=== PATIENT | female | born 1965 | race Caucasian/White ===

== ENCOUNTER → 2016-04-21 | Outpatient (CLI) | payer OTHER ==
[~2016-04-21] MED LIST: ADVIN25/60 INH; ALBU0.5N2 NEB; ALBUAER INH; FEXO1TAB49 PO; IBUPROFEN PO; LEVO150T9 PO; MYCO500T4 PO; PRED-301 PO; PRLSR20 PO
--- NOTE | 2016-04-21 11:18 | DIAGNOSTIC IMAGING REPORT ---
CT OF THE CHEST WITHOUT IV CONTRAST CLINICAL HISTORY: Post inflammatory pulmonary fibrosis COMPARISON STUDY: Chest CT January 06, 2007 and chest radiograph June 25, 2015. CT DOSE: 773.20 mGy.cm TECHNIQUE: Axial images of the chest were obtained without IV contrast. Images were reviewed in the axial, sagittal, and coronal planes. IV contrast was not administered for this examination. FINDINGS: No enlarged axillary, mediastinal or hilar lymph nodes are present. The size of the heart is at the upper limits of normal. The thymus is prominent. This is unchanged since CT of January 06, 2007. There is no pericardial effusion. Central airways are patent. There is no pneumothorax or pleural effusion. Mild mosaic attenuation is noted. There are scattered groundglass and tree-in-bud opacities within the lungs which are new since CT of January 06, 2007. There is no traction bronchiectasis. No honeycombing is identified. There are post surgical findings within the lingula and the left lower lobe. Bony thorax and upper abdomen are unremarkable on this unenhanced exam with exception of gallstones. IMPRESSION: 1. Scattered groundglass opacities and tree-in-bud nodules throughout the lungs. While nonspecific, an infectious etiology is favored. Interstitial lung disease such as NSIP could also in part account for the findings. A follow-up chest CT in 3 months to ensure resolution is recommended. 2. Mild mosaic attenuation which may reflect air trapping. 3. No honeycombing. No traction bronchiectasis. 4. Cholelithiasis. Electronically signed by: Gee Bagley M.D. 04/21/2016 11:16 AM Dictated Date/Time: 04/21/2016 10:45 AM
== END | disposition home or self-care (01) ==
LOC: C.CTS 10:27
PROVIDERS: ATTEND Internal Medicine Critical Care Medicine
DX: J84.10 Pulmonary fibrosis, unspecified (principal); R91.8 Other nonspecific abnormal finding of lung field; K80.20 Calculus of gallbladder without cholecystitis without obstruction

== ENCOUNTER → 2016-06-02 | Outpatient (CLI) | payer OTHER ==
--- NOTE | 2016-06-02 13:55 | MAMMOGRAPHY REPORT ---
BILATERAL DIGITAL DIAGNOSTIC MAMMOGRAM TOMOSYNTHESIS WITH CAD: 06/02/2016 CLINICAL HISTORY: Second follow-up of a probably benign focal asymmetry in the lower outer posterior left breast. Also annual bilateral screening mammogram. TECHNIQUE: Bilateral breast tomosynthesis in addition to standard 2D mammography was performed. Curr ent study was also evaluated with a Computer Aided Detection (CAD) system. COMPARISON: Comparison is made to exams dated: 04/18/2015 mammogram, 04/26/2015 mammogram, 04/26/2015 u ltrasound, and 12/03/2015 mammogram - [facility]. BREAST COMPOSITION: There are scattered areas of fibroglandular density in both breasts. FINDINGS: The 7 mm focal asymmetry in the lower outer posterior left breast is visually stable to so mewhat less conspicuous compared to the prior exams. Mammographic measurements are stable. No new suspicious mass, architectural distortion or new cluster of microcalcifications is seen bilaterally. IMPRESSION: ACR-BI-RADS CATEGORY 3: PROBABLY BENIGN The 7 mm focal asymmetry in the lower outer posterior left breast is unchanged in appearance dating back to 04/18/2015, most likely represents the patient's normal parenchymal pattern. However, given that no remote mammograms are available, another 12 month follow-up exam is recommended to ensure a t least 2 years of mammographic stability. Routine right mammography is also due at that time. These results and recommendations were discussed with the patient at the time of the exam. She tent atively scheduled the 12 month follow-up diagnostic mammogram prior to leaving our department. Approximately 10% of breast cancers are not detected with mammography. A negative mammographic repor t should not delay biopsy if a clinically suggestive mass is present. Jasmyn Miles M.D. ay/:06/02/2016 11:58:07 Investigations Manager: Ann PACE(Sharmila)(Noelle), [facility] letter sent: Follow Up Recommended 3 BI-RADS Code: ACR-BI-RADS Category 3: Probably Benign
== END | disposition home or self-care (01) ==
LOC: C.MAMM 10:55
PROVIDERS: ATTEND Obstetrics & Gynecology
DX: R92.8 Other abnormal and inconclusive findings on diagnostic imaging of breast (principal)

== ENCOUNTER → 2016-07-16 | Outpatient (CLI) | payer OTHER ==
[~2016-07-16] MED LIST changes: +CYCL10TA6 PO; +CZR50 PO; +ESTR1DIS TOP; +LEVO137T3 PO; +MTR800 PO; +MYCO500T5 PO; +OXYC-57 PO; +PRED20TA PO
--- NOTE | 2016-07-16 11:52 | DIAGNOSTIC IMAGING REPORT ---
CHEST CT WITHOUT CONTRAST CT DOSE: 423.78 mGycm HISTORY: Dyspnea J45.909 Extrinsic [id number] Acute upper respiratory infection TECHNIQUE: Multiaxial CT images of the chest were performed without contrast. COMPARISON: 04/21/2016 FINDINGS: No significant mediastinal or hilar adenopathy. Thoracic aorta is normal in course and caliber. Slight interstitial prominence in the lung bases as well as the right as well as left midlung region appear stable. There is no significant pulmonary nodularity. There are no consolidative changes. Upper lungs are considered clear. IMPRESSION: 1. Generally stable evaluation of the chest compared to the prior study. 2. Slight nonspecific interstitial prominence of the mid to lower lung regions bilaterally unaltered from the prior exam. 3. No evidence for new interval or progressive process. No consolidative infiltrative change. Electronically signed by: Dmitri Carbajal M.D. 07/16/2016 11:51 AM Dictated Date/Time: 07/16/2016 11:48 AM
== END | disposition home or self-care (01) ==
LOC: C.CTS 11:15
PROVIDERS: ATTEND Internal Medicine Critical Care Medicine
DX: J06.9 Acute upper respiratory infection, unspecified (principal); J45.909 Unspecified asthma, uncomplicated; R05 Cough

== ENCOUNTER → 2016-07-22 | Outpatient (CLI) | payer OTHER ==
[2016-07-22 12:12] LABS: BASO % 0.9 %; BASO ABS # 0.08 K/uL (0-0.2); COMPLETE YES; EOS % 6.5 %; HEMATOCRIT 46.9 % (37-47); IG% 0.3 %; LYMPH % 19.3 %; LYMPH ABS # 1.75 K/uL (1.2-3.4); MEAN CELL VOLUME 94.9 fL (80-100); MEAN CORPUSCULAR HEMOGLOBIN 29.6 pg (25-34); MEAN CORPUSCULAR HGB CONC 31.1 g/dl (32-36); MEAN PLATELET VOLUME 9.4 fL (7.4-10.4); MONO % 4.9 %; NEUT % 68.1 %; PLATELET COUNT 309 K/uL (130-400); RED BLOOD COUNT 4.94 M/uL (4.2-5.4); WHITE BLOOD COUNT 9.07 K/uL (4.8-10.8)
[2016-07-22 16:06] LABS: ALT/SGPT 24 U/L (12-78); AST/SGOT 21 U/L (15-37); BLOOD UREA NITROGEN 11 mg/dl (7-18); BUN/CREATININE RATIO 15.5 (10-20); CALCIUM 8.9 mg/dl (8.5-10.1); CARBON DIOXIDE 28 mmol/L (21-32); CHLORIDE 106 mmol/L (98-107); CREATININE 0.68 mg/dl (0.60-1.20); GLUCOSE 85 mg/dl (70-99); POTASSIUM 4.5 mmol/L (3.5-5.1); SODIUM 142 mmol/L (136-145)
[2016-07-22 16:13] LABS: HDL CHOLESTEROL 45 mg/dl
[2016-07-22 16:17] LABS: ALB/GLOB RATIO 0.7 (0.9-2); ALKALINE PHOSPHATASE 95 U/L (45-117); CHOLESTEROL 192 mg/dl (0-200); CHOLESTEROL/HDL RATIO 4.3; LDL CHOLESTEROL CALCULATED 126 mg/dl; TRIGLYCERIDES 103 mg/dl (0-150); VERY LOW DENSITY LIPOPROT CALC 21 mg/dl
== END | disposition home or self-care (01) ==
LOC: C.LAB1850 11:06
PROVIDERS: ATTEND Internal Medicine
DX: Z13.6 Encounter for screening for cardiovascular disorders (principal); E55.9 Vitamin D deficiency, unspecified; E03.9 Hypothyroidism, unspecified; Z79.899 Other long term (current) drug therapy

== ENCOUNTER → 2016-07-23 | Outpatient (CLI) | payer OTHER ==
[2016-07-25 16:54] LABS: ALBUMIN 3.7 G/DL (3.8-4.8); GAMMA GLOBULIN 1.5 G/DL (0.8-1.7); TOTAL PROTEIN 7.5 G/DL (6.2-8.3)
== END | disposition home or self-care (01) ==
LOC: C.LABBFT 10:48
PROVIDERS: ATTEND Internal Medicine
DX: Z11.59 Encounter for screening for other viral diseases (principal); D89.2 Hypergammaglobulinemia, unspecified

== ENCOUNTER → 2016-08-05 | Outpatient (CLI) | payer OTHER ==
[2016-08-08 08:07] LABS: CREATININE UR 123 MG/DL (20-320)
== END | disposition home or self-care (01) ==
LOC: C.LABBFT 09:42
PROVIDERS: ATTEND Internal Medicine
DX: D89.2 Hypergammaglobulinemia, unspecified (principal)

== ENCOUNTER → 2016-08-19 | Outpatient (CLI) | payer OTHER ==
--- NOTE | 2016-08-20 06:42 | SPLIT NIGHT TECHNICIAN REPORT ---
[facility] Split Night Polysomnogram - Pediatric Dietician Report Study date: 08/19/2016 Referring Physician: DR. IVANIA DELGADO Name: KRYSTAL SIMPSON Pediatric Dietician: LUANN Batista. Date of : 1965 Height: 50 years, Height 5' 3.5" Sex: Female Weight: 269 lbs Age: 50 BMI: Medications: 46.9 FEXOFENADINE 180 MG, LEVOFLOXACIN 750 MG, LOSARTAN 50 MG, ADVAIR DISKUS 250-50 MCG/DOSE, ALBUTEROL SULFATE, PROVENTIL HFA, ESTRADIOL 0.025 MG/24 HR, ESTRADIOL 0.075 MG/24 HR, MYCOPHENOLATE MOFETIL 500 MG, FLUTICASONE PROPIONATE, IBUPROFEN 800 MG, PREDNISONE 5 MG Patient History 50 yr-old female here for a baseline/split study. She has a history of excessive daytime sleepiness and snoring. Her [place] scale is 13. The test was started on room air. ETCO2 testing is included in this study. Room 1 Parameters Monitored NPSG: E1-M2, E2-M1, Fp1-M2, Fp2-M1, F3-M2, F4-M2, F4-M1, C3-M2, C4-M2, C4-M1, O1-M2, O2-M2, O2-M1, T3-M2, T4-M1, P3-M2, P4-M1, CHIN1, CHIN2, HR, EKG, Legs, PFLOW, SNOR, FLOW, CFLOW, Tidal Volume, THOR, ABDO, SpO2, PLTH, CPRESS, ETCO2 Wave, ETCO2, pH SLEEP SUMMARY DATA DIAGNOSTIC TREATMENT Lights Out: 10:15:45 PM 2:16:45 AM Lights On: 2:04:45 AM 5:48:45 AM Total Recording Time (TRT): 229.0 min. 212.0 min. Total Sleep Time (TST): 178.5 min. 191.5 min. NREM Time: 178.5 min. 126.0 min. REM Time: 0.0 min. 65.5 min. Sleep Period Time (SPT): 204.5 min. 199.0 min. Sleep Efficiency (SE): 78 % 90 % Sleep Latency: 24.5 min. 13.0 min. Arousal Index: 21.2 10.0 PAP Treatment Levels: 4, 6, 8, 10, 11 * Optimal Pressure(s) SLEEP STAGING DATA DIAGNOSTIC TREATMENT Duration (min) TST % Duration (min) TST % Stage Wake: 50.5 min. -- 20.5 min. -- WASO: 26.0 min. -- 7.5 min. -- NREM: 178.5 min. 100 % 126.0 min. 66 % Stage N1: 20.0 min. 11 % 12.5 min. 7 % Stage N2: 128.0 min. 72 % 76.0 min. 40 % Stage N3: 30.5 min. 17 % 37.5 min. 20 % REM: 0.0 min. 0 % 65.5 min. 34 % POSITIONAL DATA Event Count Index Event Count Index Supine: N/A N/A N/A N/A Supine NREM: N/A N/A N/A N/A Supine REM: N/A N/A N/A N/A Non-Supine: 65 21.2 97 30.4 Non-Supine NREM: 65 21.2 85 40.5 Non-Supine REM: N/A N/A 12 11.0 AROUSAL SUMMARY DATA: Event Count Index Event Count Index Apnea Arousals: 0 0.0 1 9.1 Hypopnea Arousals: 4 1.3 12 3.8 Snore Arousals: 6 2.0 1 0.3 PLM Arousals: 25 8.4 3 0.9 Non-Specific Arousals: 25 8.4 12 3.8 Total Arousals: 63 21.2 32 10.0 MYOCLONUS (PLM) Event Count Index Event Count Index PLM: 89 29.9 9 2.8 PLM AROUSAL: 25 8.4 3 0.9 PLM W/O AROUSAL 89 29.9 6 1.9 PLM W/RESP EVENT 3 0.0 1 0.0 MYOCLONUS (PLM) Event Count Index Event Count Index LM: 2 11.1 24 7.5 LM AROUSAL: 2 0.7 4 1.3 LM W/O AROUSAL LM W/RESP EVENT LM NON SPECIFIC 87 29.2 20 6.3 HEART RATE DATA DIAGNOSTIC TREATMENT Sleep (bpm): 89 87 REM (bpm): N/A 75 NREM (bpm): 83 88 Tachycardia Count: 0 0 Tachycardia Duration: 0.00 0 Bradycardia Count: 0 0 Bradycardia Duration: 0.00 0 DIAGNOSTIC PORTION TREATMENT PORTION RESPIRATORY DATA Event Count Index Event Count Index AHI: -- 21.2 -- 30.4 RDI: -- 21.8 -- 30 Obstructive Apnea: 0 0.0 28 8.8 Central Apnea: 0 0.0 1 0.3 Mixed Apnea: 0 0.0 0 0.0 Hypopnea: 63 21.2 68 21.3 RERA: 2 0.7 0 0.0 Total Apneas: 0 0.0 29 9.1 RESPIRATORY DATA REM NREM SLEEP REM NREM SLEEP Supine Position: Obstructive Apneas: N/A N/A N/A N/A N/A N/A Central Apneas: N/A N/A N/A N/A N/A N/A Mixed Apneas: N/A N/A N/A N/A N/A N/A Hypopneas: N/A N/A N/A N/A N/A N/A RERA N/A N/A N/A N/A N/A N/A Total Supine Events: N/A N/A N/A N/A N/A N/A Supine AHI: N/A N/A N/A N/A N/A N/A Supine RDI: N/A N/A N/A N/A N/A N/A REM NREM SLEEP REM NREM SLEEP Non-Supine Position: Obstructive Apneas: N/A 0 0 0 28 28 Central Apneas: N/A 0 0 1 0 1 Mixed Apneas: N/A 0 0 0 0 0 Hypopneas: N/A 63 63 11 57 68 RERA N/A 2 2 0 0 0 Total Supine Events: N/A 65 65 12 85 97 Supine AHI: N/A 21.2 21.2 11.0 40.5 30.4 Supine RDI: N/A 21.8 21.8 11.0 40.5 30.4 OXYGEN DESTAURATION DATA: Event Count Index Event Count Index REM Desaturations: N/A N/A 41 37.6 NREM Desaturations: 144 48.4 108 51.4 SNORE DATA DIAGNOSTIC TREATMENT Snore Time: 12.4 2:29:45 AM Snore TST%: 5 3 Snore Arousal Count: 6 1 Snore Arousal Index: 2.0 0.3 Desaturation Event Summary: Minimum %SpO2 Event Count Mean/Min/Max Duration(sec.) Desaturation Index % Time In Bed > 90 48 18.1 / 7.0 / 55.8 141.0 4.7 86 - 90 182 18.2 / 5.0 / 59.8 53.7 46.8 81 - 85 111 19.4 / 5.0 / 59.8 60.9 25.1 76 - 80 49 18.5 / 6.3 / 52.8 39.7 17.0 71 - 75 5 16.6 / 5.0 / 40.5 35.8 1.9 66 - 70 8 19.2 / 5.0 / 44.5 90.0 1.2 61 - 65 7 20.7 / 8.8 / 30.5 37.9 2.6 56 - 60 0 N/A 0.0 0.6 51 - 55 0 N/A 0.0 0.0 < 50 0 N/A 0.0 0.0 OXYGEN SATURATION DATA DIAGNOSTIC TREATMENT SpO2 Mean Sleep: 83 % 83 % SpO2 Mean REM: N/A % 75 % SpO2 Mean NREM: 83 % 88 % SpO2 Minimum Sleep: 72 % 56 % SpO2 Minimum REM: N/A % 56 % SpO2 Minimum NREM: 72 % 80 % Time Below 90% (TST): 167.7 157.9 Time Below 88% (TST): 151.9 117.9 Total REM NREM Awake <50% 0.0 min. 0.0 min. 0.0 min. 0.0 min. 51 - 60% 2.6 min. 2.6 min. 0.0 min. 0.0 min. 61 - 70% 16.4 min. 16.4 min. 0.0 min. 0.0 min. 71 - 80% 82.5 min. 27.0 min. 55.4 min. 0.1 min. 81 - 90% 312.9 min. 19.5 min. 236.8 min. 56.5 min. 91 - 100% 20.4 min. 0.0 min. 12.3 min. 8.1 min. Average 84 75 85 89 Minimum SpO2 56 56 72 77 Desaturation Event Index 41.1 37.6 49.7 7.6 # Desat. Events below 89% 300 41 251 8 Time(%) with Saturation below 89% 74.8 15.0 53.2 6.7 Time(min.) with Saturation below 89% 325.2 65.1 231.2 28.9 Recording Pediatric Dietician Comments: Ms. Simpson slept in the right and left positions. No cardiac arrhythmias were noted. PLMs were noted. No bruxism noted. Snoring was noted and scored as a 2-3 on a scale of 1 through 5. (0=no snoring, 5=snoring loud enough to be heard through a closed door or down the lim way) High ETCO2 levels were noted. At 2:05, she met specific Split-Night criteria during the diagnostic portion of this study. CPAP was initiated at +4 CMH2O and up-titrated to a level of +11 CMH2O, Cflex 2 which nearly eliminated all respiratory events and snoring. A Mirage FX Soft edge nasal mask size standard from [employer] was used during titration She awoke to use the restroom two times during the night. Ms. Simpson stated that she slept a little better than usual. The final report will be interpreted and signed by a sleep physician. The completed physician report will then be placed in the patient medical record. Therapy Event: Therapy (cm H20) 0 4 6 8 10 11 Total Time at Pressure (min.) 229.0 30.4 13.1 30.0 50.0 88.5 TST at Pressure (min.) 178.5 13.9 12.6 27.5 50.0 87.5 # Periods 1 1 1 1 1 1 Sleep Onset (min.) 24.5 13.0 0.0 0.0 0.0 0.0 REM Onset (min.) N/A N/A N/A 27.6 0.0 0.0 Sleep Efficiency % 77 45 96 91 100 98 Wakefulness (%) 22.1 54.3 3.8 8.3 0.0 1.1 Wakefulness (min.) 50.5 16.5 0.5 2.5 0.0 1.0 NREM 1 (%) 8.7 29.2 4.8 5.0 0.0 1.7 NREM 1 (min.) 20.0 8.9 0.6 1.5 0.0 1.5 NREM 2 (%) 55.9 16.5 91.4 76.8 0.0 40.7 NREM 2 (min.) 128.0 5.0 11.9 23.1 0.0 36.0 NREM 3 (%) 13.3 0.0 0.0 1.7 0.0 41.8 NREM 3 (min.) 30.5 0.0 0.0 0.5 0.0 37.0 REM (%) 0.0 0.0 0.0 8.2 100.0 14.7 REM (min.) 0.0 0.0 0.0 2.5 50.0 13.0 # Arousals 63 15 3 5 0 9 Arousal Index 21.2 64.9 14.3 10.9 0.0 6.2 # Snore 539 8 25 43 102 42 Snore Index 181.2 34.6 119.5 93.7 122.4 28.8 AHI 21.2 43.2 114.7 98.1 10.8 6.2 AHI Supine N/A N/A N/A N/A N/A N/A AHI Non-Supine 21.2 43.2 114.7 98.1 10.8 6.2 NREM AHI 21.2 43.2 114.7 102.9 N/A 6.4 REM AHI N/A N/A N/A 48.8 10.8 4.6 RDI 21.8 43.2 114.7 98.1 10.8 6.2 # Obstructive 0 0 3 25 0 0 # Central Ap 0 0 0 0 1 0 # Mixed 0 0 0 0 0 0 # Hypopneas 63 10 21 20 8 9 RERAS 2 0 0 0 0 0 Total Respiratory Events 65 10 24 45 9 9 Time Below SpO2 89.00% (min.) 160.2 12.7 9.6 21.6 50.0 42.2 Mean NREM SpO2 (%) 83 85 86 87 N/A 89 Mean REM SpO2 (%) N/A N/A N/A 73 73 85 Mean Sleep SpO2 (%) 83 85 86 85 73 88 Min NREM SpO2 (%) 72 82 81 80 N/A 83 Min REM SpO2 (%) N/A N/A N/A 59 56 80 Position Supine (min.) 0.0 0.0 0.0 0.0 0.0 0.0 Position Non-supine (min.) 178.5 13.9 12.6 27.5 50.0 87.5 LM Index Sleep 41.0 25.9 14.3 13.1 0.0 12.3 LM Index NREM 41.0 25.9 14.3 14.4 N/A 13.7 LM Index REM N/A N/A N/A 0.0 0.0 4.6 Mean Heart Rate (bpm) 89 85 82 83 94 86 Min Heart Rate (bpm) 71 80 73 68 87 71 CPAP REPORT Therapy Detail Time / Page # Comment CPAP 4 cm H2O Nasal Mask Flex Pressure Relief Humidifier on 2:16:32 AM / pg. 700 HER AHI IS OER 20. SHE HAS BEEN ASLEEP FOR OVER 2 HOURS. DUE TO LOW O2 SATS, STARTING SPLIT CPAP TEST AT AN AHI OF 20 CPAP 6 cm H2O Nasal Mask Flex Pressure Relief Humidifier on 2:47:07 AM / pg. 761 IINCREASED FOR HYPOPNEAS CPAP 8 cm H2O Nasal Mask Flex Pressure Relief Humidifier on 3:00:10 AM / pg. 787 EVENTS CPAP 10 cm H2O Nasal Mask Flex Pressure Relief Humidifier on 3:30:12 AM / pg. 847 INCREASED FOR APNEAS CPAP 11 cm H2O Nasal Mask Flex Pressure Relief Humidifier on 4:20:12 AM / pg. 947 INCREASED FOR HYPOPNEAS AND SNORING
--- NOTE | 2016-08-21 09:00 | POLYSOMNOGRAPH REPORT ---
CLINICAL DATA: A 50-year-old female with history of interstitial lung disease, rheumatoid arthritis, loud snoring and fatigue. She is referred by Dr. Rowley for a sleep study because of snoring and excessive daytime sleepiness. Her BMI is elevated at 47. Her [place] Sleepiness Score is elevated at 13/24. This was a split night sleep study. SLEEP ARCHITECTURE: For the diagnostic portion of the study, total sleep period was 204.5 minutes. Total sleep time was 178.5 minutes, all non-REM sleep. Sleep latency was 24.5 minutes. Arousal index was 21.2. Sleep efficiency was 78%. Sleep consisted of stage N1 11%, N2 72%, N3 17%. For the treatment portion of the study, total sleep period was 199 minutes. Total sleep time was 191.5 minutes divided between 126 minutes of non-REM sleep and 65.5 minutes of REM sleep. Sleep latency was 13 minutes. Arousal index was 10. Sleep efficiency was 90%. Sleep consisted of stage N1 7%, N2 40% and N3%, REM 34%. AROUSAL DATA: Prior to treatment, 63 arousals were recorded for an index of 21.2 per hour. During treatment 32 arousals were recorded for an index of 10 per hour. PLM DATA: Prior to treatment, 89 limb movements during sleep were noted for an index of 29.9 per hour. During treatment, 24 limb movements during sleep were noted for an index of 7.5 per hour. EKG: Heart rates ranged from 75-89 beats per minute. No arrhythmias were noted. RESPIRATORY DATA: Prior to treatment, moderate sleep apnea was documented. The AHI was 21.2. There were 63 hypopneic episodes and 2 RERAs noted. During treatment, the average AHI was 30.4. There were 28 obstructive and 1 mixed apneic episode. There were 68 hypopneic episodes. OXIMETRY DATA: Nocturnal hypoxemia was seen prior to treatment. Oxygen arnulfo was 72% prior to treatment during non-REM sleep. The mean saturation during treatment was 83%. ADJUNCT HISTORY INSTRUCTOR'S COMMENTS AND TREATMENT SUMMARY: The patient slept in the right and left positions. Snoring was moderate, rated 3 on a scale of 1-5. At 2:05 a.m., she met split night criteria. CPAP was started using a Mirage FX soft edge nasal mask size standard from [employer]. She was titrated up to her final pressure setting of 11 cm of water pressure. At 11 cm of water pressure, she slept for 87.5 minutes with an AHI of 6. She continued to have persistent nocturnal hypoxemia intermittently in spite of CPAP. IMPRESSION: Moderate sleep apnea/hypopnea with diagnostic AHI of 21.2 with significant nocturnal hypoxemia improved on CPAP 11 cm water pressure, C-Flex setting #2, Mirage FX soft edge nasal mask size standard from [employer]. In spite of this the patient continued to have nocturnal hypoxemia. RECOMMENDATIONS: The patient should be started on CPAP at the above noted settings. Overnight pulse oximetry with CPAP in place should be performed. If the patient shows signs of desaturation, oxygen should be added to her CPAP. Sleep medicine consultation may be of benefit. TETE
== END | disposition home or self-care (01) ==
LOC: C.NEUR 20:00
PROVIDERS: ATTEND Internal Medicine Critical Care Medicine
DX: G47.33 Obstructive sleep apnea (adult) (pediatric) (principal)

== ENCOUNTER → 2016-09-05 | Outpatient (CLI) | payer OTHER ==
[~2016-09-05] VITALS: Ht 161.3 cm; Wt 271.2 kg
[2016-09-05 15:41] VITALS: BP 155/88; PULSE 100; Ht 161.3 cm; Wt 271.2 kg
== END | disposition home or self-care (01) ==
LOC: C.NEUR 14:50
PROVIDERS: ATTEND Physician Assistant
DX: G47.33 Obstructive sleep apnea (adult) (pediatric) (principal); J84.9 Interstitial pulmonary disease, unspecified

== ENCOUNTER → 2016-10-29 | Outpatient (CLI) | payer OTHER ==
[~2016-10-29] MED LIST changes: -CYCL10TA6 PO; -LEVO137T3 PO
[2016-10-29 12:28] LABS: BASO % 0.1 %; BASO ABS # 0.01 K/uL (0-0.2); COMPLETE YES; EOS % 0.5 %; HEMATOCRIT 45.7 % (37-47); IG% 0.4 %; LYMPH ABS # 1.93 K/uL (1.2-3.4); MEAN CORPUSCULAR HGB CONC 30.4 g/dl (32-36); MEAN PLATELET VOLUME 9.8 fL (7.4-10.4); MONO % 5.5 %; NEUT % 78.5 %; PLATELET COUNT 311 K/uL (130-400); RED BLOOD COUNT 4.97 M/uL (4.2-5.4); WHITE BLOOD COUNT 12.84 K/uL (4.8-10.8)
[2016-10-29 12:59] LABS: ALT/SGPT 22 U/L (12-78); AST/SGOT 11 U/L (15-37); CREATININE 0.65 mg/dl (0.60-1.20)
[2016-10-29 13:04] LABS: RHEUMATOID FACTOR 26.7 U/mL (0-15); TOTAL IRON BINDING CAPACITY 310 mcg/dl (250-450)
[2016-11-02 04:26] LABS: ALBUMIN 3.6 G/DL (3.8-4.8); ANTI-CENTROMERE AB <1.0 NEG AI (<1.0 NEG); ANTI-SS-A <1.0 NEG AI (<1.0 NEG); ANTI-SS-B <1.0 NEG AI (<1.0 NEG); DNA ds CRITHIDIA NEGATIVE (NEGATIVE); GAMMA GLOBULIN 1.3 G/DL (0.8-1.7); IGG SERUM 1250 mg/dL (694-1618); MICROSOMAL AB 2 IU/ML (<9); Sm Antibody <1.0 NEG AI (<1.0 NEG); TOTAL PROTEIN 7.1 G/DL (6.2-8.3)
== END | disposition home or self-care (01) ==
LOC: C.LAB1850 11:39
PROVIDERS: ATTEND Internal Medicine Rheumatology
DX: M05.9 Rheumatoid arthritis with rheumatoid factor, unspecified (principal); Z79.899 Other long term (current) drug therapy; J84.9 Interstitial pulmonary disease, unspecified

== ENCOUNTER → 2016-11-05 | Outpatient (CLI) | payer OTHER ==
--- NOTE | 2016-11-05 12:53 | DIAGNOSTIC IMAGING REPORT ---
(CHEST) THORAX WITHOUT CT DOSE: 942.62 mGy.cm CLINICAL HISTORY: 50 years-old Female with R09.02 Hypoxemia. History of interstitial lung disease with progressive shortness of breath. TECHNIQUE: Multiaxial CT images of the chest were performed without contrast. A dose lowering technique was utilized adhering to the principles of ALARA. COMPARISON: CT chest 07/16/2016. FINDINGS: No dominant thyroid nodule is seen. No pathology adenopathy identified. Heart is mildly enlarged without pericardial effusion. Thoracic aorta is normal in both course and caliber without significant atherosclerotic vascular disease. There is dilation of the main pulmonary artery, 3.5 cm suggesting background pulmonary arterial hypertension. There is transient annular a more for soft tissue attenuation of the prevascular space, unchanged suggestive of residual thymic tissue. No pneumothorax or pleural effusion. There is minimal subpleural reticulation of the bilateral lung bases without associated honeycombing, bronchiectasis or significant air trapping. This pattern of disease appears similar to mildly improved from prior study. Linear hyperattenuating material seen within the left lung base suggesting postsurgical change. No lobar airspace consolidations or suspicious nodules are identified. Central airways are patent. Imaged upper abdominal structures are within normal limits. Soft tissues are unremarkable. Bones appear intact. Multilevel discogenic degenerative changes of the spine are noted. IMPRESSION: 1. No acute cardiopulmonary process. 2. Mild nonspecific subpleural reticulation of the bilateral lung bases appears similar to mildly improved from prior study. No associated honeycombing, bronchiectasis or significant air trapping. 3. Postsurgical changes of the left lung base. 4. Dilation of the main pulmonary artery suggests background pulmonary arterial hypertension. Electronically signed by: Kai Ceja M.D. 11/05/2016 12:51 PM Dictated Date/Time: 11/05/2016 12:46 PM
--- NOTE | 2016-11-05 14:25 | ECHOCARDIOGRAM REPORT ---
*NOTICE TO RECEIVING LIBERTARIAN AGENCY This information is strictly Confidential and protected under [place] law. [place] law prohibits you from making any further disclosure of this information unless further disclosure is expressly permitted by the written consent of the person to whom it pertains or is authorized by law. A general authorization for the release of medical or other information is not sufficient for this purpose. Hospital accepts no responsibility if the information is made available to any other person, INCLUDING THE PATIENT. Interpretation Summary * Name: KRYSTAL AMEZQUITA Study Date: 11/05/2016 12:40 PM BP: 159/75 mmHg * Patient Location: [facility] HR: 99 * : 1965 (M/d/yyyy) Gender: Female Height: 63 in * Age: 50 yrs Ethnicity: CA Weight: 265 lb * Ordering Physician: Carson Rowley * Referring Physician: Carson Rowley * Performed By: Patricia Vee RDCS * * Reason For Study: Hypoxia, interstitial lung disease * BSA: 2.2 m2 * -- Conclusions -- * Left ventricular systolic function is normal. * No regional wall motion abnormalities noted. * Ejection Fraction = 60-65%. * Grade I diastolic dysfunction, (abnormal relaxation pattern). * No significant valvular pathology. Procedure Details * A complete two-dimensional transthoracic echocardiogram was performed (2D, M-mode, Doppler and color flow Doppler). Left Ventricle * The left ventricle is normal in size. * There is normal left ventricular wall thickness. * Ejection Fraction = 60-65%. * Left ventricular systolic function is normal. * No regional wall motion abnormalities noted. Right Ventricle * The right ventricle is grossly normal size. * The right ventricular systolic function is normal as assessed by tricuspid annular plane systolic excursion (TAPSE) (normal >1.5 cm). Atria * The left atrium is mildly dilated. * Borderline right atrial enlargement. * No ASD detected; PFO is not assessed. Mitral Valve * The mitral valve anatomy is normal. * There is no mitral valve stenosis. * Significant mitral regurgitation is absent. Tricuspid Valve * The tricuspid valve is not well visualized, but is grossly normal. * There is no tricuspid stenosis. * Significant tricuspid regurgitation is absent. Aortic Valve * The aortic valve is not well visualized. * The aortic valve opens well. * No hemodynamically significant valvular aortic stenosis. * No aortic regurgitation is present. Pulmonic Valve * The pulmonary valve is not well seen, but the Doppler examination is normal without significant regurgitation or stenosis. Great Vessels * The aortic root is normal size. * The pulmonary is not well visualized. Pericardium/Pleural * There is no pericardial effusion. Great Vessels * Inferior vena cava not well visualized. Left Ventricular Diastolic Function * Grade I diastolic dysfunction, (abnormal relaxation pattern). MMode 2D Measurements and Calculations IVSd 0.85 cm LVIDd 5.2 cm LVIDs 3.5 cm LVPWd 1.2 cm IVS/LVPW 0.73 FS 31.4 % EDV(Teich) 127.1 ml ESV(Teich) 52.2 ml EF(Teich) 59.0 % EDV(cubed) 137.3 ml ESV(cubed) 44.2 ml EF(cubed) 67.8 % LV mass(C)d 191.4 grams LV mass(C)dI 87.8 grams/m\S\2 CO(Teich) 6.1 l/min CI(Teich) 2.8 l/min/m\S\2 SV(Teich) 75.0 ml SI(Teich) 34.4 ml/m\S\2 CO(cubed) 7.6 l/min CI(cubed) 3.5 l/min/m\S\2 SV(cubed) 93.0 ml SI(cubed) 42.7 ml/m\S\2 Ao root diam 3.5 cm Ao root area 9.7 cm\S\2 ACS 1.9 cm LA dimension 3.6 cm LA/Ao 1.0 LVOT diam 2.0 cm LVOT area 3.1 cm\S\2 LVAd ap4 26.2 cm\S\2 LVLd ap4 7.4 cm EDV(MOD-sp4) 82.4 ml LVAs ap4 14.6 cm\S\2 LVLs ap4 6.1 cm ESV(MOD-sp4) 30.9 ml EF(MOD-sp4) 62.5 % LVAd ap2 19.9 cm\S\2 LVLd ap2 6.6 cm EDV(MOD-sp2) 52.3 ml LVAs ap2 11.7 cm\S\2 LVLs ap2 6.0 cm ESV(MOD-sp2) 19.8 ml EF(MOD-sp2) 62.1 % CO(MOD-sp4) 4.2 l/min CI(MOD-sp4) 1.9 l/min/m\S\2 SV(MOD-sp4) 51.5 ml SI(MOD-sp4) 23.6 ml/m\S\2 CO(MOD-sp2) 2.7 l/min CI(MOD-sp2) 1.2 l/min/m\S\2 SV(MOD-sp2) 32.5 ml SI(MOD-sp2) 14.9 ml/m\S\2 Doppler Measurements and Calculations MV E max fay 73.2 cm/sec MV A max fay 80.5 cm/sec MV E/A 0.91 MV dec time 0.20 sec Ao V2 max 142.4 cm/sec Ao max PG 8.1 mmHg Ao max PG (full) 4.8 mmHg DAWN(V,A) 2.0 cm\S\2 DAWN(V,D) 2.0 cm\S\2 LV V1 max PG 3.3 mmHg LV V1 max 91.2 cm/sec PA V2 max 99.1 cm/sec PA max PG 3.9 mmHg PA acc slope 879.0 cm/sec\S\2 PA acc time 0.07 sec PA pr(Accel) 45.7 mmHg
== END | disposition home or self-care (01) ==
LOC: C.CTS 12:28
PROVIDERS: ATTEND Internal Medicine Critical Care Medicine
DX: R09.02 Hypoxemia (principal); J84.9 Interstitial pulmonary disease, unspecified; Z79.899 Other long term (current) drug therapy; G47.33 Obstructive sleep apnea (adult) (pediatric); M06.9 Rheumatoid arthritis, unspecified

== ENCOUNTER → 2016-12-11 | Outpatient (CLI) | payer OTHER ==
[~2016-12-11] VITALS: Ht 162.6 cm; Wt 122.4 kg
[2016-12-11 14:05] VITALS: BP 151/94; PULSE 94; BMI 45.6
[2016-12-11 14:26] VITALS: BP 151/94; PULSE 94; Ht 162.6 cm; Wt 122.4 kg
== END | disposition home or self-care (01) ==
LOC: C.NEUR 13:47
PROVIDERS: ATTEND Physician Assistant
DX: G47.33 Obstructive sleep apnea (adult) (pediatric) (principal)

== ENCOUNTER 2016-12-21 17:31 | Emergency (ER) | payer OTHER ==
[~2016-12-21] VITALS: Ht 160 cm; Wt 124.3 kg
[~2016-12-21 17:31] MED LIST changes: -CZR50 PO; -ESTR1DIS TOP; -MTR800 PO; -MYCO500T5 PO; -OXYC-57 PO; -PRED20TA PO
[2016-12-21 17:34] VITALS: TEMP 36.8; Ht 160 cm; Wt 124.3 kg
[2016-12-21] MEDS ORDERED: ONDANSETRON INJ 2 MG/ML 2 ML VIAL IV STA (18:22)
[2016-12-21] MEDS ORDERED: MoRPHine SULFATE 10 MG/ML CARP/VIAL IV STA ×2 (18:22→20:57)
--- NOTE | 2016-12-21 18:55 | EMERGENCY ROOM VISIT NOTE ---
History First contact with patient: 18:08 Chief Complaint: BACK PAIN Stated Complaint: RT SIDE BACK PAIN,PAIN GOING DOWN GROIN INTO THIGH History of Present Illness The patient is a 51 year old female who presents to the Emergency Room with complaints of pain in the right lower back. The patient states that the pain began 5 days ago and has been gradually worsening. She states that the pain feels "like a toothache" and worsens when she is standing. The pain radiates from the right lower back down the back of the leg and into the foot. She reports numbness to the touch from the knee down. She states that the right leg feels weak compared to the left and she has difficulty lifting it up. The patient takes prednisone daily due to pulmonary fibrosis and states that she recently increased her dose because she felt this may help her back pain. She is currently taking 30 mg daily. She took one of her sister's tramadol without relief. She saw a chiropractor a few days ago and was told that her pelvis was twisted. She states that they adjusted her, but this did not help her pain. She does report she has had some trouble holding her urine. She states this is chronic for her, but seems to be worsened since her back pain started. She denies any abdominal pain, nausea/vomiting or fevers. She denies any history of back problems. She denies any trauma to the back. Review of Systems A complete 10 point review of systems was reviewed with the patient with pertinent positives and negatives as per history of present illness. All else were negative. Past Medical/Surgical History Medical Problems: (1) Pulmonary fibrosis (2) Rheumatoid arthritis Family History Heart disease Hypertension Lung disease Social History Smoking Status: Never Smoker Alcohol Use: none Drug Use: none Marital Status: Housing Status: lives with family Occupation Status: employed Current/Historical Medications Scheduled Estradiol (Estradiol), 1 PATCH TOP 2XWK Fexofenadine Hcl (Silvia Allergy), 180 MG PO HS Ibuprofen (Ibuprofen), 800 MG PO TID Levothyroxine Sodium (Levothyroxine Sodium), 150 MCG PO QAM Losartan Potassium (Losartan Potassium), 50 MG PO DAILY Mycophenolate Mofetil (Mycophenolate Mofetil), 500 MG PO BID Omeprazole (Prilosec), 20 MG PO QAM Prednisone (Prednisone), 10 MG PO DAILY Prednisone (Prednisone), 20 MG PO DAILY Scheduled PRN Albuterol Sulfate (Proventil Hfa), 2 PUFFS INH QID PRN for SOB/Wheezing Fluticasone Prop/Salmeterol (Advair Diskus 250/50 60 Dose), 1 PUFF INH BID PRN for SOB/Wheezing Oxycodone/Acetaminophen 5MG/325MG (Percocet 5MG/325MG), 1-2 TABS PO Q4H PRN for Pain Physical Exam Vital Signs Date Time Temp Pulse Resp B/P (MAP) Pulse Ox O2 Delivery O2 Flow Rate FiO2 12/21/16 21:49 151/105 12/21/16 21:06 90 18 169/102 93 Nasal Cannula 2.0 12/21/16 17:34 36.8 108 18 140/93 96 Nasal Cannula 2.0 Physical Exam VITALS: Vitals are noted on the nurse's note and reviewed by myself. Vital signs stable. GENERAL: This is a 51-year-old female, in no acute distress, nondiaphoretic, well-developed well-nourished. SKIN: No rashes noted. HEART: Regular rate and rhythm without murmurs gallops or rubs. LUNGS: Clear to auscultation bilaterally without wheezes, rales or rhonchi. ABDOMEN: Soft, nontender to palpation. MUSCULOSKELETAL: Mild tenderness to the right lumbar region. Strength is slightly decreased in the right lower extremity. Patellar reflexes 2+ bilaterally. NEURO: Patient was alert and oriented to person place and time. Decreased sensation over the right lower extremity compared to the left. Medical Decision & Procedures ER Provider Diagnostic Interpretation: LUMBAR SPINE W/O CONTRAST FINDINGS: Localizer images: Unremarkable. Normal lumbar lordosis. Focal endplate concavity along the superior and inferior endplates of L1 likely Schmorl's nodes. Additional endplate irregularity anteriorly along the superior endplate of L3, either Schmorl's node or chronic posttraumatic deformity as no bone marrow edema is noted. The remaining vertebral bodies demonstrate normal height, alignment, bone marrow signal intensity. Intervertebral disc height loss noted at L3-4, where there is a focal large disc extrusion with caudal migration extending 20 mm below the superior endplate of L4. This extruded disc fragment measures 10 x 12 mm in maximal axial dimensions. Resultant right paracentral effacement of the anterior thecal sac at this level does not result in significant spinal canal narrowing. However, the extruded fragment causes significant effacement of the superior portion of the right lateral recess at L4-5 with resultant mass effect on the exiting right L4 nerve root. Additionally, mild bilateral neural foraminal narrowing also noted at L3-4 secondary to disc bulge. Remaining levels are essentially normal without significant neural foraminal or spinal canal narrowing. Spinal cord ends in good position at the inferior endplate of L1. Cauda equina normal. Paraspinal soft tissues normal. No muscular edema. IMPRESSION: Significant disc extrusion at L3-4 as described above. Resultant effacement of the superior portion of the right lateral recess at L4-5. This exerts mass effect on the exiting right L4 nerve root. No impingement of the cauda equina. Laboratory Results 12/21/16 18:40 Red Blood Count 4.97, Mean Corpuscular Volume 91.1, Mean Corpuscular Hemoglobin 29.4, Mean Corpuscular Hemoglobin Concent 32.2, Mean Platelet Volume 9.1, Neutrophils (%) (Auto) 71.0, Lymphocytes (%) (Auto) 15.3, Monocytes (%) (Auto) 7.9, Eosinophils (%) (Auto) 2.3, Basophils (%) (Auto) 0.4, Neutrophils # (Auto) 7.25, Lymphocytes # (Auto) 1.56, Monocytes # (Auto) 0.81, Eosinophils # (Auto) 0.24, Basophils # (Auto) 0.04 12/21/16 18:40 Test 12/21/16 18:40 12/21/16 19:00 White Blood Count 10.22 K/uL (4.8-10.8) Red Blood Count 4.97 M/uL (4.2-5.4) Hemoglobin 14.6 g/dL (12.0-16.0) Hematocrit 45.3 % (37-47) Mean Corpuscular Volume 91.1 fL (80-100) Mean Corpuscular Hemoglobin 29.4 pg (25-34) Mean Corpuscular Hemoglobin Concent 32.2 g/dl (32-36) Platelet Count 232 K/uL (130-400) Mean Platelet Volume 9.1 fL (7.4-10.4) Neutrophils (%) (Auto) 71.0 % Lymphocytes (%) (Auto) 15.3 % Monocytes (%) (Auto) 7.9 % Eosinophils (%) (Auto) 2.3 % Basophils (%) (Auto) 0.4 % Neutrophils # (Auto) 7.25 K/uL (1.4-6.5) Lymphocytes # (Auto) 1.56 K/uL (1.2-3.4) Monocytes # (Auto) 0.81 K/uL (0.11-0.59) Eosinophils # (Auto) 0.24 K/uL (0-0.5) Basophils # (Auto) 0.04 K/uL (0-0.2) RDW Standard Deviation 57.1 fL (36.4-46.3) RDW Coefficient of Variation 17.3 % (11.5-14.5) Immature Granulocyte % (Auto) 3.1 % Immature Granulocyte # (Auto) 0.32 K/uL (0.00-0.02) Anion Gap 5.0 mmol/L (3-11) Est Creatinine Clear Calc Drug Dose 101.6 ml/min Estimated GFR () 94.0 Estimated GFR (Non- 81.1 BUN/Creatinine Ratio 16.3 (10-20) Calcium Level 8.4 mg/dl (8.5-10.1) Urine Color YELLOW Urine Appearance CLOUDY (CLEAR) Urine pH 7.0 (4.5-7.5) Urine Specific [place] 1.016 (1.000-1.030) Urine Protein NEG (NEG) Urine Glucose (UA) NEG (NEG) Urine Ketones NEG (NEG) Urine Occult Blood NEG (NEG) Urine Nitrite NEG (NEG) Urine Bilirubin NEG (NEG) Urine Urobilinogen NEG (NEG) Urine Leukocyte Esterase NEG (NEG) Urine WBC (Auto) 1-5 /hpf (0-5) Urine RBC (Auto) 0-4 /hpf (0-4) Urine Hyaline Casts (Auto) 0 /lpf (0-5) Urine Epithelial Cells (Auto) >30 /lpf (0-5) Urine Bacteria (Auto) NEG (NEG) Medications Administered Medications (Trade) Dose Ordered Sig/Molly Route Start Time Stop Time Status Last Admin Dose Admin Morphine Sulfate (MoRPHine SULFATE INJ) 6 mg NOW STAT IV 12/21/16 18:22 12/21/16 18:23 DC 12/21/16 19:05 6 MG Ondansetron HCl (Zofran Inj) 4 mg NOW STAT IV 12/21/16 18:22 12/21/16 18:23 DC 12/21/16 19:05 4 MG Morphine Sulfate (MoRPHine SULFATE INJ) 6 mg NOW STAT IV 12/21/16 20:57 12/21/16 20:58 DC 12/21/16 21:05 6 MG Oxycodone/ Acetaminophen (Percocet 5/ 325MG Home Pack) 1 homepack UD ONCE PO 12/21/16 21:30 12/21/16 21:31 DC 12/21/16 21:41 1 HOMEPACK ED Course The patient was evaluated as above. Labs were drawn and IV access was obtained. Patient was medicated with 6 mg morphine and 4 mg Zofran IV. MRI of the lumbar spine was performed and read by radiology as above. Patient was reevaluated and was having increased pain. She was given an additional dose of IV morphine. Case was discussed with Ariane Meza PA-C with orthopedic spine. Discharge instructions were reviewed with the patient. The patient verbalized understanding of my assessment and treatment plan and was discharged home in good condition. Medical Decision Differential diagnosis includes cauda equina syndrome, cord compression, disc herniation, muscle spasm, lumbar strain, epidural abscess, malignancy, transverse myelitis, urinary tract infection, colitis, diverticulitis, kidney stone, among others. The patient is a 51-year-old female who presents today complaining of with back pain. The patient also notes numbness and weakness of the right leg. Reflexes are normal, but on exam the patient's right leg does appear to be weaker than the left and she has decreased sensation from the knee down. Labs were unremarkable. MRI was performed and did show a large disc bulge with nerve compression. Fortunately, there was no evidence of cauda equina syndrome. The patient had good relief with IV morphine in the emergency department. The case was discussed with Lorenzo Romo with orthospine. She recommends having the patient call first thing in the morning to schedule a follow-up appointment. The patient was given a home pack and prescription of Percocet for pain. Conservative measures were discussed. She was agreeable to the treatment plan. . Based on the patient's presentation and work up, I feel the patient is stable for outpatient treatment. The patient was educated to return to the emergency department for any worsening of their current condition or new/concerning symptoms. She will follow up with ortho spine. [facility] Drug Monitoring Program Search Results: patient reviewed within database, no issues identified Medication Reconcilliation Current Medication List: was personally reviewed by me Blood Pressure Screening Patient's blood pressure: Elevated blood pressure Blood pressure disposition: Elevated BP felt to be situational Impression Primary Impression: Bulging lumbar disc Departure Information Dispostion Home / Self-Care Condition GOOD Prescriptions Oxycodone/Acetaminophen 5MG/325MG (PERCOCET 5MG/325MG) Tab 1-2 TABS PO Q4H Y for Pain, #24 TAB For Initial Treatment Prov: Ella Sow ., MARY LOU 12/21/16 Referrals Tim Hinton M.D. (PCP) Rashad Lambert D.O. Patient Instructions My [facility] Additional Instructions You have been treated in the Emergency Department for Back Pain. You have received pain medicine in the emergency department which impairs your ability to operate a vehicle. It is illegal for you to drive after receiving these medicines. You have been prescribed Percocet to be used for pain control. This is a narcotic medication. You cannot drive or consume alcohol while on this medicine. This medicine should only be used for pain that cannot be controlled with [id number] pain medicines. Call Dr. Lambert's office first thing tomorrow morning to schedule a follow-up appointment with Dr. Lambert or Ariane Meza. Let them know that you were seen in the emergency department and we spoke with Ariane. For pain control, you can use the following [id number] medicines (if >12 yo): - Regular strength (325mg/tab) Tylenol (acetaminophen) 2 tabs every 4-6 hours as needed. Do not exceed 12 tablets in a 24 hour period. Avoid taking more than 4 grams (4000 mg) of Tylenol per day. This includes any other sources of acetaminophen you may take on a regular basis. - Regular strength (200 mg/tab) Advil (ibuprofen) 1-2 tabs every 4-6 hours as needed. Do not exceed a dose of 3200 mg per day. You may use a heating pad over the back. Return to the Emergency Department if your current symptoms worsen despite treatment course outlined above, or if you develop any of the following symptoms : intractable pain despite aforementioned treatment course, loss of control of your bowel or bladder, numbness or tingling in your groin, or development of a fever.
[2016-12-21 19:02] LABS: BASO % 0.4 %; BASO ABS # 0.04 K/uL (0-0.2); COMPLETE YES; EOS % 2.3 %; HEMATOCRIT 45.3 % (37-47); IG% 3.1 %; LYMPH % 15.3 %; LYMPH ABS # 1.56 K/uL (1.2-3.4); MEAN CELL VOLUME 91.1 fL (80-100); MEAN CORPUSCULAR HEMOGLOBIN 29.4 pg (25-34); MEAN CORPUSCULAR HGB CONC 32.2 g/dl (32-36); MEAN PLATELET VOLUME 9.1 fL (7.4-10.4); MONO % 7.9 %; PLATELET COUNT 232 K/uL (130-400); RED BLOOD COUNT 4.97 M/uL (4.2-5.4); WHITE BLOOD COUNT 10.22 K/uL (4.8-10.8)
[2016-12-21] MEDS ORDERED: ESTR1DIS TOP (19:10)
[2016-12-21] MEDS ORDERED: PRED20TA PO (19:10)
[2016-12-21] MEDS ORDERED: CZR50 PO (19:10)
[2016-12-21] MEDS ORDERED: MTR800 PO (19:10)
[2016-12-21] MEDS ORDERED: MYCO500T5 PO (19:10)
[2016-12-21] MEDS ORDERED: ALBUAER INH (19:11)
[2016-12-21 19:13] LABS: URINE APPEARANCE CLOUDY (CLEAR); URINE BILIRUBIN NEG (NEG); URINE COLOR YELLOW; URINE EPITHELIAL CELL AUTO >30 /lpf (0-5); URINE NITRITE NEG (NEG); URINE SPECIFIC GRAVITY 1.016 (1.000-1.030); UROBILINOGEN NEG (NEG); ZZUR CULT IF INDIC CLEAN CATCH NO
[2016-12-21 19:16] LABS: BUN/CREATININE RATIO 16.3 (10-20); CALCIUM 8.4 mg/dl (8.5-10.1); CREATININE 0.83 mg/dl (0.60-1.20); POTASSIUM 3.8 mmol/L (3.5-5.1)
[2016-12-21 19:18] LABS: MANUAL MICROSCOPIC REQUIRED? NO; REVIEW REQ? NO
--- NOTE | 2016-12-21 21:04 | DIAGNOSTIC IMAGING REPORT ---
LUMBAR SPINE W/O CONTRAST CLINICAL HISTORY: 51 years-old Female presenting with low back pain, right leg numbness/weakness, urinary incontinence. TECHNIQUE: Multisequence, multiplanar MR imaging of the lumbar spine was performed without the use of intravenous contrast. IV contrast: None. COMPARISON: None. FINDINGS: Localizer images: Unremarkable. Normal lumbar lordosis. Focal endplate concavity along the superior and inferior endplates of L1 likely Schmorl's nodes. Additional endplate irregularity anteriorly along the superior endplate of L3, either Schmorl's node or chronic posttraumatic deformity as no bone marrow edema is noted. The remaining vertebral bodies demonstrate normal height, alignment, bone marrow signal intensity. Intervertebral disc height loss noted at L3-4, where there is a focal large disc extrusion with caudal migration extending 20 mm below the superior endplate of L4. This extruded disc fragment measures 10 x 12 mm in maximal axial dimensions. Resultant right paracentral effacement of the anterior thecal sac at this level does not result in significant spinal canal narrowing. However, the extruded fragment causes significant effacement of the superior portion of the right lateral recess at L4-5 with resultant mass effect on the exiting right L4 nerve root. Additionally, mild bilateral neural foraminal narrowing also noted at L3-4 secondary to disc bulge. Remaining levels are essentially normal without significant neural foraminal or spinal canal narrowing. Spinal cord ends in good position at the inferior endplate of L1. Cauda equina normal. Paraspinal soft tissues normal. No muscular edema. IMPRESSION: Significant disc extrusion at L3-4 as described above. Resultant effacement of the superior portion of the right lateral recess at L4-5. This exerts mass effect on the exiting right L4 nerve root. No impingement of the cauda equina. Electronically signed by: Doron Alvarado M.D. 12/21/2016 9:03 PM Dictated Date/Time: 12/21/2016 8:55 PM
[2016-12-21 21:06] VITALS: PULSE 90; O2SAT 93
[2016-12-21] MEDS ORDERED: PERCOCET HOME PACK PO ONE (21:30)
[2016-12-21] MEDS ORDERED: OXYC-57 PO (21:32)
[2016-12-21 21:49] VITALS: BP 151/105
== END 2016-12-21 21:52 | disposition home or self-care (01) ==
LOC: C.EDB 17:33
DX: M51.26 Other intervertebral disc displacement, lumbar region (principal); M06.9 Rheumatoid arthritis, unspecified; Z82.49 Family history of ischemic heart disease and other diseases of the circulatory system; Z79.899 Other long term (current) drug therapy

== ENCOUNTER → 2017-01-02 | Outpatient (CLI) | payer OTHER ==
[~2017-01-02] MED LIST changes: -ALBU0.5N2 NEB; +CYCL10TA6 PO; +CZR50 PO; +ESTR1DIS TOP; -IBUPROFEN PO; +MTR800 PO; -MYCO500T4 PO; +MYCO500T5 PO; +OXYC-57 PO; +PRED20TA PO
--- NOTE | 2017-01-02 12:32 | DIAGNOSTIC IMAGING REPORT ---
CERVICAL WITHOUT CONTRAST HISTORY: 51 years-old Female CERVICAL MYELOPATHY acute back pain with possible cervical etiology COMPARISON: Lumbar spine MR 12/21/2016 TECHNIQUE: Multiplanar multisequence MRI the cervical spine was obtained without contrast. FINDINGS: Large field of view localizer images demonstrate a 1.9 x 1.5 cm circumscribed T2 hyperintense structure arising from the region of the left parotid gland as seen on image 5 of series 2. There is straightening of the normal cervical lordosis. Mild intervertebral disc space narrowing at C5-C6 and C6-C7 as below. There is no focal bone marrow edema, fracture or marrow replacing process. No malalignment. Imaged posterior fossa structures are unremarkable. Signal within the cord is within normal limits. C2-C3: Mild uncovertebral spurring without central canal or foraminal narrowing. C3-C4: Uncovertebral spurring with broad-based posterior disc bulge flattens the ventral thecal sac. No significant central canal or foraminal narrowing. C4-C5: Uncovertebral spurring with broad-based posterior disc bulge and mild right facet arthropathy. There is flattening of the ventral thecal sac without central canal stenosis. There is mild right foraminal narrowing. Left foramen is patent. C5-C6: Mild intervertebral disc space narrowing with broad-based posterior disc osteophyte complex formation and mild right facet arthrosis. There is mild central canal and mild bilateral foraminal narrowing. C6-C7: Mild intervertebral disc space narrowing with broad-based posterior disc osteophyte complex favoring the right lateral recess and right foramen causing mild central canal, moderate right lateral recess and mild to moderate right foraminal narrowing. Left foramen is generally patent. Mild bilateral facet arthropathy. C7-T1: Uncovertebral spurring with broad-based posterior disc bulge and mild facet arthropathy. Flattening of the ventral thecal sac without significant central canal or foraminal narrowing. Imaged upper thoracic levels are unremarkable. IMPRESSION: 1. Mild intervertebral disc space narrowing with facet arthropathy and discogenic degenerative changes are seen most prominently at C5-C6 and C6-C7 where there is mild central canal stenosis at both of these levels. At C6-C7, there is moderate right lateral recess and mild to moderate right foraminal narrowing. 2. Straightening of the normal cervical lordosis. 3. No fracture or focal bone marrow edema. 4. 1.9 x 1.5 cm circumscribed T2 hyperintense cystic-appearing lesion of the left parotid gland is indeterminate. Further evaluation with ultrasound recommended. The above report was generated using voice recognition software. It may contain grammatical, syntax or spelling errors. Electronically signed by: Kai Ceja M.D. 01/02/2017 12:31 PM Dictated Date/Time: 01/02/2017 12:20 PM
== END | disposition home or self-care (01) ==
LOC: C.MRI 10:57
PROVIDERS: ATTEND Physician Assistant Medical
DX: G95.9 Disease of spinal cord, unspecified (principal); M48.02 Spinal stenosis, cervical region; K11.9 Disease of salivary gland, unspecified

== ENCOUNTER → 2017-01-06 | Outpatient (CLI) | payer OTHER ==
[2017-01-06 18:01] LABS: BASO % 0.5 %; BASO ABS # 0.06 K/uL (0-0.2); EOS % 1.3 %; HEMATOCRIT 47.7 % (37-47); IG% 2.5 %; LYMPH % 6.1 %; LYMPH ABS # 0.79 K/uL (1.2-3.4); MEAN CELL VOLUME 93.2 fL (80-100); MEAN CORPUSCULAR HEMOGLOBIN 29.9 pg (25-34); MEAN PLATELET VOLUME 9.9 fL (7.4-10.4); MONO % 6.4 %; NEUT % 83.2 %; PLATELET COUNT 268 K/uL (130-400); RED BLOOD COUNT 5.12 M/uL (4.2-5.4); WHITE BLOOD COUNT 13.02 K/uL (4.8-10.8)
[2017-01-06 18:48] LABS: COMPLETE YES; MEAN CORPUSCULAR HGB CONC 32.1 g/dl (32-36)
== END | disposition home or self-care (01) ==
LOC: C.LAB 17:28
PROVIDERS: ATTEND Physician Assistant Medical
DX: Z01.818 Encounter for other preprocedural examination (principal)

== ENCOUNTER → 2017-01-27 | Outpatient (CLI) | payer OTHER ==
[~2017-01-27] MED LIST changes: -PRED20TA PO
--- NOTE | 2017-01-27 15:27 | DIAGNOSTIC IMAGING REPORT ---
LEFT LOWER EXTREMITY VENOUS DOPPLER HISTORY: Left leg pain. M79.89 Limb [id number] Limb pain COMPARISON STUDY: None. FINDINGS: There is normal compressibility, flow, and augmentation within the left lower extremity deep venous system. IMPRESSION: No DVT within the left lower extremity. Electronically signed by: Nigel Bernabe M.D. 01/27/2017 3:26 PM Dictated Date/Time: 01/27/2017 3:25 PM
== END | disposition home or self-care (01) ==
LOC: C.ULTR 15:03
PROVIDERS: ATTEND Physician Assistant Medical
DX: M79.609 Pain in unspecified limb (principal); M79.89 Other specified soft tissue disorders

== ENCOUNTER → 2017-04-09 | Outpatient (CLI) | payer OTHER ==
[~2017-04-09] MED LIST changes: -ADVIN25/60 INH; -CYCL10TA6 PO; +LEVO137T3 PO; -LEVO150T9 PO; -OXYC-57 PO
== END | disposition home or self-care (01) ==
LOC: C.LAB1850 10:32
PROVIDERS: ATTEND Physician Assistant Medical
DX: E07.9 Disorder of thyroid, unspecified (principal); E03.9 Hypothyroidism, unspecified

== ENCOUNTER → 2017-04-24 | Outpatient (CLI) | payer OTHER ==
[~2017-04-24] MED LIST changes: +ALBINS/ INH; +CHOL200027; +CYCL10TA6 PO; +DILT120C PO; +FURO40TA3 PO; +LEVO150T9 PO; +OXYC-57 PO
[2017-04-24 13:35] LABS: PTT PATIENT 23.6 SECONDS (21.0-31.0)
[2017-04-24 13:51] LABS: BLOOD UREA NITROGEN 11 mg/dl (7-18); CALCIUM 8.5 mg/dl (8.5-10.1); CARBON DIOXIDE 30 mmol/L (21-32); CREATININE 0.67 mg/dl (0.60-1.20); GLUCOSE 99 mg/dl (70-99); POTASSIUM 3.4 mmol/L (3.5-5.1); SODIUM 138 mmol/L (136-145)
== END | disposition home or self-care (01) ==
LOC: C.LAB1850 11:56
PROVIDERS: ATTEND Internal Medicine Interventional Cardiology
DX: Z01.812 Encounter for preprocedural laboratory examination (principal)

== ENCOUNTER → 2017-04-27 | Day surgery (SDC) | payer OTHER ==
[~2017-04-27] VITALS: Ht 161.3 cm; Wt 127.0 kg
[2017-04-27 07:10] VITALS: BP 164/98; PULSE 92; TEMP 36.6; O2SAT 98; Ht 161.3 cm; Wt 127.0 kg
--- NOTE | 2017-04-27 09:37 | Pre Sedation Assessment ---
Pre Sedation Assessment General Date of Sedation: Apr 27, 2017. Vital Signs Past 12 Hours Date Time Temp Pulse Resp B/P (MAP) Pulse Ox O2 Delivery O2 Flow Rate FiO2 04/27/17 07:10 36.6 92 20 164/98 (120) 98 Nasal Cannula 2 Review Cardiovascular: regular rate, rhythm, no edema Lungs: chest non-tender, lungs clear Pre-Sedation Airway Assessment Smoking Status: Never Smoker Hx of Sleep Apnea: Yes Hx of difficult intubation: No Short Thick Neck: No Thyro-mental Distance: > 3 Finger Breadths Oral Cavity: WNL Mallampati Classification: Class III NPO Status Date of Last Intake of Fluids: Apr 26, 2017 Time of Last Intake of Fluids: 2200 Date of Last Intake of Solids: Apr 26, 2017 Time of Last Intake of Solids: 1800 Procedure Planning Contraindications for Sedation: None Current Medications Reviewed: Yes Notes The planned sedation has been discussed with the patient. Informed Consent was obtained. I have identified the patient, determined the appropriateness of sedation and have assessed the patient immediately prior to the procedure. All medicine(s) and interventions are by my order.
--- NOTE | 2017-04-27 09:37 | History & Physical Bridge Note ---
H&P Re-Evaluation Bridge Note: I have examined the patient, reviewed the History & Physical and in the interval since the performance of the History & Physical I have noted the following changes of clinical significance: No changes noted
--- NOTE | 2017-04-27 10:52 | Post Sedation Assessment ---
Post Sedation Assessment General Date of Sedation Apr 27, 2017. Vital Signs: Vital Signs Past 12 Hours Date Time Temp Pulse Resp B/P (MAP) Pulse Ox O2 Delivery O2 Flow Rate FiO2 04/27/17 07:10 36.6 92 20 164/98 (120) 98 Nasal Cannula 2 Post Procedure Recovery Score Activity: (2) Moves 4 extremities * Respiration: (2) Deep breath/cough Circulation: (2) +/-20% PreAnes Value Consciousness: (2) Fully Awake Discharge Sedation Level of Care: Fast Track Phase II Post Sedation Plan On clinical assessment, the patient appears to have tolerated the sedation without complications. Patient is recovering as anticipated. Patient will continue to be monitored by nursing and may be discharged when sedation discharge criteria are met per below protocol. Upon Completions of procedure and additional 15 minutes continue every 5 minute vital signs and the P.A.R. score; then discharge to a Phase I or Fast Track to Phase II per the following guidelines: * Discharge Patient to appropriate Phase II area if PAR is 8 or greater or return to pre- procedure baseline. The post - procedure orders will be as directed. * If PAR score is less than 8 or not return to pre-procedure baseline then patient will follow Phase I monitoring till PAR is reached for Phase II. The Phase I may be done in procedure room or may call to secure a Phase I area. * If naloxone or flumazenil are used for reversal, hold in Phase I for an additional 60 -120 minutes before discharge to Phase II. Please call the Sedation Physician to re-evaluate and complete post-note for discharge to Phase II area. Do NOT discharge from procedure sedation or Phase 1 until post- sedation evaluation note is complete by procedure /sedation MD Sedation Discharge Instructions to be given to the patient at discharge to home.
--- NOTE | 2017-04-27 11:12 | Cardiac Catheterization ---
Procedure Note Procedure Date Apr 27, 2017. Pre-Procedure Diagnosis Cardiothoracic Symptom AUC Score 7 Post-Procedure Diagnosis Elevated Intracardiac Pressures Procedure(s) Performed Right Heart Cath, Ultrasound Guided Vascular Access Senior Environmental Practice Leader [employer] Customer Service Professional(s) Arias Estimated Blood Loss 10 Medication(s) Lidocaine 1% Summary of Findings -- RIGHT HEART CATHETERIZATION -- Multiple attempts made to access antecubital/right upper extremity veins with ultrasound guidance but unable to pass wires. Converted to Right internal jugular access via ultrasound guidance 6Fr slender sheath 6Fr swan navigated to pulmonary artery under fluoroscopic guidance. RA 10 RV 38/10 PA 38/20 (26) PCW 20 AoSat -- 100% on 2L (pulse-ox) PaSat 70% RVSat 70% RASat 70.5% IVC 76% SVC 71% Neva CO/CI 4.9/2.2 Thermo CO/CI 6.1/2.7 Qp/Qs: 0.93 SUMMARY: 1. Elevated right and left sided filling pressures. 2. Borderline pulmonary hypertension. 3. Preserved cardiac output 4. No evidence of significant left to right shunt. Recommendations: Follow-up with Dr. Rowley as scheduled. Consider addition of low dose diuretics, improved BP control Hemodynamics Rest Ao: -- Final Ao: -- LV: -- Recommendations Medical therapy and/or Counseling Specimens None Radiation Exposure (mGy) 262 Contrast (mls) NONE Fluids (cc crystalloids) 35 Drains none Anesthesia local Procedural Complication(s) None Disposition Furnace Charger Holding/Recovery ACC Data Cardiac Status Clinical evaluation leading to the procedure CAD Presntation: Sx unlikely to be ischemic Closure Device Percutaneous Entry Location: right internal jugular Closure Device: none - manual hold Intraprocedure Events Significant Dissection: No Perforation: No
--- NOTE | 2017-04-27 11:17 | Discharge Instructions ---
Discharge Instructions Procedure Procedure Date: Apr 27, 2017. Reason for Visit: Dependence Of Supplemental Oxygen. Discharge Discharge Date: Apr 27, 2017. Discharge Diagnosis: Interstitial lung disease Last Recorded Wt (Kilograms): 127 Anesthesia Post Anesthesia Instructions: If you have had General Anesthesia or IV Sedation: * Do not drive today. * Resume driving when surgeon permits. * Do not make important decisions or sign legal documents today. * Call surgeon for: 1. Temperature elevations greater than 101 degrees F. 2. Uncontrollable pain. 3. Excessive bleeding. 4. Persistent nausea and vomiting. 5. Medication intolerance (nausea, vomiting or rash). * For nausea and vomiting use only clear liquids such as: tea, soda, bouillon until nausea subsides, then gradually increase diet as tolerated. * If you have any concerns or questions, call your surgeon's office. If physician is unavailable and it is an emergency, call 911 or go to the nearest emergency room. Instructions Activity Recommendations: resume regular activity Recommended Home Diet: low sodium, low cholesterol Allergies: Coded Allergies: Penicillins (Verified Allergy, Unknown, HAS TAKEN KEFLEX BEFORE W/O RXN, 12/30/16) Follow Up Additional Instructions: ACTIVITY RECOMMENDATIONS: It is common to feel weak and fatigue for a few days. * Do not engage in vigorous exercise or any sports for the next five days. * You may shower the day after your procedure, but do not immerse the area for three days. Cleanse the site gently with soap and water. SPECIAL CARE INSTRUCTIONS: * You may replace the pressure dressing or band-aid the morning after the procedure. * After your procedure, it is normal to have a small bruise or small lump at the site. Examine your site daily for any change in the bruise or lump, redness, swelling, drainage or numbness. Notify your doctor if any change. BLEEDING: * If there is a small amount of bleeding at the site, lie down and apply firm pressure with a clean cloth for ten minutes. When the bleeding stops, lie quietly keeping the procedure limb straight for six hours. Notify your doctor as soon as possible. * If the bleeding does not stop after ten minutes or if there is a large amount of bleeding or spurting, call 911 immediately. Continue to lie down and hold firm pressure until help arrives. SKIN IRRITATION: * You may experience some redness and/or swelling in the area where radiation was administered. If any skin irritation occurs, please contact your family physician. FOLLOW UP VISIT: Keep any scheduled doctor appointments. Follow-up with: As scheduled with Dr. Amrik Hackett Recommendations: Call your doctor if: * Temperature above 101 degrees * Pain not relieved by pain medicine ordered * There is increased drainage or redness from any incision * You have any unanswered questions or concerns. Your Doctors Instructions noted above were prepared by provider Wili Astudillo. Patient Signature Section: Patient Instructions Signature Page Ashtyn Simpson Patient (or Guardian) Signature/Date: I have read and understand the instructions given to me by my caregivers. Caregiver/RN/Doctor Signature/Date: The above-named patient and/or guardian has received patient instructions on this date. + Original Patient Signature Page (only) stays with chart. Please make copy for patient.
[2017-04-27 11:45] VITALS: BP 150/95; PULSE 81; O2SAT 95
== END | disposition home or self-care (01) ==
LOC: C.CATH 08:46
PROVIDERS: ATTEND Internal Medicine Interventional Cardiology
DX: R09.02 Hypoxemia (principal); J84.10 Pulmonary fibrosis, unspecified; Z99.81 Dependence on supplemental oxygen; I10 Essential (primary) hypertension; G47.33 Obstructive sleep apnea (adult) (pediatric); M06.9 Rheumatoid arthritis, unspecified; J45.909 Unspecified asthma, uncomplicated; K21.9 Gastro-esophageal reflux disease without esophagitis; E03.9 Hypothyroidism, unspecified; M51.9 Unspecified thoracic, thoracolumbar and lumbosacral intervertebral disc disorder; E55.9 Vitamin D deficiency, unspecified; F32.9 Major depressive disorder, single episode, unspecified; Z90.710 Acquired absence of both cervix and uterus; Z82.49 Family history of ischemic heart disease and other diseases of the circulatory system

== ENCOUNTER → 2017-04-30 | Outpatient (CLI) | payer OTHER ==
[~2017-04-30] MED LIST changes: -ALBUAER INH; -LEVO137T3 PO
[2017-04-30 15:13] LABS: BLOOD UREA NITROGEN 11 mg/dl (7-18); CALCIUM 8.9 mg/dl (8.5-10.1); CARBON DIOXIDE 31 mmol/L (21-32); CREATININE 0.81 mg/dl (0.60-1.20); GLUCOSE 118 mg/dl (70-99); POTASSIUM 3.3 mmol/L (3.5-5.1); SODIUM 139 mmol/L (136-145)
== END | disposition home or self-care (01) ==
LOC: C.LAB1850 13:52
PROVIDERS: ATTEND Physician Assistant
DX: I10 Essential (primary) hypertension (principal)

== ENCOUNTER → 2017-05-12 | Outpatient (CLI) | payer OTHER ==
[~2017-05-12] MED LIST changes: +POTA75TA2
[2017-05-12 14:13] LABS: BASO % 0.8 %; BASO ABS # 0.09 K/uL (0-0.2); EOS % 4.8 %; EOS ABS # 0.51 K/uL (0-0.5); HEMATOCRIT 41.5 % (37-47); HEMOGLOBIN 13.5 g/dL (12.0-16.0); IG# 0.05 K/uL (0.00-0.02); LYMPH ABS # 1.07 K/uL (1.2-3.4); MEAN CELL VOLUME 93.7 fL (80-100); MEAN CORPUSCULAR HEMOGLOBIN 30.5 pg (25-34); MEAN PLATELET VOLUME 9.8 fL (7.4-10.4); MONO % 5.6 %; NEUT % 78.3 %; NEUT ABS # 8.38 K/uL (1.4-6.5); PLATELET COUNT 282 K/uL (130-400); RED CELL DISTRIBUTION WIDTH CV 14.5 % (11.5-14.5); RED CELL DISTRIBUTION WIDTH SD 49.7 fL (36.4-46.3)
[2017-05-12 14:15] LABS: MEAN CORPUSCULAR HGB CONC 32.5 g/dl (32-36)
== END | disposition home or self-care (01) ==
LOC: C.LAB1850 13:41
PROVIDERS: ATTEND Physician Assistant Medical
DX: Z01.812 Encounter for preprocedural laboratory examination (principal)

== ENCOUNTER → 2017-05-14 | Outpatient (CLI) | payer OTHER ==
[2017-05-14 15:31] LABS: BASO % 0.1 %; BASO ABS # 0.01 K/uL (0-0.2); HEMATOCRIT 40.8 % (37-47); HEMOGLOBIN 13.4 g/dL (12.0-16.0); IG# 0.04 K/uL (0.00-0.02); LYMPH % 5.3 %; LYMPH ABS # 0.77 K/uL (1.2-3.4); MEAN CELL VOLUME 92.3 fL (80-100); MEAN CORPUSCULAR HEMOGLOBIN 30.3 pg (25-34); MEAN CORPUSCULAR HGB CONC 32.8 g/dl (32-36); MONO ABS # 0.44 K/uL (0.11-0.59); NEUT % 91.3 %; NEUT ABS # 13.28 K/uL (1.4-6.5); PLATELET COUNT 329 K/uL (130-400); RED CELL DISTRIBUTION WIDTH CV 14.1 % (11.5-14.5); WHITE BLOOD COUNT 14.54 K/uL (4.8-10.8)
[2017-05-14 15:41] LABS: ALBUMIN 3.4 gm/dl (3.4-5.0); ALT/SGPT 28 U/L (12-78); CREATININE 0.72 mg/dl (0.60-1.20)
[2017-05-14 15:44] LABS: ALKALINE PHOSPHATASE 88 U/L (45-117); AST/SGOT 18 U/L (15-37); TOTAL PROTEIN 8.5 gm/dl (6.4-8.2)
== END | disposition home or self-care (01) ==
LOC: C.LAB1850 14:21
PROVIDERS: ATTEND Internal Medicine Rheumatology
DX: M05.9 Rheumatoid arthritis with rheumatoid factor, unspecified (principal); Z79.899 Other long term (current) drug therapy; J42 Unspecified chronic bronchitis

== ENCOUNTER → 2017-05-22 | Outpatient (CLI) | payer OTHER ==
[2017-05-22 15:09] LABS: BLOOD UREA NITROGEN 14 mg/dl (7-18); CALCIUM 8.5 mg/dl (8.5-10.1); CARBON DIOXIDE 31 mmol/L (21-32); CREATININE 0.78 mg/dl (0.60-1.20); GLUCOSE 97 mg/dl (70-99); POTASSIUM 3.7 mmol/L (3.5-5.1); SODIUM 137 mmol/L (136-145)
== END | disposition home or self-care (01) ==
LOC: C.LAB1850 13:57
PROVIDERS: ATTEND Physician Assistant
DX: E03.9 Hypothyroidism, unspecified (principal); I50.32 Chronic diastolic (congestive) heart failure

== ENCOUNTER → 2017-05-29 | Outpatient (CLI) | payer OTHER ==
[~2017-05-29] MED LIST changes: +DILT-213 PO; -DILT120C PO; +FRS/40 PO; -FURO40TA3 PO; +FURO80TA63 PO
[2017-05-29 17:42] LABS: BLOOD UREA NITROGEN 15 mg/dl (7-18); CALCIUM 9.1 mg/dl (8.5-10.1); CARBON DIOXIDE 30 mmol/L (21-32); CREATININE 0.98 mg/dl (0.60-1.20); GLUCOSE 109 mg/dl (70-99); POTASSIUM 3.9 mmol/L (3.5-5.1); SODIUM 137 mmol/L (136-145)
== END | disposition home or self-care (01) ==
LOC: C.LAB1850 13:15
PROVIDERS: ATTEND Physician Assistant
DX: I50.32 Chronic diastolic (congestive) heart failure (principal)

== ENCOUNTER → 2017-06-05 | Outpatient (CLI) | payer OTHER ==
--- NOTE | 2017-06-08 12:43 | MAMMOGRAPHY REPORT ---
BILATERAL DIGITAL DIAGNOSTIC MAMMOGRAM TOMOSYNTHESIS WITH CAD: 06/05/2017 CLINICAL HISTORY: 12 month follow-up of left breast focal asymmetry. Due for routine mammography of the right breast. The patient reports no palpable lumps or other complaints. TECHNIQUE: Breast tomosynthesis in addition to standard 2D mammography was performed. Current study was also evaluated with a Computer Aided Detection (CAD) system. Bilateral CC and MLO 2D and tomosyn thesis images were obtained. COMPARISON: Comparison is made to exams dated: 06/02/2016 mammogram, 12/03/2015 mammogram, 04/26/2015 u ltrasound, 04/26/2015 mammogram, and 04/18/2015 mammogram - [facility]. BREAST COMPOSITION: There are scattered areas of fibroglandular density in both breasts. FINDINGS: The 7 mm asymmetry seen within the left lateral posterior breast is stable mammographically dating back to the April 2015 exam, and is considered benign given long-term stability. The ryan lalit of both breasts are stable compared to prior exams, without suspicious masses, calcifications, or areas of architectural distortion noted. IMPRESSION: ACR BI-RADS CATEGORY 2: BENIGN The left breast asymmetry is stable dating back to at least the fibro2015 exam, and is considered benign given long-term stability. There is no mammographic evidence of malignancy in either breast. A 1 year screening mammogram is recommended. The patient has been verbally notified of the results. Approximately 10% of breast cancers are not detected with mammography. A negative mammographic report should not delay biopsy if a clinically suggestive mass is present. Kadie Golden M.D. /:06/05/2017 11:41:40 Medical Referral Coordinator: Ann Mckay, [facility] letter sent: Normal 1/2 BI-RADS Code: ACR BI-RADS Category 2: Benign
== END | disposition home or self-care (01) ==
LOC: C.MAMM 11:04
PROVIDERS: ATTEND Obstetrics & Gynecology
DX: N64.89 Other specified disorders of breast (principal)

== ENCOUNTER → 2017-06-19 | Outpatient (CLI) | payer OTHER ==
[2017-06-19 15:18] LABS: BLOOD UREA NITROGEN 13 mg/dl (7-18); CALCIUM 8.8 mg/dl (8.5-10.1); CARBON DIOXIDE 32 mmol/L (21-32); CREATININE 0.73 mg/dl (0.60-1.20); GLUCOSE 83 mg/dl (70-99); POTASSIUM 3.3 mmol/L (3.5-5.1); SODIUM 138 mmol/L (136-145)
== END | disposition home or self-care (01) ==
LOC: C.LAB1850 13:08
PROVIDERS: ATTEND Physician Assistant
DX: I50.32 Chronic diastolic (congestive) heart failure (principal)

== ENCOUNTER → 2017-06-22 | Outpatient (CLI) | payer OTHER ==
[2017-06-22 12:23] LABS: BASO % 0.7 %; BASO ABS # 0.07 K/uL (0-0.2); EOS % 3.3 %; EOS ABS # 0.32 K/uL (0-0.5); HEMATOCRIT 40.3 % (37-47); HEMOGLOBIN 12.9 g/dL (12.0-16.0); IG# 0.08 K/uL (0.00-0.02); LYMPH % 18.6 %; LYMPH ABS # 1.78 K/uL (1.2-3.4); MEAN CELL VOLUME 93.9 fL (80-100); MEAN CORPUSCULAR HEMOGLOBIN 30.1 pg (25-34); MEAN PLATELET VOLUME 9.5 fL (7.4-10.4); MONO % 5.5 %; MONO ABS # 0.53 K/uL (0.11-0.59); NEUT % 71.1 %; NEUT ABS # 6.79 K/uL (1.4-6.5); PLATELET COUNT 316 K/uL (130-400); RED CELL DISTRIBUTION WIDTH CV 15.5 % (11.5-14.5); RED CELL DISTRIBUTION WIDTH SD 53.3 fL (36.4-46.3); WHITE BLOOD COUNT 9.57 K/uL (4.8-10.8)
[2017-06-22 12:32] LABS: ALBUMIN 3.1 gm/dl (3.4-5.0); ALT/SGPT 20 U/L (12-78); AST/SGOT 13 U/L (15-37)
[2017-06-22 12:35] LABS: ALKALINE PHOSPHATASE 85 U/L (45-117)
== END | disposition home or self-care (01) ==
LOC: C.LAB1850 10:00
PROVIDERS: ATTEND Internal Medicine Rheumatology
DX: Z51.81 Encounter for therapeutic drug level monitoring (principal)

== ENCOUNTER → 2017-07-15 | Outpatient (CLI) | payer OTHER ==
[~2017-07-15] MED LIST changes: +ALBUAER INH; +LORA-741 PO; +POTA10PO PO; +SPIR25TA PO
[2017-07-15 12:13] LABS: HEMOGLOBIN 12.5 g/dL (12.0-16.0); MEAN CELL VOLUME 94.4 fL (80-100); MEAN CORPUSCULAR HEMOGLOBIN 30.3 pg (25-34); MEAN CORPUSCULAR HGB CONC 32.1 g/dl (32-36); MEAN PLATELET VOLUME 9.6 fL (7.4-10.4); PLATELET COUNT 320 K/uL (130-400); RED CELL DISTRIBUTION WIDTH CV 16.2 % (11.5-14.5); RED CELL DISTRIBUTION WIDTH SD 56.3 fL (36.4-46.3); WHITE BLOOD COUNT 8.75 K/uL (4.8-10.8)
[2017-07-15 12:17] LABS: BLOOD UREA NITROGEN 16 mg/dl (7-18); CALCIUM 8.6 mg/dl (8.5-10.1); CARBON DIOXIDE 29 mmol/L (21-32); CREATININE 1.01 mg/dl (0.60-1.20); GLUCOSE 90 mg/dl (70-99); POTASSIUM 4.5 mmol/L (3.5-5.1); SODIUM 137 mmol/L (136-145)
[2017-07-15 12:19] LABS: PTT PATIENT 23.6 SECONDS (21.0-31.0)
== END | disposition home or self-care (01) ==
LOC: C.LAB1850 10:16
PROVIDERS: ATTEND Internal Medicine Interventional Cardiology
DX: Z01.818 Encounter for other preprocedural examination (principal); I50.32 Chronic diastolic (congestive) heart failure

== ENCOUNTER → 2017-07-16 | Day surgery (SDC) | payer OTHER ==
[~2017-07-16] VITALS: Ht 160 cm; Wt 122.5 kg
[~2017-07-16] MED LIST changes: +ASPIRIN 81 MG CHEW ONE; +FENTANYL CITRATE INJ 50 MCG/1 ML 2 ML VIAL ONE; +HEPARIN SOD (PORCINE) 1000 UNIT/ML 10 ML VIAL ONE; +LIDOCAINE HCL 1% 20 ML VIAL ONE; +MIDAZOLAM HCL 1 MG/ML 2ML VIAL ONE; +NITROGLYCERIN/D5W 100MCG/ML 20ML SYR ONE; +NiCARDipine HCL INJ 2.5 MG/ML 10 ML AMP ONE
[2017-07-16 08:47] VITALS: BP 125/71; PULSE 105; TEMP 36.7; O2SAT 97; Ht 160 cm; Wt 122.5 kg
--- NOTE | 2017-07-16 09:21 | Pre Sedation Assessment ---
Pre Sedation Assessment General Date of Sedation: July 16, 2017. Vital Signs Past 12 Hours Date Time Temp Pulse Resp B/P (MAP) Pulse Ox O2 Delivery O2 Flow Rate FiO2 07/16/17 08:47 36.7 105 16 125/71 (89) 97 Nasal Cannula 2 Review Cardiovascular: regular rate, rhythm, no edema Lungs: chest non-tender, lungs clear Pre-Sedation Airway Assessment Smoking Status: Never Smoker Hx of Sleep Apnea: No Hx of difficult intubation: No Short Thick Neck: No Oral Cavity: WNL Mallampati Classification: Class III ASA Classification: Class II Procedure Planning Contraindications for Sedation: None Current Medications Reviewed: Yes Notes The planned sedation has been discussed with the patient. Informed Consent was obtained. I have identified the patient, determined the appropriateness of sedation and have assessed the patient immediately prior to the procedure. All medicine(s) and interventions are by my order.
--- NOTE | 2017-07-16 10:17 | Post Sedation Assessment ---
Post Sedation Assessment General Date of Sedation July 16, 2017. Vital Signs: Vital Signs Past 12 Hours Date Time Temp Pulse Resp B/P (MAP) Pulse Ox O2 Delivery O2 Flow Rate FiO2 07/16/17 08:47 36.7 105 16 125/71 (89) 97 Nasal Cannula 2 Post Procedure Recovery Score Activity: (2) Moves 4 extremities * Respiration: (2) Deep breath/cough Circulation: (2) +/-20% PreAnes Value Consciousness: (2) Fully Awake Oxygen Saturation: (1) O2 needed for >90% Discharge Sedation Level of Care: Fast Track Phase II Post Sedation Plan On clinical assessment, the patient appears to have tolerated the sedation without complications. Patient is recovering as anticipated. Patient will continue to be monitored by nursing and may be discharged when sedation discharge criteria are met per below protocol. Upon Completions of procedure and additional 15 minutes continue every 5 minute vital signs and the P.A.R. score; then discharge to a Phase I or Fast Track to Phase II per the following guidelines: * Discharge Patient to appropriate Phase II area if PAR is 8 or greater or return to pre- procedure baseline. The post - procedure orders will be as directed. * If PAR score is less than 8 or not return to pre-procedure baseline then patient will follow Phase I monitoring till PAR is reached for Phase II. The Phase I may be done in procedure room or may call to secure a Phase I area. * If naloxone or flumazenil are used for reversal, hold in Phase I for an additional 60 -120 minutes before discharge to Phase II. Please call the Sedation Physician to re-evaluate and complete post-note for discharge to Phase II area. Do NOT discharge from procedure sedation or Phase 1 until post- sedation evaluation note is complete by procedure /sedation MD Sedation Discharge Instructions to be given to the patient at discharge to home.
--- NOTE | 2017-07-16 10:26 | Discharge Instructions ---
Discharge Instructions Procedure Procedure Date: July 16, 2017. Reason for Visit: R/L, Chronic Distalic Kip Heart Fail Dr Astudillo. Discharge Discharge Date: July 16, 2017. Discharge Diagnosis: Well compensated chronic diastolic heart failure Last Recorded Wt (Kilograms): 122.5 Anesthesia Post Anesthesia Instructions: If you have had General Anesthesia or IV Sedation: * Do not drive today. * Resume driving when surgeon permits. * Do not make important decisions or sign legal documents today. * Call surgeon for: 1. Temperature elevations greater than 101 degrees F. 2. Uncontrollable pain. 3. Excessive bleeding. 4. Persistent nausea and vomiting. 5. Medication intolerance (nausea, vomiting or rash). * For nausea and vomiting use only clear liquids such as: tea, soda, bouillon until nausea subsides, then gradually increase diet as tolerated. * If you have any concerns or questions, call your surgeon's office. If physician is unavailable and it is an emergency, call 911 or go to the nearest emergency room. Instructions Activity Recommendations: limitations as noted below Recommended Home Diet: low sodium, low cholesterol Allergies: Coded Allergies: Penicillins (Verified Allergy, Unknown, HAS TAKEN KEFLEX BEFORE W/O RXN, 12/30/16) Follow Up Additional Instructions: ACTIVITY RECOMMENDATIONS: Excess manipulation of the wrist should be avoided for the next 24-48 hours. * No lifting over 2 pounds (approximately a 1/2 gallon of milk) with the utilized arm for 24 hours. * No strenuous activity such as bowling or tennis for 3 days. * Keep the site of the procedure covered with a bandage for 24 hours. *You may shower the day after the procedure. Do not take a tub bath or submerge the puncture site in water for the next 3 days. *Do not operate any motorized equipment for 3 days. SPECIAL CARE INSTRUCTIONS: The site may be slightly bruised and sore following your procedure. Should any of the following occur, contact the Dr. who performed your procedure. 1. Redness/inflammation, swelling, chills, or fever, or colored drainage at procedure site within 3-7 days after your procedure. 2. Coldness, discoloration, ongoing numbness, severe pain, or swelling. Expect mild tingling of hand and tenderness at the puncture site for up to three days. If this persists beyond three days, or other symptoms develop, notify the DrMarcell who performed your procedure. BLEEDING: If the procedure site on your wrist begins to bleed, do not panic 1. Place 1 or 2 fingers firmly just slightly above the insertion site to stop the bleeding. You may be able to feel your pulse as you hold pressure. 2. Lift your finger after 5 minutes to see if the bleeding has stopped. 3. Once the bleeding has stopped, gently wipe the wrist area clean with a bandage. * If the bleeding from your wrist does not stop after 10 minutes, or if there is a large amount of bleeding or spurting, call 911 (do not drive yourself to the hospital). SKIN IRRITATION: * You may experience some redness and/or swelling in the area where radiation was administered. If any skin irritation occurs, please contact your family physician. FOLLOW UP VISIT: Keep any scheduled doctor appointments. Follow-up with: As scheduled. Sincere Hackett Recommendations: Call your doctor if: * Temperature above 101 degrees * Pain not relieved by pain medicine ordered * There is increased drainage or redness from any incision * You have any unanswered questions or concerns. Your Doctors Instructions noted above were prepared by provider Wili Astudillo. Patient Signature Section: Patient Instructions Signature Page Ashtyn Simpson Patient (or Guardian) Signature/Date: I have read and understand the instructions given to me by my caregivers. Caregiver/RN/Doctor Signature/Date: The above-named patient and/or guardian has received patient instructions on this date. + Original Patient Signature Page (only) stays with chart. Please make copy for patient.
--- NOTE | 2017-07-16 10:36 | Cardiac Catheterization ---
Procedure Note Procedure Date July 16, 2017. Pre-Procedure Diagnosis Cardiomyopathy, Cardiothoracic Symptom AUC Score 7 Post-Procedure Diagnosis Normal Coronary Arteries, Elevated Intracardiac Pressures Procedure(s) Performed Coronary Angiography, Left Heart Cath, Right Heart Cath, Ultrasound Guided Vascular Access Alternative Medicine Practitioner Baudilio Blood Bank Attendant(s) Audrey Estimated Blood Loss 10 Medication(s) Fentanyl, Heparin, Nitroglycerin, Versed, Lidocaine 1% Summary of Findings Indication: Exertional dyspnea, hypoxemia; evaluate prior pulmonary hypertension and volume status Access: 6 FR right internal jugular vein via ultrasound guidance; 6 FR right radial artery Catheters: Clifton; 6 FR swan Findings: LM - angiographically normal LAD - angiographically normal Circumflex - angiographically normal RCA - angiographically normal RA 7 RV 44/10 PA 39/16 (27) PAWP 9 LVEDP 9 PaSat 62% AoSat 89% on RA Neva CO/CI 5.8/2.6 Thermo CO/CI 7.4/3.4 TPG 18 PVR 2.4 wood unit Arterial Closure: TR band Summary: 1. Angiographically normal coronary arteries 2. Preserved cardiac output 3. Normal left-sided filling pressures. Mildly elevated right-sided filling pressures. 4. Borderline pulmonary hypertension (pre-capillary) Recommendations: Patient well compensated on current diuretics. At current volume status would not expect diastolic heart failure to be principal cause of patient's exertional dyspnea/hypoxemia Continue current diuretics as scheduled. Continue therapy for obstructive sleep apnea and follow-up with pulmonary Continue pulmonary rehab Continued ASCVD risk factor modification Hemodynamics Rest Ao: 127/74/98 Final Ao: 128/80 LV: 116/12 Recommendations Medical therapy and/or Counseling Specimens None Radiation Exposure (mGy) 983 Contrast (mls) 30 Fluids (cc crystalloids) 44 Drains None Anesthesia Moderate Procedural Complication(s) None Disposition Marketing Sales Manager Holding/Recovery [facility] Data Cardiac Status Clinical evaluation leading to the procedure CAD Presntation: Sx unlikely to be ischemic Anginal Classification: CCS II Heart Failure: Yes, NYHA Class: CCS III Cardiogenic Shock w/in 24Hrs: No Cardiac Arrest w/in 24Hrs: No Imaging studies past 6 months: Yes Stress studies past 6 months: Yes Stress Echocardiogram: Yes - Negative Closure Device Percutaneous Entry Location: Radial Closure Device: Mynx Recommendations: Medical therapy and/or Counseling Intraprocedure Events Significant Dissection: No Perforation: No
[2017-07-16 12:30] VITALS: BP 110/62; PULSE 92; O2SAT 96
== END | disposition home or self-care (01) ==
LOC: C.CATH 08:33
PROVIDERS: ATTEND Internal Medicine Interventional Cardiology
DX: I50.32 Chronic diastolic (congestive) heart failure (principal); I10 Essential (primary) hypertension; J31.0 Chronic rhinitis; J84.9 Interstitial pulmonary disease, unspecified; M06.9 Rheumatoid arthritis, unspecified; K21.9 Gastro-esophageal reflux disease without esophagitis; E03.9 Hypothyroidism, unspecified; F32.9 Major depressive disorder, single episode, unspecified; G47.33 Obstructive sleep apnea (adult) (pediatric); J45.909 Unspecified asthma, uncomplicated; E55.9 Vitamin D deficiency, unspecified; M85.80 Other specified disorders of bone density and structure, unspecified site; Z90.710 Acquired absence of both cervix and uterus; Z90.89 Acquired absence of other organs; Z82.49 Family history of ischemic heart disease and other diseases of the circulatory system; Z82.3 Family history of stroke; Z82.5 Family history of asthma and other chronic lower respiratory diseases; Z82.61 Family history of arthritis; Z88.0 Allergy status to penicillin

== ENCOUNTER → 2017-10-20 | Outpatient (CLI) | payer OTHER ==
[~2017-10-20] MED LIST changes: -ASPIRIN 81 MG CHEW ONE; -FENTANYL CITRATE INJ 50 MCG/1 ML 2 ML VIAL ONE; -HEPARIN SOD (PORCINE) 1000 UNIT/ML 10 ML VIAL ONE; -LIDOCAINE HCL 1% 20 ML VIAL ONE; -MIDAZOLAM HCL 1 MG/ML 2ML VIAL ONE; -NITROGLYCERIN/D5W 100MCG/ML 20ML SYR ONE; -NiCARDipine HCL INJ 2.5 MG/ML 10 ML AMP ONE; -POTA75TA2
[2017-10-20 14:03] LABS: BLOOD UREA NITROGEN 31 mg/dl (7-18); CALCIUM 9.2 mg/dl (8.5-10.1); CARBON DIOXIDE 28 mmol/L (21-32); CREATININE 2.04 mg/dl (0.60-1.20); GLUCOSE 97 mg/dl (70-99); POTASSIUM 3.9 mmol/L (3.5-5.1); SODIUM 135 mmol/L (136-145)
== END | disposition home or self-care (01) ==
LOC: C.LAB1850 12:15
PROVIDERS: ATTEND Physician Assistant
DX: I50.32 Chronic diastolic (congestive) heart failure (principal)

== ENCOUNTER → 2017-11-05 | Outpatient (CLI) | payer OTHER ==
[2017-11-05 13:44] LABS: BLOOD UREA NITROGEN 34 mg/dl (7-18); CALCIUM 9.2 mg/dl (8.5-10.1); CARBON DIOXIDE 24 mmol/L (21-32); CHOLESTEROL 209 mg/dl (0-200); CREATININE 1.77 mg/dl (0.60-1.20); GLUCOSE 76 mg/dl (70-99); LDL CHOLESTEROL CALCULATED 133 mg/dl; POTASSIUM 3.9 mmol/L (3.5-5.1); SODIUM 137 mmol/L (136-145)
== END | disposition home or self-care (01) ==
LOC: C.LABBFT 10:23
PROVIDERS: ATTEND Physician Assistant
DX: E03.9 Hypothyroidism, unspecified (principal); I50.32 Chronic diastolic (congestive) heart failure; E55.9 Vitamin D deficiency, unspecified

== ENCOUNTER 2020-04-16 05:35 | Observation (INO) ==
--- NOTE | 2020-04-11 12:02 | Anesthesiology Consultation ---
Date of Service April 11, 2020 Assessment & Plan (1) Encounter for pre-operative examination: - Per assessment on 04/05: Travel screen negative. No known COVID-19 positive contacts or current COVID-19 related symptoms. Surgeon arranged preop COVID jimmy ting (done 04/[address])- results pending. - Cardiology office visit: 04/03/20: "Longstanding dyspnea on exertion unchanged. Stable NYHA class II-III equivalent symptoms. Lower extremity edema, weight stable on current maintenance Lasix/spironolactone. Well-perfused without significant congestion on exam today. We have discussed before that do not feel her symptoms are primarily due to to chronic diastolic heart failure (previously normal LV filling pressures on right heart cath, BNP of 43).. No changes made to current diuretics. Continue current diltiazem." Advised to continue following with pulmonary. F/U recommended in 6 months. - Pulmonary fibrosis: patient states longstanding pulmonary issues for which she previously followed with [facility] (Dr. Landin). Last pulmonary office visit was telemedicine visit Spring 2019 in which patient states she was stable with no acute issues. Has not had recent chest imaging. Contacted patient to discuss current pulmonary/functional status (04/11)- patient states that that her breathing is at baseline with no acute complaints/issues. She is able to complete daily activities/walking but does have chronic dyspnea which she feels is at baseline/no recent changes/chronic. Case reviewed with Dr. Méndez. He feels okay for patient to proceed with surgery as scheduled with recommendation to order preop CXR for AM DOS (order placed). Chart Review Chart Review: Acceptable Risk for Surgery (pending evaluation/preop CXR AM DOS) and Patient NOT seen in Pre Admission Testing History Surgery Operation Date: 04/16/20 07:00 Proposed Procedures p Laparoscopic Cholecystectomy - Cas Arreaga MD, FACS Height/Weight Height: 5 ft 3.5 in Weight: 120.656 kg Allergies Allergy/AdvReac Type Severity Reaction Status Date / Time Penicillins Allergy Unknown Unknown Verified 04/11/20 11:36 reaction (see comment) Medications Home Medications Medication Instructions Recorded Confirmed Last Taken cyclobenzaprine 10 mg tablet 10 mg PO TID PRN 11/25/17 04/05/20 Unknown fexofenadine 180 mg tablet 180 mg PO HS tab 11/25/17 04/05/20 05/17/18 hydroxychloroquine [Plaquenil] 200 mg PO BID 04/09/18 04/05/20 05/17/18 gabapentin 400 mg capsule 400 mg PO TID #90 cap 01/05/20 04/05/20 Unknown diclofenac sodium 75 mg 75 mg PO BID #180 tab 03/28/20 04/05/20 Unknown tablet,delayed release esomeprazole magnesium 20 mg 20 mg PO BID cap 04/03/20 04/05/20 Unknown capsule,delayed release Estrogen Patch 1 patch TOPICAL 2XWK 04/05/20 04/05/20 Unknown albuterol sulfate 1 inh INHALATION QID PRN 04/05/20 04/05/20 Unknown calcium carbonate-vitamin D3 1 tab PO QAM 04/05/20 04/05/20 Unknown [Calcium 500 + D (D3)] diltiazem HCl 120 mg PO QAM 04/05/20 04/05/20 Unknown furosemide 40 mg PO QAM 04/05/20 04/05/20 Unknown levothyroxine 200 mcg PO QAM 04/05/20 04/05/20 Unknown losartan 100 mg PO QAM 04/05/20 04/05/20 Unknown prednisone 5 mg PO QAM 04/05/20 04/05/20 Unknown spironolactone 25 mg PO QAM 04/05/20 04/05/20 Unknown Past Medical History Medical History Asthma rare inhaler use Chronic diastolic congestive heart failure follows with [facility] (Dr. Astudillo ) Depression Edema "Mild" B/L LE Gastroesophageal reflux disease Hidradenitis suppurativa Hyperlipidemia per records, pt denies Hypertension Hypothyroidism Hypothyroidism Hypoventilation syndrome Interstitial lung disease Lumbar disc herniation remote hx Morbid obesity Osteoarthritis Pulmonary fibrosis Rheumatoid arthritis on chronic prednisone 5mg daily Rosacea Sleep apnea + nocturnal hypoxemia- CPAP + 4L HS Steroid-induced osteoporosis Past Family History Family History Mother Transient ischemic attack Thyroid disorder Hypertension Brother Rheumatoid arthritis Father Cardiac disorder Sister Asthma Allergic rhinitis Other No family history of adverse response to anesthesia Past Surgical History Surgical History History of bronchoscopy History of cardiac cath x2--04/2017, 07/2017, no stents History of cataract surgery R/L (2019) History of section History of colonoscopy History of esophagogastroduodenoscopy (EGD) History of hysterectomy History of lung surgery VATS by Dr. Cruz > 2005 History of tonsillectomy and adenoidectomy History of tooth extraction History of wisdom tooth extraction Social History Smoking Status: Never smoker Do You Dip or Chew Tobacco: No Hx Alcohol Use: No Hx Substance Use: No substance use type: does not use Testing Laboratory Results 04/10/20 WBC 9.68 H/H 12.9/41.4 PLATELETS 348 02/21/20 SODIUM 141 POTASSIUM 4.1 CHLORIDE 108 CO2 27 BUN 17 CREATININE 0.93 GLUCOSE 88 TSH 0.409 HGBA1C 5.8% Echocardiogram Date: 11/05/16 Normal LV size and systolic function. EF 60-65%. No regional wall motion abnormalities. Grade I diastolic dysfunction. Normal RV size and systolic function. No significant valvular pathology. Stress Test Date: 02/10/17 Type: DSE Negative for ischemia at 107% MPHR. Resting echo with normal LV size and systolic function. EF 55-59%. Mild concentric LVH. Abnormal septal motion consistent with RV pressure/volume overload, otherwise, normal wall motion. Grade I diastolic dysfunction. Mild left atrial enlargement. No significant valvular pathology. Inadequate TR jet to estimate pulmonary artery pressure. Cardiac Catheterization Date: 07/16/17 Right heart catheterization 04/17/2017: Elevated right and left sided filling pressures. Borderline pulmonary HTN. Preserved cardiac output. No evidence of left to right shunt. Right and left heart catheterization 07/16/2017: Angiographically normal coron satish arteries. Elevated intracardiac pressures. Other Testing Chest CT: 01/18/19: FINDINGS: The lungs are clear. The mediastinal vascular structures are within normal limits. No mediastinal or hilar lymphadenopathy. No pleural effusion or pneumothorax. Limited views of the upper abdomen demonstrate a normal liver and spleen. Stable postoperative changes left base
[2020-04-16] MEDS ORDERED: LR 15ML/HR IV SCH (06:00)
[2020-04-16] MEDS ORDERED: CIPROFLOXACIN / D5W 400 MG/200 ML BAG IV SCH (06:00)
--- NOTE | 2020-04-16 06:38 | History & Physical Bridge Note ---
Date of Service April 16, 2020 History & Physical Bridge Note I have examined the patient, reviewed the History & Physical and in the interval since the performance of the History & Physical I have noted the following changes of clinical significance: no changes noted
[2020-04-16] MEDS ORDERED: fentaNYL citrate 100 MCG/2 ML VIAL ONE (06:40)
[2020-04-16] MEDS ORDERED: MIDAZOLAM HCL 1 MG/ML 2ML VIAL ONE (06:40)
--- NOTE | 2020-04-16 06:40 | XRay Report ---
TWO VIEW CHEST CLINICAL HISTORY: Preoperative examination. FINDINGS: PA and lateral chest radiographs are compared to study dated 06/25/2015 and correlated with chest CT dated 01/18/2019. The heart is enlarged. The pulmonary vasculature is noncongested. Chronic i nterstitial thickening is similar to previous. There is mild bibasilar scarring/atelectasis. No airsp cesilia consolidation or pleural effusion is identified. There is no pneumothorax. The skeletal structure s are osteopenic. There are healed bilateral rib fractures. IMPRESSION: Cardiomegaly with no active disease in the chest. ACT 112: Negative or not required by law. Electronically signed by: Kody Regalado M.D. 04/16/2020 6:38 AM
[2020-04-16] MEDS ORDERED: SUGAMMADEX SODIUM 200 MG/2 ML VIAL IV ONE (06:47)
[2020-04-16] MEDS ORDERED: ACETAMINOPHEN 1000 MG/100 ML IV IV ONE (06:47)
[2020-04-16] MEDS ORDERED: BUPIVACAINE 0.5 % 5 MG/1 ML MPF 30ML VIAL ONE (06:57)
[2020-04-16] MEDS ORDERED: ROCURONIUM BROMIDE 10 MG/ML 5 ML VIAL IV ONE (07:38)
[2020-04-16] MEDS ORDERED: LIDOCAINE HCL 2% 2 ML VIAL/AMP(20MG/ML) INFIL ONE (07:38)
[2020-04-16] MEDS ORDERED: LARYING-O-JET KIT (LTA) ONE (07:38)
[2020-04-16] MEDS ORDERED: PROPOFOL IV EMULSION 10 MG/ML 20 ML VIAL IV ONE (07:38)
[2020-04-16] MEDS ORDERED: SUCCINYLCHOLINE CHLORIDE 20 MG/ML 10 ML VIAL IV ONE (07:39)
[2020-04-16] MEDS ORDERED: ONDANSETRON INJ 2 MG/ML 2 ML VIAL ONE (07:39)
[2020-04-16] MEDS ORDERED: HYDROCORTISONE SOD SUCCINATE 100 MG/2 ML VIAL ONE (07:39)
[2020-04-16] MEDS ORDERED: ALBUTEROL HFA INHALER 8.5 GM ONE (07:39)
[2020-04-16] MEDS ORDERED: ePHEDrine sulfate 50 MG/ML AMP IV PRN (07:45)
[2020-04-16] MEDS ORDERED: HYDROmorphone INJ 1 MG/ML SYRINGE IV PRN (07:45)
[2020-04-16] MEDS ORDERED: ATROPINE SULFATE 0.1 MG/ML 10ML SYR IV PRN (07:45)
[2020-04-16] MEDS ORDERED: ONDANSETRON INJ 2 MG/ML 2 ML VIAL IV PRN ×2 (07:45→09:52)
[2020-04-16] MEDS ORDERED: PHENYLEPHRINE 100MCG/ML 5ML SYR ONE (07:50)
[2020-04-16] MEDS ORDERED: ePHEDrine sulfate 50 MG/ML SYR ONE (07:50)
[2020-04-16] MEDS ORDERED: FLOSEAL HEMOSTATIC MATRIX 5ML TOP ONE (08:00)
--- NOTE | 2020-04-16 08:20 | Post Operative Brief Note ---
PG Immediate Post Op with CF Date of Surgery April 16, 2020 Pre & Post Diagnosis Operation Date: 04/16/20 07:00 <No data on this case meets the specified criteria> Chronic cholecystitis I identified the patient and participated in the time-out.: Yes Procedure Operation Date: 04/16/20 07:00 <No data on this case meets the specified criteria> Laparoscopic cholecystectomy Surgeon Cas Arreaga MD, FACS Front Office Secretary Shaina Hallman Estimated Blood Loss 10 Findings Consistent with Post-Op Diagnosis Specimens Specimen Description: Permanent specimen: A. Gallbladder and contents
[2020-04-16] MEDS: fentaNYL citrate 100 MCG/2 ML VIAL IV PRN ×4 (08:51→09:13)
--- NOTE | 2020-04-16 09:07 | Anesthesiology Progress Note ---
Date of Service April 16, 2020 Anesthesia Post Procedure Vital Signs Vital Signs: Temp Pulse Pulse Resp BP Pulse Ox 04/16/20 08:55 81 16 132/78 100 04/16/20 08:45 85 15 131/77 100 04/16/20 08:36 36.4 C L 88 12 128/74 100 04/16/20 06:03 36.8 C 88 20 136/77 97 Pain Intensity Abdomen: Pain Intensity: 5 Transfer of Care Handoff Completed per policy Notes Mental Status: alert / awake / arousable and participated in evaluation Patient Amnestic to Procedure: Yes Nausea / Vomiting: adequately controlled Pain: adequately controlled Airway Patency, RR, SpO2: stable & adequate BP & HR: stable & adequate Hydration State: stable & adequate Anesthetic Complications: no major complications apparent and Pt Satisfied with anesthetic care Notes: The patient is doing well in recovery with no complaints. She was instructed preop and in recovery to wear her CPAP whenever she thinks she may fall asleep, even if just for a nap on the couch, for at least the next 24 hours and while she is on pain medication. I explained that anesthesia and narcotic pain medication will make her sleep apnea worse. She understands and agrees.
[2020-04-16] MEDS ORDERED: LACTATED RINGER'S 1,000 ML IV SCH (09:52)
[2020-04-16] MEDS ORDERED: MoRPHine SULFATE 4 MG/ML 1 ML CARP\\VIAL IV PRN (09:52)
[2020-04-16] MEDS ORDERED: MoRPHine SULFATE 2 MG/ML CARP IV PRN ×2 (09:52)
[2020-04-16] MEDS ORDERED: PROMETHAZINE HCL 12.5 MG in SODIUM CHLORIDE 0.9% 50 ML IV PRN (09:52)
[2020-04-16] MEDS ORDERED: HYDROCODONE/ACETAMOPHEN 5/325MG TAB PO PRN (09:52)
[2020-04-16] MEDS ORDERED: ACETAMINOPHEN 325 MG TAB PO PRN (09:52)
[2020-04-16] MEDS ORDERED: PROMETHAZINE HCL 25 MG in SODIUM CHLORIDE 0.9% 50 ML IV PRN (09:52)
--- NOTE | 2020-04-16 10:44 | Operative Report (OR) ---
DATE OF OPERATION: 04/16/2020 NAME OF OPERATION: Laparoscopic cholecystectomy. PREOPERATIVE DIAGNOSIS: Chronic cholecystitis. POSTOPERATIVE DIAGNOSIS: Chronic cholecystitis. STAFF SURGEON: Cas Arreaga MD. RESPIRATORY CARE INSTRUCTOR: Hermes Hallman PA-C. ANESTHESIA: General. DESCRIPTION OF PROCEDURE: The patient was brought in the operating room and placed on the operating table in supine position. Her abdomen was prepped and draped in usual fashion. Pneumatic stockings and orogastric tube were placed. 0.5% plain Marcaine was used to anesthetize all incisions. Incision was made above the umbilicus, carrying dissection down through the significant adipose tissue to the fascia, placing a Veress needle producing pneumoperitoneum, placing an 11 mm port. Under visualization, two 5 mm ports were placed. The patient's gallbladder was very large with large stones, chronically thickened. It was retracted. Dissection carried out to the jason hepatis, identifying the cystic duct. I think associated with the duct was the cystic artery. This was clipped and transected. There was another small segment, which may have been the cystic artery, which was cauterized and then clipped. The gallbladder was then dissected away from the liver bed in the usual fashion, placed in an Endobag. It had very large stones. I did place some Surgicel and FloSeal in the jason hepatis in the subhepatic space. There was no significant bleeding. At this point, the gallbladder was removed through the umbilical site. I did have to enlarge the fascial defect significantly to remove the very large stones and gallbladder. The fascia at the umbilicus was closed using a 0 PDS suture. Skin was reapproximated using subcuticular 4-0 Monocryl and Steri-Strips. The patient was transferred to recovery room in stable condition. I attest to the content of the Intraoperative Record and any orders documented therein. Any exception s are noted below.
--- NOTE | 2020-04-16 11:51 | Hospitalist Consultation ---
Date of Consultation April 16, 2020 Assessment & Plan (1) S/P laparoscopic cholecystectomy: Mrs. Simpson is a 54-year-old female with a history of Hypertension, Rheumatoid Arthritis, GERD, Hypothyroidism, Back Pain, Degenerative Disc Disease, Depression, Obstructive Sleep Apnea (CPAP with supplemental O2), Asthma, O2- Dependant Interstitial Lung Disease/Pulmonary Fibrosis, and Chronic Cholecystitis who underwent a Laparoscopic Cholecystectomy POD#0. She has had symptoms with her gall bladder for about 1 year -- including gassy, flatulent, and intermittent nausea. Patient is currently being seen in room 303-1. Patient offers no complaints at the present time. She is passing flatus and is "gassy". She is sore from the surgery, but no more than she thought she would be. She is urinating with difficulty or urinary symptoms. She has not had any bowel movement today. She is otherwise doing well. Her breathing is at baseline. -- Progress diet as tolerated. -- Check CBC with diff, BMP, and LFT's in the morning. -- Continue Vicodin and Tylenol as needed for surgical pain. -- Surgical wound care as specified by Dr. Arreaga. -- Gall bladder sent to Pathology, report not back yet. -- DVT prophylaxis with compression stockings, ambulation. (2) Hypertension: -- Blood pressure appears to be well controlled. -- Continue Diltiazem CD 120 mg daily. -- Continue Losartan 100 mg daily. -- Continue Lasix 40 mg daily. -- Continue Spironolactone 25 mg daily. (3) Pulmonary fibrosis: -- On chronic low dose Prednisone 5 mg daily. -- Continue Albuterol MDI as needed. -- Duoneb nebulizers as ordered. (4) SYLVESTER (obstructive sleep apnea): -- Uses CPAP with O2 at 4L/min qHS. Supervising Physician Co-Signing Physician Notes I personally saw and examined the patient. I verified all oliveira points and agree with JESUS Garcia with the following exceptions and/or additions: 54-year-old female s/p cholecystectomy doing well. No acute medical needs identified. O/E HS 1+2, no murmurs, Chest CTAB, Abdo - dressing not removed, SNT A/P As above History of Present Illness Reason for Consultation: -- Post-op Medical Management. Requesting Physician: Cas Arreaga MD, FACS Attending Physician: El Doyle MD History of Present Illness Mrs. Simpson is a 54-year-old female with a history of Hypertension, Rheumatoid Arthritis, GERD, Hypothyroidism, Back Pain, Degenerative Disc Disease, Depression, Obstructive Sleep Apnea (CPAP with supplemental O2), Asthma, O2- Dependant Interstitial Lung Disease/Pulmonary Fibrosis, and Chronic Cholecystitis who underwent a Laparoscopic Cholecystectomy earlier today with Dr. Arreaga. Patient is currently being seen in room 303-1. Patient offers no complaints at the present time. She is passing flatus and is "gassy". She is sore from the surgery, but no more than she thought she would be. She is urinating with d ifficulty or urinary symptoms. She has not had any bowel movement today. She is otherwise doing well. She states that her breathing is at baseline, no recent SOB, unusual FULTON, or cough. She denies any chest pain or discomfort. No fever or chills. She has had symptoms with her gall bladder for about a year -- gassy, flatulent, and intermittent nausea. They put off surgery because of the COVID pandemic. She uses nocturnal O2 at 4L/min with her CPAP. She has had the following Cardiac Studies: ECHOCARDIOGRAM 11/05/2016: -- Normal LV size and systolic function. -- LVEF 60%-65%. No regional wall motion abnormalities. -- Grade I diastolic dysfunction. -- Normal RV size and systolic function. -- No significant valvular pathology. DOBUTAMINE STRESS ECHOCARDIOGRAM 02/10/2017: -- Negative for ischemia at 107% MPHR. Resting echo with normal LV size and systolic function. -- LVEF 55%-59%. Mild concentric LVH. -- Abnormal septal motion consistent with RV pressure/volume overload, oth erwise, normal wall motion. -- Grade I diastolic dysfunction. -- Mild left atrial enlargement. -- No significant valvular pathology. -- Inadequate TR jet to estimate pulmonary artery pressure. RIGHT HEART CATHETERIZATION 04/17/2017: -- RA 10; RV 38/10/ PA 38/20 (26); PCW 20 RIGHT and LEFT HEART CATHETERIZATION 07/16/2017: -- Angiographically normal coronary arteries. -- RA 7; RV 44/10; PA39/16 (27); PAWP 9; LVEDP 9. Allergies Allergy/AdvReac Type Severity Reaction Status Date / Time Penicillins Allergy Unknown Unknown Verified 04/16/20 05:56 reaction (see comment) Home Medications Medication Instructions Recorded Confirmed Type cyclobenzaprine 10 mg tablet 10 mg PO TID PRN 11/25/17 04/16/20 History fexofenadine 180 mg tablet 180 mg PO HS tab 11/25/17 04/16/20 History hydroxychloroquine [Plaquenil] 200 mg PO BID 04/09/18 04/16/20 History gabapentin 400 mg capsule 400 mg PO TID #90 cap 01/05/20 04/16/20 Rx diclofenac sodium 75 mg 75 mg PO BID #180 tab 03/28/20 04/16/20 Rx tablet,delayed release esomeprazole magnesium 20 mg 20 mg PO BID cap 04/03/20 04/16/20 History capsule,delayed release Estrogen Patch 1 patch TOPICAL [id number] 04/05/20 04/16/20 History albuterol sulfate 1 inh INHALATION QID PRN 04/05/20 04/16/20 History calcium carbonate-vitamin D3 1 tab PO QAM 04/05/20 04/16/20 History diltiazem HCl 120 mg PO QAM 04/05/20 04/16/20 History furosemide 40 mg PO QAM 04/05/20 04/16/20 History levothyroxine 200 mcg PO QAM 04/05/20 04/16/20 History losartan 100 mg PO QAM 04/05/20 04/16/20 History prednisone 5 mg PO QAM 04/05/20 04/16/20 History spironolactone 25 mg PO QAM 04/05/20 04/16/20 History hydrocodone-acetaminophen [Pandora] 1 - 2 tab PO Q6H PRN #30 tab 04/16/20 Rx Patient History Medical History Asthma rare inhaler use Chronic diastolic congestive heart failure follows with [facility] (Dr. Astudillo ) Depression Edema "Mild" B/L LE Gastroesophageal reflux disease Hidradenitis suppurativa Hyperlipidemia per records, pt denies Hypertension Hypothyroidism Hypothyroidism Hypoventilation syndrome Interstitial lung disease Lumbar disc herniation remote hx Morbid obesity Osteoarthritis Pulmonary fibrosis Rheumatoid arthritis on chronic prednisone 5mg daily Rosacea Sleep apnea + nocturnal hypoxemia- CPAP + 4L HS Steroid-induced osteoporosis Surgical History (Updated 04/17/20 @ 08:19 by Sigrid Luna RN) History of bronchoscopy History of cardiac cath x2--04/2017, 07/2017, no stents History of cataract surgery R/L (2019) History of section History of colonoscopy History of esophagogastroduodenoscopy (EGD) History of hysterectomy History of lung surgery VATS by Dr. Cruz > 2005 History of tonsillectomy and adenoidectomy History of tooth extraction History of wisdom tooth extraction Hx laparoscopic cholecystectomy (04/16/19) Laparoscopic cholecystectomy. Dr. Arreaga 04/16/2019 Family History Mother Transient ischemic attack Thyroid disorder Hypertension Brother Rheumatoid arthritis Father Cardiac disorder Sister Asthma Allergic rhinitis Other No family history of adverse response to anesthesia Social History Smoking Status: Never smoker Second Hand Exposure: Yes (as kid); Do You Dip or Chew Tobacco: No; Tobacco Cessation Education Requested by Patient: No Hx Alcohol Use: No Hx Substance Use: No Preferred Language: Bruneian Communication Ability: Effective Mail Distribution Scheme Examiner Required: No Beliefs That Will Affect Care: None marital status: Current Living Situation: Spouse Current Living Situation Comment: Lives with and in laws 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 Assistive Devices: None Review of Systems Review of Systems: All systems reviewed & are unremarkable except as noted in Subjective Physical Exam Physical Exam: GENERAL: Patient in no acute distress. HEENT: Head is atraumatic, normocephalic. EOM's intact. Sclerae are anicteric. Facies symmetric. No perioral cyanosis. NECK: No JVD. JVP is not elevated. Carotid upstrokes are + 2 bilaterally. No bruits are noted. CHEST/LUNGS: Clear to auscultation throughout all lung persaud. No wheezes, rales, or crackles. CVS: S1 and S2 are regular without murmurs, gallops, or rubs. PMI is nonpalpable. No lifts, heaves, or thrills. No abdominal aortic or renal bruits. ABDOMINAL EXAM: Bowel sounds are present. EXTREMITIES: No clubbing or cyanosis. Trace pretibial edema. Intact radial pulses bilaterally. NEUROLOGIC EXAM: Patient is awake, alert, and oriented. Pleasant and cooperative. Answers questions appropriately. Speech is clear. Normal movement in all 4 extremities. Gait pattern was not assessed. Results & Data Results & Data ([facility]) Vital Signs (Past 12 Hours) Vital Signs Temp Pulse Pulse Pulse Resp BP BP 04/16/20 10:37 36.6 C 85 16 118/72 04/16/20 10:11 78 16 129/82 04/16/20 09:40 36.7 C 85 16 122/74 04/16/20 09:15 36.5 C 85 20 126/74 04/16/20 09:05 78 15 124/69 04/16/20 08:55 81 16 132/78 04/16/20 08:45 85 15 131/77 04/16/20 08:36 36.4 C L 88 12 128/74 04/16/20 06:03 36.8 C 88 20 136/77 Pulse Ox 04/16/20 10:37 92 04/16/20 10:11 99 04/16/20 09:40 98 04/16/20 09:15 97 04/16/20 09:05 95 04/16/20 08:55 100 04/16/20 08:45 100 04/16/20 08:36 100 04/16/20 06:03 97 Diagnostic Findings CXR 04/16/2020: FINDINGS: PA and lateral chest radiographs are compared to study dated 06/25/2015 and correlated with chest CT dated 01/18/2019. The heart is enlarged. The pulmonary vasculature is noncongested. Chronic interstitial thickening is similar to previous. There is mild bibasilar scarring/atelectasis. No airspace consolidation or pleural effusion is identified. There is no pneumothorax. The skeletal structures are osteopenic. There are healed bilateral rib fractures. IMPRESSION: Cardiomegaly with no active disease in the chest. ABDOMINAL ULTRASOUND, RIGHT UPPER QUADRANT 03/05/2020: HISTORY: R14.0 - Abdominal distension (gaseous). COMPARISON: None. FINDINGS: No hepatic lesions are identified. Caliber of the common bile duct is at the upper limits of normal, measuring 7 mm. Gallbladder is essentially filled with gallstones. There is no gallbladder wall thickening. No sonographic Nelson sign is noted. Pancreatic body is normal. Head and tail are obscured. There is no right hydronephrosis. IMPRESSION: 1. Gallbladder filled with gallstones. No evidence for acute cholecystitis. 2. Borderline dilatation of the common bile duct which could be correlated with liver function tests. 3. Partially obscured pancreas. Medications Administered Hydrocodone Bitart/Acetaminophen (Hydrocodone/Acetamophen 5/325mg Tab) 1 tab PO Q4HWA PRN PRN Reason: Pain Stop: 04/30/20 09:51 Last Admin: 04/16/20 12:20 Dose: 1 tab Documented by: [id number] Discontinued Medications Bupivacaine HCl (Bupivacaine 0.5 % 5 Mg/1 Ml Mpf 30ml Vial) Confirm Administered Dose 30 ml .ROUTE .STK-MED ONE Stop: 04/16/20 06:58 Last Admin: 04/16/20 08:21 Dose: 12 ml Documented by: [id number] Fentanyl Citrate (Fentanyl Citrate 100 Mcg/2 Ml Vial) 25 mcg IV Q5M PRN PRN Reason: PACU Use Only-Pain Stop: 04/16/20 15:45 Last Admin: 04/16/20 09:13 Dose: 25 mcg Documented by: [id number] Admin: 04/16/20 09:08 Dose: 25 mcg Documented by: [id number] Admin: 04/16/20 09:00 Dose: 25 mcg Documented by: [id number] Admin: 04/16/20 08:51 Dose: 25 mcg Documented by: [id number] Ciprofloxacin (Cipro / D5w) 400 mg in 200 mls @ 100 mls/hr IV PREOP KENN Stop: 04/16/20 18:00 Last Admin: 04/16/20 07:04 Dose: 100 mls/hr Documented by: [id number] Lactated Ringer's (Lr) 1,000 mls @ 15 mls/hr IV .Q24H KENN Stop: 04/17/20 05:59 Last Infusion: 04/16/20 07:04 Dose: 0 mls/hr Documented by: [id number] Admin: 04/16/20 06:32 Dose: 15 mls/hr Documented by: [id number] Lactated Ringer's (Lr) 1,000 mls @ 50 mls/hr IV .Q20H KENN Stop: 05/16/20 09:51 Last Admin: 04/16/20 10:21 Dose: 50 mls/hr Documented by: [id number] Miscellaneous ( Floseal Hemostatic Matrix 5ml) 5 ml TOP ONCE ONE Stop: 04/16/20 08:01 Last Admin: 04/16/20 08:00 Dose: 5 ml Documented by: [id number] PG Care Time/CCT Total # of Minutes Spent Total Time Spent with Patient: Total time spent is greater than 50% in coordination of care (as documented) at patient's floor/unit and/or counseling patient:35 Coding Level of Care Code 30599 Office/OBS Consult Lvl 4 Diagnoses S/P laparoscopic cholecystectomy Z90.49 Hypertension I10 Pulmonary fibrosis J84.10 SYLVESTER (obstructive sleep apnea) G47.33 Time Spent (min) 60
[2020-04-16] MEDS: HYDROCODONE/ACETAMOPHEN 5/325MG TAB PO PRN ×2 (12:20→20:41)
--- NOTE | 2020-04-16 12:38 | Hospitalist Consultation ---
Date of Consultation April 16, 2020 Assessment & Plan (1) S/P laparoscopic cholecystectomy: With Dr. Arreaga on 04/16/2020. No operative complications. - Post-operative care and DVT ppx per primary team. (2) Obstructive sleep apnea: Uses CPAP at night; 12 cmH20 with 4L O2 pass-through. - Ordered for tonight. (3) Hypertension: BP presently 110/75. Skipped home losartan & spironolactone this morning per physician's instructions. - Continue home diltiazem - Restart home furosemide tomorrow AM - Monitor BP -> Can resume all home meds on discharge. (4) Chronic diastolic congestive heart failure: Follows with cardiology. Presently appears euvolemic, but likely received IV fluids in the OR. - Monitor closely. - Restart home furosemide tomorrow AM (5) Rheumatoid arthritis: No acute joint issues. - Continue home hydroxychloroquine BID - Continue home prednisone daily -> Despite operative stresses, BP and HR are st able, so will defer stress-dose steroids unless BP falls. (6) Extrinsic asthma: Faint wheezing on exam today. No subjective shortness of breath. - Continue home fexofenadine - DuoNebs PRN (7) Hypothyroidism: TSH was 0.4 in 02/2020. No signs/symptoms of hypo-/hyperthyroidism. - Continue home Synthroid 200 mcg (8) Anxiety: No major issues on my exam today. - Continue home meds (9) DVT prophylaxis: SCDs - Heparin per primary team's discretion. History of Present Illness Attending Physician: Cas Arreaga MD, [facility] History of Present Illness 54yo F w/ hx of asthma, HTN, "increased pressure in her heart" who presents as a routine consult after a lap amparo with Dr. Arreaga on 04/16/2020. The surgery went without event, and the patient is feeling overall well after her surgery. She denies substantial abdominal pain. Reports no fevers/chills, chest pain, shortness of breath, abdominal pain, dara sea, or vomiting. Allergies Allergy/AdvReac Type Severity Reaction Status Date / Time Penicillins Allergy Unknown Unknown Verified 04/16/20 05:56 reaction (see comment) Home Medications Medication Instructions Recorded Confirmed Type cyclobenzaprine 10 mg tablet 10 mg PO TID PRN 11/25/17 04/16/20 History fexofenadine 180 mg tablet 180 mg PO HS tab 11/25/17 04/16/20 History hydroxychloroquine [Plaquenil] 200 mg PO BID 04/09/18 04/16/20 History gabapentin 400 mg capsule 400 mg PO TID #90 cap 01/05/20 04/16/20 Rx diclofenac sodium 75 mg 75 mg PO BID #180 tab 03/28/20 04/16/20 Rx tablet,delayed release esomeprazole magnesium 20 mg 20 mg PO BID cap 04/03/20 04/16/20 History capsule,delayed release Estrogen Patch 1 patch TOPICAL [id number] 04/05/20 04/16/20 History albuterol sulfate 1 inh INHALATION QID PRN 04/05/20 04/16/20 History calcium carbonate-vitamin D3 1 tab PO QAM 04/05/20 04/16/20 History [Calcium 500 + D (D3)] diltiazem HCl 120 mg PO QAM 04/05/20 04/16/20 History furosemide 40 mg PO QAM 04/05/20 04/16/20 History levothyroxine 200 mcg PO QAM 04/05/20 04/16/20 History losartan 100 mg PO QAM 04/05/20 04/16/20 History prednisone 5 mg PO QAM 04/05/20 04/16/20 History spironolactone 25 mg PO QAM 04/05/20 04/16/20 History hydrocodone-acetaminophen [Paradise] 1 - 2 tab PO Q6H PRN #30 tab 04/16/20 Rx promethazine 25 mg tablet 25 mg PO Q6H PRN #10 tab 04/16/20 Rx Patient History Medical History Asthma rare inhaler use Chronic diastolic congestive heart failure follows with [facility] (Dr. Astudillo ) Depression Edema "Mild" B/L LE Gastroesophageal reflux disease Hidradenitis suppurativa Hyperlipidemia per records, pt denies Hypertension Hypothyroidism Hypothyroidism Hypoventilation syndrome Interstitial lung disease Lumbar disc herniation remote hx Morbid obesity Osteoarthritis Pulmonary fibrosis Rheumatoid arthritis on chronic prednisone 5mg daily Rosacea Sleep apnea + nocturnal hypoxemia- CPAP + 4L HS Steroid-induced osteoporosis Surgical History History of bronchoscopy History of cardiac cath x2--04/2017, 07/2017, no stents History of cataract surgery R/L (2019) History of section History of colonoscopy History of esophagogastroduodenoscopy (EGD) History of hysterectomy History of lung surgery VATS by Dr. Cruz > 2005 History of tonsillectomy and adenoidectomy History of tooth extraction History of wisdom tooth extraction Family History Mother Transient ischemic attack Thyroid disorder Hypertension Brother Rheumatoid arthritis Father Cardiac disorder Sister Asthma Allergic rhinitis Other No family history of adverse response to anesthesia Social History Smoking Status: Never smoker Second Hand Exposure: Yes (as kid); Do You Dip or Chew Tobacco: No; Tobacco Cessation Education Requested by Patient: No Hx Alcohol Use: No Hx Substance Use: No Preferred Language: Sinhala Communication Ability: Effective Bursar Required: No Beliefs That Will Affect Care: None marital status: Current Living Situation: Spouse Current Living Situation Comment: Lives with and in laws 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 Assistive Devices: None Review of Systems Review of Systems: All systems reviewed & are unremarkable except as noted in HPI & below Physical Exam Constitutional: WD/WN, vitals as above Eyes: EOM intact bilaterally; no conjunctival abnormality ENMT: external ear and nose normal, oropharynx normal Neck: trachea midline, no thyromegaly normal visual inspection Respiratory: no respiratory distress and no labored breathing Auscultation: + wheezes (Very mild, end-expiratory wheeze) Cardiovascular: RRR, no murmur, no edema Gastrointestinal (Abdomen): Inspection/Auscultation: abdomen normal to inspection; abdomen not distended Musculoskeletal: no cyanosis or clubbing, extremities motor strength 5/5 Skin: no rashes, warm and dry Neurologic: moves all extremities and awake Psychiatric: Orientation: alert, oriented to person and cooperative Results & Data Results & Data ([facility]) Vital Signs (Past 12 Hours) Vital Signs Temp Pulse Pulse Pulse Resp BP BP 04/16/20 11:49 77 16 111/75 04/16/20 10:37 36.6 C 85 16 118/72 04/16/20 10:11 78 16 129/82 04/16/20 09:40 36.7 C 85 16 122/74 04/16/20 09:15 36.5 C 85 20 126/74 04/16/20 09:05 78 15 124/69 04/16/20 08:55 81 16 132/78 04/16/20 08:45 85 15 131/77 04/16/20 08:36 36.4 C L 88 12 128/74 04/16/20 06:03 36.8 C 88 20 136/77 Pulse Ox 04/16/20 11:49 93 04/16/20 10:37 92 04/16/20 10:11 99 04/16/20 09:40 98 04/16/20 09:15 97 04/16/20 09:05 95 04/16/20 08:55 100 04/16/20 08:45 100 04/16/20 08:36 100 04/16/20 06:03 97 PG Care Time/CCT Total # of Minutes Spent Total Time Spent with Patient: Total time spent is greater than 50% in coordination of care (as documented) at patient's floor/unit and/or counseling patient: Coding Level of Care Code 20213 Office/OBS Consult Lvl 4 Diagnoses S/P laparoscopic cholecystectomy Z90.49 Obstructive sleep apnea G47.33 Hypertension I10 Chronic diastolic congestive heart failure I50.32 Rheumatoid arthritis M06.9 Extrinsic asthma J45.909 Hypothyroidism E03.9 Anxiety F41.9 DVT prophylaxis Z29.9
[2020-04-16] MEDS ORDERED: ALBUT/IPRATROP 3MG/0.5MG NEB 3 ML VIAL NEB PRN (12:39)
[2020-04-16] MEDS: GABAPENTIN 400 MG CAP PO SCH ×2 (13:49→20:41)
[2020-04-16 15:18] LABS: Hematocrit (blood only) 42.1 % (37-47); Hemoglobin 13.3 g/dL (12.0-16.0)
[2020-04-16] MEDS: HYDROXYCHLOROQUINE SULFATE 200 MG TAB PO SCH (20:41)
[2020-04-16] MEDS: PANTOprazole 40 MG TAB PO SCH (20:41)
[2020-04-16] MEDS: predniSONE 5 MG TAB PO SCH (20:42)
[2020-04-16] MEDS: IBUPROFEN 600 MG TAB PO PRN (20:45)
[2020-04-16] MEDS ORDERED: FEXOFENADINE HCL 180 MG TAB PO SCH (21:00)
[2020-04-17 05:51] LABS: Basophils # (auto) 0.12 K/uL (0-0.2); Basophils % (auto) 1.3 %; Eosinophils # (auto) 0.41 K/uL (0-0.5); Eosinophils % (auto) 4.5 %; Hemoglobin 11.5 g/dL (12.0-16.0); Immature Granulocytes # (auto) 0.03 K/uL (0.00-0.02); Immature Granulocytes % (auto) 0.3 %; Lymphocytes # (auto) 1.36 K/uL (1.2-3.4); Lymphocytes % (auto) 14.8 %; Mean Corpuscular Hemoglobin 28.9 pg (25-34); Mean Corpuscular Hgb Conc 31.1 g/dL (32-36); Mean Platelet Volume 9.6 fL (7.4-10.4); Monocytes # (auto) 0.54 K/uL (0.11-0.59); Monocytes % (auto) 5.9 %; Neutrophils # (auto) 6.75 K/uL (1.4-6.5); Neutrophils % (auto) 73.2 %; Platelet Count 278 K/uL (130-400); RDW Coefficient of Variation 15.6 % (11.5-14.5); RDW Standard Deviation 52.8 fL (36.4-46.3); Red Blood Count 3.98 M/uL (4.2-5.4); White Blood Count 9.21 K/uL (4.8-10.8)
[2020-04-17 06:18] LABS: BUN Creatinine Ratio 12.3 (10-20); Calcium 8.2 mg/dl (8.5-10.1); Creatinine Clr Calc Pharmacy 82.7 ml/min; Est GFR (African American) 75.3; Est GFR (Non-African American) 64.9; Potassium 4.2 mmol/L (3.5-5.1)
[2020-04-17 06:22] LABS: Albumin Level 2.8 gm/dl (3.4-5.0); Bilirubin Direct 0.1 mg/dl (0-0.2); Bilirubin,Total 0.4 mg/dl (0.2-1); Total Protein 6.9 gm/dl (6.4-8.2)
[2020-04-17] MEDS ORDERED: LEVOTHYROXINE SODIUM 200 MCG TABLET PO SCH (06:30)
[2020-04-17] MEDS: predniSONE 5 MG TAB PO SCH (08:21)
[2020-04-17] MEDS: GABAPENTIN 400 MG CAP PO SCH (08:21)
[2020-04-17] MEDS: PANTOprazole 40 MG TAB PO SCH (08:21)
[2020-04-17] MEDS: HYDROXYCHLOROQUINE SULFATE 200 MG TAB PO SCH (08:21)
[2020-04-17] MEDS: IBUPROFEN 600 MG TAB PO PRN (08:29)
[2020-04-17] MEDS: HYDROCODONE/ACETAMOPHEN 5/325MG TAB PO PRN (08:29)
[2020-04-17] MEDS ORDERED: dilTIAZem HCL 120 MG CAPCR PO SCH (09:00)
[2020-04-17] MEDS ORDERED: FUROSEMIDE 40 MG TAB PO SCH (09:00)
--- NOTE | 2020-04-17 21:31 | Discharge Summary (DS) ---
PRINCIPAL DIAGNOSIS: Chronic cholecystitis. PROCEDURE: The patient underwent laparoscopic cholecystectomy. HISTORY OF PRESENT ILLNESS: The patient is a 54-year-old female who has been having upper abdominal pain for a long time and now is for definitive surgery. She was brought in the hospital on 04/16/2020 where she underwent laparoscopic cholecystectomy, which she tolerated very well. She had a chronically thickened gallbladder, very dilated too, very large stones. She did very well overnight and is felt stable for discharge home today. She is given prescriptions for p.o. pain meds and Phenergan. We will follow her in the office within 1-2 weeks.
== END 2020-04-17 11:37 | disposition home or self-care (01) ==
LOC: ASU 05:35 → 3E 05:35

== ENCOUNTER 2022-09-18 11:42 | Observation (INO) ==
[2022-09-18] MEDS ORDERED: ONDANSETRON INJ 2 MG/ML 2 ML VIAL IV STA (12:04)
[2022-09-18] MEDS ORDERED: SODIUM CHLORIDE 0.9% 1000ML 1,000 ML IV STA (12:04)
[2022-09-18] MEDS ORDERED: cefTRIAXone SODIUM 2,000 MG/70 ML BAG IV STA (12:04)
--- NOTE | 2022-09-18 12:16 | Emergency Department Note ---
Impression & Plan Abscess of right thigh, Cellulitis of right thigh ED Provider Note NAME: KRYSTAL AMEZQUITA AGE: 56 SEX: F : 1965 ARRIVES VIA: Walk-In INFORMANT: Patient, ED PROVIDER(S): Ruperto Gandhi DO CHIEF COMPLAINT: Abscess HPI: The patient is a 56-year-old female who is a history of being on Humira for rheumatoid arthritis who presented to the emergency department directly from her primary care physician office for evaluation of abscess. Patient was seen in our facility 3 days ago for similar complaints. The patient at that time had an incision and drainage of a right thigh abscess. There was significant surrounding erythema and cellulitis noted on the day of the incision and drainage as I am the physician who saw the patient in the emergency department. She was seen in follow-up today by her primary care physician's office. She was sent directly to the emergency department because of worsening symptoms. The patient states that the erythema is significantly improved but she still has some swelling and pain in the thigh as well as nausea. She states she does not feel well. She has discomfort in her abdomen with nausea and feels though she cannot take the medications. The patient denies having any fever. She denies having any chest pain or difficulty breathing. The patient has not been taking her outpatient medications such as her Cardizem as well. The patient is also been putting her own packing in the incision and drainage site ROS: See above HPI for pertinent positives & negatives. A total of 10 systems reviewed and were otherwise negative. PAST MEDICAL HISTORY: See Below PAST SURGICAL HISTORY: See Below FAMILY HISTORY: See Below SOCIAL HISTORY: See Below HOME MEDICATIONS: See Below ALLERGIES: See Below VITALS: See Below PHYSICAL EXAMINATION: GENERAL: Patient is awake alert in no acute distress patient is resting comfortably and showing no signs of anxiety EYES: The conjunctivae are clear. The pupils are round and reactive. EARS, NOSE, MOUTH AND THROAT: The nose is without any evidence of any deformity. Mucous membranes are moist. Tongue is midline. NECK: The neck is nontender and supple. RESPIRATORY: Normal respiratory effort is noted there is no evidence of wheezing rhonchi or rales CARDIOVASCULAR: Regular rate and rhythm noted there no murmurs rubs or gallops normal S1 normal S2. GASTROINTESTINAL: The abdomen is soft. Abdomen is nontender. MUSCULOSKELETAL/EXTREMITIES: There is no evidence of gross deformity full range of motion is noted in the hips and shoulders. SKIN: There is an area of induration on the right anterior thigh. There is a wound dressing in place. The surrounding erythema is significantly improved. The dressing was removed and there was a packing in the wound. This was removed as well. There was a small amount of purulent drainage noted. There is also small amount of bleeding. NEUROLOGIC: Patient is awake alert and oriented x3 MEDICAL DECISION MAKING: The patient is a 56-year-old female with a managed a right thigh abscess on a few days ago. She returns emergency department today at the request of her primary care physician the patient to my evaluation had significant improvement of the erythema that was surrounding the abscess however she still has drainage from the abscess. Ultrasound does not show significant fluid collection that would require another incision and drainage however given the degree of the patient's symptoms she was treated with IV antibiotics in the emergency department as well as IV antiemetics. [facility] have agreed to evaluate the patient in the emergency department for further management and disposition. The patient was started on antibiotics to cover MRSA as this was the culture result from the other day when I initially saw the patient. Triage Nursing notes reviewed. Prior medical records reviewed Vital Signs: reviewed and remarkable for no significant abnormalities Differential diagnosis: Cellulitis, abscess, MRSA infection, DVT, necrotizing fasciitis, dermatitis, drug eruption, allergic reaction, as well as other pathologies. ER treatment provided: See below Diagnostics interpreted by me: ECG: EKG was obtained in the emergency department. My interpretation is normal sinus rhythm at 87 bpm. There was no ectopy. There is no acute ST segment abnormalities noted. Anterior T wave inversions were noted. This was compared to a tracing from April 10, 2020. No changes were noted. Cardiac Monitoring: An order was placed for continuous cardiac monitoring. The monitor shows a rate of 85 bpm with sinus rhythm. Laboratory studies: As stated above and show below. Imaging studies: See below. Radiographic imaging was reviewed by myself Consultation(s): I discussed this case with Dr. Schmid who is [facility] Past Med/Surg History Medical History Asthma rare inhaler use Bloating Chronic diastolic congestive heart failure follows with [facility] (Dr. Astudillo ) Depression Diarrhea Edema "Mild" B/L LE Gastroesophageal reflux disease Hidradenitis suppurativa Hyperlipidemia per records, pt denies Hypertension Hypothyroidism Hypoventilation syndrome Interstitial lung disease Lumbar disc herniation L5-S1 disc bulge severe left NFS Morbid obesity Osteoarthritis Prediabetes Pulmonary fibrosis Pulmonary hypertension Rheumatoid arthritis on chronic prednisone 5mg daily Rosacea Sleep apnea + nocturnal hypoxemia- CPAP + 4L HS Steroid-induced osteoporosis Surgical History History of bronchoscopy History of cardiac cath x2--04/2017, 07/2017, no stents History of cataract surgery R/L (2019) History of section History of colonoscopy History of esophagogastroduodenoscopy (EGD) History of hysterectomy History of lung surgery VATS by Dr. Cruz > 2005 History of tonsillectomy and adenoidectomy History of tooth extraction History of wisdom tooth extraction Hx laparoscopic cholecystectomy (04/16/19) Laparoscopic cholecystectomy. Dr. Arreaga 04/16/2019 Family History Mother Transient ischemic attack Thyroid disorder Hypertension Coronary heart disease Brother Rheumatoid arthritis Father Cardiac disorder Coronary heart disease Sister Asthma Allergic rhinitis Hypertension Aunt Breast cancer Ovarian cancer Sister Heart disease Rheumatoid arteritis Dementia age 82 Other No family history of adverse response to anesthesia Denies family history of Prostate cancer Colorectal cancer Social History Smoking Status: Never smoker Second Hand Exposure: Yes (as a child); Do You Dip or Chew Tobacco: No; Hx Alcohol Use: No Hx Substance Use: No Preferred Language: [place] Communication Ability: Effective Hearing Ability: Normal 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 Seatbelt Use: always Sunscreen Use: Yes Assistive Devices: CPAP and Oxygen - Continuous Allergies Allergies Allergy/AdvReac Type Severity Reaction Status Date / Time Penicillins Allergy Unknown Unknown Verified 09/18/22 10:37 reaction (see comment) Home Meds Home Medications Medication Instructions Recorded Confirmed cyclobenzaprine 10 mg tablet 10 mg PO TID PRN Muscle Spasm 11/25/17 09/18/22 fexofenadine 180 mg tablet 180 mg PO HS 11/25/17 09/18/22 (Silvia Allergy) hydroxychloroquine 200 mg tablet 200 mg PO BID 04/09/18 09/18/22 (Plaquenil) albuterol sulfate 90 mcg/actuation 1 inh inhalation QID PRN Wheezing 04/05/20 09/18/22 aerosol inhaler calcium carbonate 500 mg-vitamin 1 tab PO QAM 04/05/20 09/18/22 D3 3.125 mcg (125 unit) tablet promethazine 25 mg tablet 25 mg PO DIRECTED PRN 02/18/21 09/18/22 NAUSEA/VOMITING adalimumab 40 mg/0.8 mL 40 mg subcut Q14D 09/02/21 09/18/22 subcutaneous syringe kit (Humira) esomeprazole magnesium 20 mg 20 mg PO DAILY 12/31/21 09/18/22 capsule,delayed release (Nexium 24HR) ibandronate 150 mg tablet (Boniva) 150 mg PO MONTHLY 06/04/22 09/18/22 prednisone 1 mg tablet 4 mg PO DAILY 06/04/22 09/18/22 Previous Rx's Medication Instructions Recorded ondansetron 4 mg disintegrating 4 mg PO Q6H PRN nausea and 02/19/21 tablet vomiting #12 tabs Portable Oxygen #1 ea 09/11/21 furosemide 40 mg tablet 80 mg PO DAILY #180 tabs 10/08/21 diltiazem HCl 240 mg capsule,24 240 mg PO DAILY #90 caps 12/27/21 hr,extended release spironolactone 25 mg tablet 25 mg PO QAM #90 tabs 12/27/21 lorazepam 0.5 mg tablet 0.5 mg PO DAILY PRN anxiety #30 02/24/22 tabs diclofenac sodium 75 mg 75 mg PO BID #180 tabs 05/13/22 tablet,delayed release losartan 100 mg tablet 100 mg PO QAM #90 tabs 05/15/22 gabapentin 400 mg capsule 400 mg PO TID #270 caps 07/29/22 mycophenolate mofetil 250 mg 500 mg PO BID #360 caps 08/06/22 capsule empagliflozin 25 mg tablet 25 mg PO DAILY #90 tabs 08/18/22 levothyroxine 175 mcg tablet 175 mcg PO .COMPLEX #90 tabs 08/18/22 naltrexone 50 mg tablet 25 mg PO DAILY #45 tabs 08/25/22 cephalexin 500 mg capsule 500 mg PO Q6H 10 days #40 caps 09/15/22 sulfamethoxazole 800 1 tab PO BID #20 tabs 09/15/22 mg-trimethoprim 160 mg tablet (Bactrim DS) ondansetron 8 mg disintegrating 8 mg PO Q8H PRN nausea and 09/17/22 tablet vomiting #30 tabs Results & Data (ED) Vital Signs Vital Signs - 24 hr 09/18/22 11:48 09/18/22 11:58 09/18/22 11:56 Temperature 36.5 C Temperature Source Temporal Artery Scan Pulse Rate 90 84 Pulse Rate [Finger] Pulse Rate from SpO2 Sensor Pulse Rhythm Regular Pulse Rhythm [Finger] Respiratory Rate 20 Respiratory Effort / Characteristics Non-Labored Spontaneous Respiratory Depth Normal Blood Pressure 137/99 141/83 H Blood Pressure [Left Arm] Blood Pressure Mean 111 104 Blood Pressure Mean [Left Arm] Pulse Oximetry 97 Oxygen Delivery Method Room Air Sepsis Recent Fever Within 48 Hours No Sepsis New/Unexplained Change in Mental Status No Sepsis Action Taken by Nursing No Action Required 09/18/22 11:56 09/18/22 12:00 09/18/22 12:01 Temperature Temperature Source Pulse Rate 86 90 Pulse Rate [Finger] Pulse Rate from SpO2 Sensor 83 Pulse Rhythm Pulse Rhythm [Finger] Respiratory Rate 19 30 H Respiratory Effort / Characteristics Respiratory Depth Blood Pressure 110/88 Blood Pressure [Left Arm] Blood Pressure Mean 91 Blood Pressure Mean [Left Arm] Pulse Oximetry 97 Oxygen Delivery Method Sepsis Recent Fever Within 48 Hours Sepsis New/Unexplained Change in Mental Status Sepsis Action Taken by Nursing 09/18/22 12:01 09/18/22 12:15 09/18/22 12:15 Temperature Temperature Source Pulse Rate 91 H 83 Pulse Rate [Finger] Pulse Rate from SpO2 Sensor 91 H 84 Pulse Rhythm Pulse Rhythm [Finger] Respiratory Rate 18 14 Respiratory Effort / Characteristics Respiratory Depth Blood Pressure 127/90 Blood Pressure [Left Arm] Blood Pressure Mean 102 Blood Pressure Mean [Left Arm] Pulse Oximetry 98 93 Oxygen Delivery Method Sepsis Recent Fever Within 48 Hours Sepsis New/Unexplained Change in Mental Status Sepsis Action Taken by Nursing 09/18/22 12:30 09/18/22 12:30 09/18/22 12:46 Temperature Temperature Source Pulse Rate 75 Pulse Rate [Finger] Pulse Rate from SpO2 Sensor 77 Pulse Rhythm Pulse Rhythm [Finger] Respiratory Rate 16 Respiratory Effort / Characteristics Respiratory Depth Blood Pressure 128/77 136/78 Blood Pressure [Left Arm] Blood Pressure Mean 90 90 Blood Pressure Mean [Left Arm] Pulse Oximetry 93 Oxygen Delivery Method Sepsis Recent Fever Within 48 Hours Sepsis New/Unexplained Change in Mental Status Sepsis Action Taken by Nursing 09/18/22 12:46 09/18/22 13:00 09/18/22 13:00 Temperature Temperature Source Pulse Rate 82 80 Pulse Rate [Finger] Pulse Rate from SpO2 Sensor 82 80 Pulse Rhythm Pulse Rhythm [Finger] Respiratory Rate 19 17 Respiratory Effort / Characteristics Respiratory Depth Blood Pressure 124/80 Blood Pressure [Left Arm] Blood Pressure Mean 90 Blood Pressure Mean [Left Arm] Pulse Oximetry 90 92 Oxygen Delivery Method Sepsis Recent Fever Within 48 Hours Sepsis New/Unexplained Change in Mental Status Sepsis Action Taken by Nursing 09/18/22 13:16 09/18/22 13:16 09/18/22 13:30 Temperature Temperature Source Pulse Rate 77 Pulse Rate [Finger] Pulse Rate from SpO2 Sensor 77 Pulse Rhythm Pulse Rhythm [Finger] Respiratory Rate 12 Respiratory Effort / Characteristics Respiratory Depth Blood Pressure 137/103 H 120/94 Blood Pressure [Left Arm] Blood Pressure Mean 105 100 Blood Pressure Mean [Left Arm] Pulse Oximetry 96 Oxygen Delivery Method Sepsis Recent Fever Within 48 Hours Sepsis New/Unexplained Change in Mental Status Sepsis Action Taken by Nursing 09/18/22 13:30 09/18/22 13:46 09/18/22 13:46 Temperature Temperature Source Pulse Rate 77 80 Pulse Rate [Finger] Pulse Rate from SpO2 Sensor 78 79 Pulse Rhythm Pulse Rhythm [Finger] Respiratory Rate 18 16 Respiratory Effort / Characteristics Respiratory Depth Blood Pressure 147/86 H Blood Pressure [Left Arm] Blood Pressure Mean 89 Blood Pressure Mean [Left Arm] Pulse Oximetry 95 95 Oxygen Delivery Method Sepsis Recent Fever Within 48 Hours Sepsis New/Unexplained Change in Mental Status Sepsis Action Taken by Nursing 09/18/22 14:00 09/18/22 15:23 09/18/22 15:24 Temperature Temperature Source Pulse Rate 81 85 83 Pulse Rate [Finger] Pulse Rate from SpO2 Sensor 83 Pulse Rhythm Pulse Rhythm [Finger] Respiratory Rate 22 18 17 Respiratory Effort / Characteristics Respiratory Depth Blood Pressure Blood Pressure [Left Arm] Blood Pressure Mean Blood Pressure Mean [Left Arm] Pulse Oximetry 93 Oxygen Delivery Method Sepsis Recent Fever Within 48 Hours Sepsis New/Unexplained Change in Mental Status Sepsis Action Taken by Nursing 09/18/22 15:24 09/18/22 15:30 09/18/22 15:30 Temperature Temperature Source Pulse Rate 80 Pulse Rate [Finger] Pulse Rate from SpO2 Sensor 80 Pulse Rhythm Pulse Rhythm [Finger] Respiratory Rate 16 Respiratory Effort / Characteristics Respiratory Depth Blood Pressure 124/66 124/75 Blood Pressure [Left Arm] Blood Pressure Mean 92 103 Blood Pressure Mean [Left Arm] Pulse Oximetry 95 Oxygen Delivery Method Sepsis Recent Fever Within 48 Hours Sepsis New/Unexplained Change in Mental Status Sepsis Action Taken by Nursing 09/18/22 15:55 09/18/22 16:00 09/18/22 16:00 Temperature Temperature Source Pulse Rate 87 81 Pulse Rate [Finger] Pulse Rate from SpO2 Sensor 81 Pulse Rhythm Pulse Rhythm [Finger] Respiratory Rate 18 Respiratory Effort / Characteristics Respiratory Depth Blood Pressure 130/73 Blood Pressure [Left Arm] Blood Pressure Mean 100 Blood Pressure Mean [Left Arm] Pulse Oximetry 99 Oxygen Delivery Method Sepsis Recent Fever Within 48 Hours Sepsis New/Unexplained Change in Mental Status Sepsis Action Taken by Nursing 09/18/22 16:15 09/18/22 16:15 09/18/22 16:30 Temperature Temperature Source Pulse Rate 78 Pulse Rate [Finger] Pulse Rate from SpO2 Sensor 80 Pulse Rhythm Pulse Rhythm [Finger] Respiratory Rate 16 Respiratory Effort / Characteristics Respiratory Depth Blood Pressure 121/75 113/72 Blood Pressure [Left Arm] Blood Pressure Mean 78 97 Blood Pressure Mean [Left Arm] Pulse Oximetry 95 Oxygen Delivery Method Sepsis Recent Fever Within 48 Hours Sepsis New/Unexplained Change in Mental Status Sepsis Action Taken by Nursing 09/18/22 16:30 09/18/22 16:45 09/18/22 16:45 Temperature Temperature Source Pulse Rate 84 85 Pulse Rate [Finger] Pulse Rate from SpO2 Sensor 83 Pulse Rhythm Pulse Rhythm [Finger] Respiratory Rate 18 21 Respiratory Effort / Characteristics Respiratory Depth Blood Pressure 109/76 Blood Pressure [Left Arm] Blood Pressure Mean 89 Blood Pressure Mean [Left Arm] Pulse Oximetry 93 Oxygen Delivery Method Sepsis Recent Fever Within 48 Hours Sepsis New/Unexplained Change in Mental Status Sepsis Action Taken by Nursing 09/18/22 17:00 09/18/22 18:00 09/18/22 17:15 Temperature Temperature Source Pulse Rate 84 Pulse Rate [Finger] 84 Pulse Rate from SpO2 Sensor 83 Pulse Rhythm Pulse Rhythm [Finger] Regular Respiratory Rate 17 20 Respiratory Effort / Characteristics Non-Labored Respiratory Depth Normal Blood Pressure 120/68 Blood Pressure [Left Arm] 91/62 L Blood Pressure Mean 77 Blood Pressure Mean [Left Arm] 71 Pulse Oximetry 90 92 Oxygen Delivery Method Room Air Sepsis Recent Fever Within 48 Hours Sepsis New/Unexplained Change in Mental Status Sepsis Action Taken by Nursing 09/18/22 17:15 09/18/22 17:32 09/18/22 17:45 Temperature Temperature Source Pulse Rate 85 109 H Pulse Rate [Finger] Pulse Rate from SpO2 Sensor 83 Pulse Rhythm Pulse Rhythm [Finger] Respiratory Rate 21 21 Respiratory Effort / Characteristics Respiratory Depth Blood Pressure 102/59 L Blood Pressure [Left Arm] Blood Pressure Mean 73 Blood Pressure Mean [Left Arm] Pulse Oximetry 92 Oxygen Delivery Method Sepsis Recent Fever Within 48 Hours Sepsis New/Unexplained Change in Mental Status Sepsis Action Taken by Nursing 09/18/22 17:45 09/18/22 18:00 09/18/22 18:01 Temperature Temperature Source Pulse Rate 78 83 Pulse Rate [Finger] Pulse Rate from SpO2 Sensor 78 Pulse Rhythm Pulse Rhythm [Finger] Respiratory Rate 16 21 Respiratory Effort / Characteristics Respiratory Depth Blood Pressure 82/67 L Blood Pressure [Left Arm] Blood Pressure Mean 73 Blood Pressure Mean [Left Arm] Pulse Oximetry 92 Oxygen Delivery Method Sepsis Recent Fever Within 48 Hours Sepsis New/Unexplained Change in Mental Status Sepsis Action Taken by Nursing 09/18/22 18:01 09/18/22 18:15 09/18/22 18:15 Temperature Temperature Source Pulse Rate 83 82 Pulse Rate [Finger] Pulse Rate from SpO2 Sensor 83 82 Pulse Rhythm Pulse Rhythm [Finger] Respiratory Rate 20 16 Respiratory Effort / Characteristics Respiratory Depth Blood Pressure 97/62 L Blood Pressure [Left Arm] Blood Pressure Mean 71 Blood Pressure Mean [Left Arm] Pulse Oximetry 92 93 Oxygen Delivery Method Sepsis Recent Fever Within 48 Hours Sepsis New/Unexplained Change in Mental Status Sepsis Action Taken by Nursing 09/18/22 18:30 09/18/22 18:30 09/18/22 18:45 Temperature Temperature Source Pulse Rate 82 85 Pulse Rate [Finger] Pulse Rate from SpO2 Sensor 82 84 Pulse Rhythm Pulse Rhythm [Finger] Respiratory Rate 18 19 Respiratory Effort / Characteristics Respiratory Depth Blood Pressure 103/71 Blood Pressure [Left Arm] Blood Pressure Mean 82 Blood Pressure Mean [Left Arm] Pulse Oximetry 94 93 Oxygen Delivery Method Sepsis Recent Fever Within 48 Hours Sepsis New/Unexplained Change in Mental Status Sepsis Action Taken by Nursing 09/18/22 18:45 Temperature Temperature Source Pulse Rate Pulse Rate [Finger] Pulse Rate from SpO2 Sensor Pulse Rhythm Pulse Rhythm [Finger] Respiratory Rate Respiratory Effort / Characteristics Respiratory Depth Blood Pressure 101/77 Blood Pressure [Left Arm] Blood Pressure Mean 88 Blood Pressure Mean [Left Arm] Pulse Oximetry Oxygen Delivery Method Sepsis Recent Fever Within 48 Hours Sepsis New/Unexplained Change in Mental Status Sepsis Action Taken by [facility] Medications Current Medication List: was personally reviewed by me Laboratory Data Attestation: I reviewed the patient's lab results. 09/18/22 12:24 09/18/22 14:03 Lab Results 09/18/22 09/18/22 09/18/22 Range/Units 12:24 12:24 12:24 WBC 6.90 (4.8-10.8) K/ul RBC 4.45 (4.20-5.40) M/uL Hgb 14.3 (12.0-16.0) g/dl Hct 43.2 (37.0-47.0) % MCV 97.1 (80.0-100.0) fL MCH 32.1 (25.0-34.0) pg MCHC 33.1 (32.0-36.0) g/dL RDW Std Deviation 54.8 H (36.4-46.3) fL RDW Coeff of Jose 15.2 H (11.5-14.5) % Plt Count 267 (130-400) K/uL MPV 11.3 (9.4-12.4) fL Immature Gran % (Auto) 1.2 % Neut % (Auto) 72.2 % Lymph % (Auto) 16.8 % [place] % (Auto) 5.2 % Eos % (Auto) 3.3 % Baso % (Auto) 1.3 % Neut # (Auto) 4.98 (1.40-6.50) K/uL Lymph # (Auto) 1.16 L (1.2-3.4) K/uL [place] # (Auto) 0.36 (0.11-0.59) K/uL Eos # (Auto) 0.23 (0-0.50) K/uL Baso # (Auto) 0.09 (0-0.2) K/uL Immature Gran # (Auto) 0.08 (0.01-0.20) K/uL ESR 95 H (0-30) mm/hr Sodium Cancelled Potassium Cancelled Chloride Cancelled Carbon Dioxide Cancelled Anion Gap Cancelled BUN Cancelled Creatinine Cancelled Est Cr Clr Drug Dosing Cancelled Est GFR ( Amer) Cancelled Est GFR (Non-Af Amer) Cancelled BUN/Creatinine Ratio Cancelled Glucose Cancelled Lactate (0.4-2.0) mmol/L Calcium Cancelled Total Bilirubin Cancelled AST Cancelled ALT Cancelled Alkaline Phosphatase Cancelled Troponin I High Sens Cancelled C-Reactive Protein Cancelled Total Protein Cancelled Albumin Cancelled Globulin Cancelled Albumin/Globulin Ratio Cancelled Lipase Cancelled Procalcitonin SARS-CoV-2, RNA, NAAT (NEGATIVE) 09/18/22 09/18/22 09/18/22 Range/Units 12:24 12:24 14:03 WBC (4.8-10.8) K/ul RBC (4.20-5.40) M/uL Hgb (12.0-16.0) g/dl Hct (37.0-47.0) % MCV (80.0-100.0) fL MCH (25.0-34.0) pg MCHC (32.0-36.0) g/dL RDW Std Deviation (36.4-46.3) fL RDW Coeff of Jose (11.5-14.5) % Plt Count (130-400) K/uL MPV (9.4-12.4) fL Immature Gran % (Auto) % Neut % (Auto) % Lymph % (Auto) % [place] % (Auto) % Eos % (Auto) % Baso % (Auto) % Neut # (Auto) (1.40-6.50) K/uL Lymph # (Auto) (1.2-3.4) K/uL [place] # (Auto) (0.11-0.59) K/uL Eos # (Auto) (0-0.50) K/uL Baso # (Auto) (0-0.2) K/uL Immature Gran # (Auto) (0.01-0.20) K/uL ESR (0-30) mm/hr Sodium Potassium Chloride Carbon Dioxide Anion Gap BUN Creatinine Est Cr Clr Drug Dosing Est GFR ( Amer) Est GFR (Non-Af Amer) BUN/Creatinine Ratio Glucose Lactate 2.1 H* (0.4-2.0) mmol/L Calcium Total Bilirubin AST ALT Alkaline Phosphatase Troponin I High Sens C-Reactive Protein Total Protein Albumin Globulin Albumin/Globulin Ratio Lipase Procalcitonin Cancelled 0.07 SARS-CoV-2, RNA, NAAT (NEGATIVE) 09/18/22 09/18/22 09/18/22 Range/Units 14:03 14:05 15:25 WBC (4.8-10.8) K/ul RBC (4.20-5.40) M/uL Hgb (12.0-16.0) g/dl Hct (37.0-47.0) % MCV (80.0-100.0) fL MCH (25.0-34.0) pg MCHC (32.0-36.0) g/dL RDW Std Deviation (36.4-46.3) fL RDW Coeff of Jose (11.5-14.5) % Plt Count (130-400) K/uL MPV (9.4-12.4) fL Immature Gran % (Auto) % Neut % (Auto) % Lymph % (Auto) % [place] % (Auto) % Eos % (Auto) % Baso % (Auto) % Neut # (Auto) (1.40-6.50) K/uL Lymph # (Auto) (1.2-3.4) K/uL [place] # (Auto) (0.11-0.59) K/uL Eos # (Auto) (0-0.50) K/uL Baso # (Auto) (0-0.2) K/uL Immature Gran # (Auto) (0.01-0.20) K/uL ESR (0-30) mm/hr Sodium 139 Potassium 4.2 Chloride 107 Carbon Dioxide 23 Anion Gap 9 BUN 11 Creatinine 1.02 Est Cr Clr Drug Dosing 73.0 Est GFR ( Amer) 70.7 Est GFR (Non-Af Amer) 61.0 BUN/Creatinine Ratio 10.8 Glucose 87 Lactate 1.7 (0.4-2.0) mmol/L Calcium 9.1 Total Bilirubin 0.3 AST 15 ALT 14 Alkaline Phosphatase 95 Troponin I High Sens 4.0 C-Reactive Protein 3.90 H Total Protein 7.6 Albumin 3.7 Globulin 3.9 Albumin/Globulin Ratio 0.9 Lipase 41 Procalcitonin SARS-CoV-2, RNA, NAAT NEGATIVE (NEGATIVE) Administered Medications Sodium Chloride (Nss 1000ml) 1,000 mls @ 125 mls/hr IV .Q8H STA Stop: 09/18/22 20:03 Last Admin: 09/18/22 12:17 Dose: 125 mls/hr Documented By: ADRYAN Discontinued Medications Al Hydrox/Mg Hydrox/Simethicone (Aluminum/Magnesium Susp 30 Ml Udc) 30 ml PO NOW STA Stop: 09/18/22 15:27 Last Admin: 09/18/22 15:39 Dose: 30 ml Documented By: ADRYAN Ceftriaxone Sodium (Rocephin) 2,000 mg in 70 mls @ 140 mls/hr IV NOW STA Stop: 09/18/22 12:33 Last Infusion: 09/18/22 13:24 Dose: 0 mls/hr Documented By: Admin: 09/18/22 12:17 Dose: 140 mls/hr Documented By: ADRYAN Daptomycin 300 mg/ Syringe 6 mls @ 3 mls/min IV NOW ONE; Protocol Stop: 09/18/22 12:26 Last Admin: 09/18/22 13:22 Dose: 3 mls/min Documented By: MELISSA Promethazine HCl (Phenergan) 12.5 mg in 50.5 mls @ 202 mls/hr IV NOW STA Stop: 09/18/22 15:40 Last Infusion: 09/18/22 16:09 Dose: 0 mls/hr Documented By: Admin: 09/18/22 15:39 Dose: 202 mls/hr Documented By: ADRYAN Ondansetron HCl (Ondansetron Inj 2 Mg/Ml 2 Ml Vial) 4 mg IV NOW STA Stop: 09/18/22 12:05 Last Admin: 09/18/22 12:17 Dose: 4 mg Documented By: ADRYAN Imaging Data Attestation: I personally reviewed and interpreted this imaging study as follows: My Impression: Ultrasound of the right thigh was obtained in the emergency department. My interpretation is no definite fluid collection, final report below. Radiologist's Impression: Vascular Ultrasound 09/18/22 12:06 RIGHT THIGH ULTRASOUND CLINICAL HISTORY: Right thigh swelling. Recent right thigh abscess drainage. COMPARISON STUDY: No previous studies for comparison. TECHNIQUE: Sonography of the right thigh was performed. FINDINGS: A 5.5 x 2 x 4.3 cm edematous focus within the right thigh is noted. This may reflect cellulitis. No large fluid collection is noted. There is a elongated 1.4 x 1.2 x 1 cm hypoechoic right thigh abnormality. IMPRESSION: 1. 5.5 x 2 x 4.3 cm edematous focus within the right thigh which favors cellulitis. 2. No large/drainable fluid collection. Tiny 1.4 x 1.2 x 1 cm hypoechoic right thigh abnormality. This could reflect a residual tiny fluid collection or draining tract. ACT 112: Negative or not required by law. Electronically signed by: Gee Bagley M.D. 09/18/2022 3:14 PM Discharge Plan Visit Data Chief Complaint: Skin Problem Stated Complaint: ABSCESS ON R THIGH, NAUSEA, SEEN IN ED ON 09/15 ED Provider: Ruperto Gandhi Discharge Problem: Abscess of right thigh, Cellulitis of right thigh Patient Disposition: Admitted As Inpatient Forms Stand Alone Forms: My [facility] Prescriptions Prescriptions: No Action cyclobenzaprine 10 mg tablet 10 mg PO TID PRN (Reason: Muscle Spasm) fexofenadine [Silvia Allergy] 180 mg tablet 180 mg PO HS prednisone 1 mg tablet 4 mg PO DAILY ibandronate [Boniva] 150 mg tablet 150 mg PO MONTHLY (DME) Portable Oxygen Misc See Rx Instructions .Route Qty: 1 0RF Rx Instructions: HOME FILL UP SYSTEM AND LITER FLOW, 4L continuous via nasal canula, with Portability and conserving device diltiazem HCl 240 mg capsule,extended release 24 hr 240 mg PO DAILY Qty: 90 3RF spironolactone 25 mg tablet 25 mg PO QAM Qty: 90 3RF diclofenac sodium 75 mg tablet,delayed release (DR/EC) 75 mg PO BID Qty: 180 3RF losartan 100 mg tablet 100 mg PO QAM Qty: 90 3RF gabapentin 400 mg capsule 400 mg PO TID Qty: 270 3RF mycophenolate mofetil 250 mg capsule 500 mg PO BID Qty: 360 3RF empagliflozin 25 mg tablet 25 mg PO DAILY Qty: 90 3RF levothyroxine 175 mcg tablet 175 mcg PO .COMPLEX Qty: 90 3RF Rx Instructions: 175 mcg orally One tab 6 days per week; ondansetron 8 mg tablet,disintegrating 8 mg PO Q8H PRN (Reason: nausea and vomiting) Qty: 30 1RF esomeprazole magnesium [Nexium 24HR] 20 mg capsule,delayed release(DR/EC) 20 mg PO DAILY Humira 40 mg/0.8 mL syringe kit 40 mg subcut Q14D furosemide 40 mg tablet 80 mg PO DAILY Qty: 180 3RF naltrexone 50 mg tablet 25 mg PO DAILY Qty: 45 1RF lorazepam 0.5 mg tablet 0.5 mg PO DAILY PRN (Reason: anxiety) Qty: 30 2RF calcium carbonate-vitamin D3 500 mg(1,250mg) -125 unit Tablet 1 tab PO QAM albuterol sulfate 90 mcg/actuation Hfa Aerosol Inhaler 1 inh INHALATION QID PRN (Reason: Wheezing) hydroxychloroquine [Plaquenil] 200 mg Tablet 200 mg PO BID cephalexin 500 mg capsule 500 mg PO Q6H 10 Days Qty: 40 0RF sulfamethoxazole-trimethoprim [Bactrim DS] 800-160 mg tablet 1 tab PO BID Qty: 20 0RF promethazine 25 mg tablet 25 mg PO DIRECTED PRN (Reason: NAUSEA/VOMITING) ondansetron 4 mg tablet,disintegrating 4 mg PO Q6H PRN (Reason: nausea and vomiting) Qty: 12 0RF Referrals Referrals: Tim Hinton MD [Primary Care Provider] -
[2022-09-18] MEDS ORDERED: DAPTOmycin 300 MG in SYRINGE 0 ML IV ONE (12:25)
[2022-09-18 13:15] LABS: Basophils # (auto) 0.09 K/uL (0-0.2); Basophils % (auto) 1.3 %; Eosinophils # (auto) 0.23 K/uL (0-0.50); Eosinophils % (auto) 3.3 %; Hematocrit (blood only) 43.2 % (37.0-47.0); Hemoglobin 14.3 g/dl (12.0-16.0); Immature Granulocytes # (auto) 0.08 K/uL (0.01-0.20); Immature Granulocytes % (auto) 1.2 %; Lymphocytes # (auto) 1.16 K/uL (1.2-3.4); Lymphocytes % (auto) 16.8 %; Mean Corpuscular Hemoglobin 32.1 pg (25.0-34.0); Mean Corpuscular Hgb Conc 33.1 g/dL (32.0-36.0); Mean Corpuscular Volume 97.1 fL (80.0-100.0); Mean Platelet Volume 11.3 fL (9.4-12.4); Monocytes # (auto) 0.36 K/uL (0.11-0.59); Monocytes % (auto) 5.2 %; Neutrophils # (auto) 4.98 K/uL (1.40-6.50); Neutrophils % (auto) 72.2 %; Platelet Count 267 K/uL (130-400); RDW Coefficient of Variation 15.2 % (11.5-14.5); RDW Standard Deviation 54.8 fL (36.4-46.3); Red Blood Count 4.45 M/uL (4.20-5.40)
[2022-09-18 14:40] LABS: Albumin Globulin Ratio 0.9 (0.9-2); Albumin Level 3.7 gm/dl (3.4-5.0); BUN Creatinine Ratio 10.8 (10-20); Bilirubin,Total 0.3 mg/dl (0.2-1.0); C Reactive Protein 3.9 mg/dl (0-0.5); Calcium 9.1 mg/dl (8.6-10.3); Est GFR (African American) 70.7 ml/min; Globulin 3.9 gm/dl (2.5-4.0); Potassium 4.2 mmol/L (3.5-5.1); Total Protein 7.6 gm/dl (6.0-8.3)
--- NOTE | 2022-09-18 15:16 | Ultrasound Report ---
RIGHT THIGH ULTRASOUND CLINICAL HISTORY: Right thigh swelling. Recent right thigh abscess drainage. COMPARISON STUDY: No previous studies for comparison. TECHNIQUE: Sonography of the right thigh was performed. FINDINGS: A 5.5 x 2 x 4.3 cm edematous focus within the right thigh is noted. This may reflect cellul itis. No large fluid collection is noted. There is a elongated 1.4 x 1.2 x 1 cm hypoechoic right thig h abnormality. IMPRESSION: 1. 5.5 x 2 x 4.3 cm edematous focus within the right thigh which favors cellulitis. 2. No large/drainable fluid collection. Tiny 1.4 x 1.2 x 1 cm hypoechoic right thigh abnormality. Thi s could reflect a residual tiny fluid collection or draining tract. ACT 112: Negative or not required by law. Electronically signed by: Gee Bagley M.D. 09/18/2022 3:14 PM
[2022-09-18] MEDS ORDERED: ALUMINUM/MAGNESIUM SUSP 30 ML UDC PO STA (15:26)
[2022-09-18] MEDS ORDERED: PROMETHAZINE 12.5 MG/50.5 ML BAG IV STA (15:26)
--- NOTE | 2022-09-18 16:02 | History & Physical Report ---
Date of Service September 18, 2022 Assessment & Plan (1) Cellulitis: Plan: Cellulitis Last seen 09/15/2022 and had I&D performed of the abscess while in the ER. Right thigh culture was positive for MRSA with clindamycin and tetracycline resistance. Daptomycin, rifampin, Bactrim, and vancomycin sensitive Was discharged on Bactrim/Keflex No leukocytosis on admission, this has resolved from 14.643 days ago ESR uptrending at 95 from 56 Creatinine normal at 1.02, potassium normal Lactate is normal CRP is elevated at 3.9 Procalcitonin is normal Patient is afebrile COVID pending Ultrasound: 1. 5.5 x 2 x 4.3 cm edematous focus within the right thigh which favors cellulitis. 2. No large/drainable fluid collection. Tiny 1.4 x 1.2 x 1 cm hypoechoic right thigh abnormality. This could reflect a residual tiny fluid collection or draining tract. Converted to daptomycin, will continue this for now. Suspect patient has gastritis medicamentosa from multiple antibiotic courses. No hemoglobin instability/melena Patient has had multiple recurrent right lower extremity abscesses and infections in the preceding year. Suspect this is due to immune suppression in the setting of CellCept, prednisone, and Humira use. Can follow-up with virtual ID consult for long-term recommendations; at this time daptomycin is reasonable for current infection which appears to be gradually improving. Wound care consulted, continue packing Suspected gastritis medicamentosa In the setting of multiple antibiotic courses and recent Keflex/Bactrim use Patient with stomach upset and pain, poor p.o. intake, nausea Has not been able to tolerate pills since this past Thursday other than her antibiotics Antibiotics switched to IV daptomycin Continue Pepcid, Protonix, GI cocktail, Zofran Chronic diastolic CHF Continue Lasix, losartan, spironolactone No signs of overt volume overload at time of admission Hypertension Continue antihypertensives as above Hypothyroidism Continue Synthroid ILD/pulmonary fibrosis/pulmonary hypertension with hypoxia and exertional dyspnea, rheumatoid arthritis Suspected to have predominantly right heart failure rather than ILD/fibrosis CellCept discontinued and then subsequently started on pulmonaryfollow-up for suspected ILD related to RA Continued on Lasix with notable improvement on this in the past Continue pulmon She is on hydroxychloroquine, mycophenolate, Humira, and daily 4 mg prednisone Low-dose prednisone continued, likely has some underlying element of AI Humira, CellCept temporarily held in the setting of acute infection Celiac EGD 2020 with villous blunting and positive IgA Gluten-free diet Morbid obesity Outpatient continued chronic weight management [place]LVE[place] Suspected MGUS Follows with oncology, no obvious progression to MM. Continue outpatient follow-up Prediabetes A1c 5.4% 2021 Follow [facility] DVT prophylaxis: Lovenox Diet: Low-salt, gluten-free Disposition: Medical/surgical CODE STATUS: Full code (2) Chronic diastolic congestive heart failure: (3) Hyperlipidemia: (4) Hypoventilation syndrome: (5) Hypoxemia: (6) Interstitial lung disease: (7) Lumbar disc herniation: (8) Rheumatoid arthritis: History of Present Illness Primary Care Provider: Tim Hinton MD Ashtyn is a 56-year-old female with a past medical history of SYLVESTER, cellulitis, asthma, GERD, hypogammaglobulinemia, lumbar disc disease, elevated tTG-IgA, pulmonary hypertension, pre-DM Ashtyn is seen at the bedside. Reports in the last 4-5 months has had trouble with groin and leg abscesses. Has gotten lumps with purulent discharge. Lsat 2 had purlent material expressed with palpation, but then went away without antibiotics. 1x on the buttock as well which then improved with keflex/bactrim x4 weeks when then improved it. NO culture at the time. End of July went to urgent care [facility] [place] abscess on the labia which drained spontaneously and which culture was positive for MRSA sensitive to doxy/bactrim. Took bactrim and clindamycin gel. This past Thursday had another abscess, was seen in ER thursday night for R leg redness and pain suspicious for another abscess and was placed on doxy. Has it opened and drained in ER and was d/richard on keflex/bactrim. Has been taking keflex/bactrim sinc eER visit Seen in ER, 'feels horrible stomach is upset and I cant keep antibiotics down.' Has mostly nausea and mild pain. Leg actually seems to get better, packing is slowly coming out and i sless red but still hurts. 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 No chest pain or chest pain +abdominal fullness + nausea. -vomiting No diarrhea. +constipation Has not taken lasix. No change in SoB. On O2 2-4L qHS chronically bleed into CPAP at [id number]. Cellcept- last dose Humira: Took last , takes every other week Pred daily 4mg, last took Sat Hydroxychloroquine- Sat Medical History: Reviewed Medications: Reviewed Surgical History: Reviewed Family history: Reviewed Allergies: Reviewed Social History: Reviewed Code Status: Full Allergies Allergy/AdvReac Type Severity Reaction Status Date / Time Penicillins Allergy Unknown Unknown Verified 09/18/22 10:37 reaction (see comment) Home Medications Medication Instructions Recorded Confirmed Type cyclobenzaprine 10 mg tablet 10 mg PO TID PRN Muscle Spasm 11/25/17 09/18/22 History fexofenadine 180 mg tablet 180 mg PO HS 11/25/17 09/18/22 History (Silvia Allergy) hydroxychloroquine 200 mg tablet 200 mg PO BID 04/09/18 09/18/22 History (Plaquenil) albuterol sulfate 90 mcg/actuation 1 inh inhalation QID PRN Wheezing 04/05/20 09/18/22 History aerosol inhaler calcium carbonate 500 mg-vitamin 1 tab PO QAM 04/05/20 09/18/22 History D3 3.125 mcg (125 unit) tablet promethazine 25 mg tablet 25 mg PO DIRECTED PRN 02/18/21 09/18/22 History NAUSEA/VOMITING ondansetron 4 mg disintegrating 4 mg PO Q6H PRN nausea and 02/19/21 09/18/22 Rx tablet vomiting #12 tabs adalimumab 40 mg/0.8 mL 40 mg subcut Q14D 09/02/21 09/18/22 History subcutaneous syringe kit (Humira) Portable Oxygen #1 ea 09/11/21 08/25/22 Rx furosemide 40 mg tablet 80 mg PO DAILY #180 tabs 10/08/21 09/18/22 Rx diltiazem HCl 240 mg capsule,24 240 mg PO DAILY #90 caps 12/27/21 09/18/22 Rx hr,extended release spironolactone 25 mg tablet 25 mg PO QAM #90 tabs 12/27/21 09/18/22 Rx esomeprazole magnesium 20 mg 20 mg PO DAILY 12/31/21 09/18/22 History capsule,delayed release (Nexium 24HR) lorazepam 0.5 mg tablet 0.5 mg PO DAILY PRN anxiety #30 02/24/22 09/18/22 Rx tabs diclofenac sodium 75 mg 75 mg PO BID #180 tabs 05/13/22 09/18/22 Rx tablet,delayed release losartan 100 mg tablet 100 mg PO QAM #90 tabs 05/15/22 09/18/22 Rx ibandronate 150 mg tablet (Boniva) 150 mg PO MONTHLY 06/04/22 09/18/22 History prednisone 1 mg tablet 4 mg PO DAILY 06/04/22 09/18/22 History gabapentin 400 mg capsule 400 mg PO TID #270 caps 07/29/22 09/18/22 Rx mycophenolate mofetil 250 mg 500 mg PO BID #360 caps 08/06/22 09/18/22 Rx capsule empagliflozin 25 mg tablet 25 mg PO DAILY #90 tabs 08/18/22 09/18/22 Rx levothyroxine 175 mcg tablet 175 mcg PO .COMPLEX #90 tabs 08/18/22 09/18/22 Rx naltrexone 50 mg tablet 25 mg PO DAILY #45 tabs 08/25/22 09/18/22 Rx cephalexin 500 mg capsule 500 mg PO Q6H 10 days #40 caps 09/15/22 09/18/22 Rx sulfamethoxazole 800 1 tab PO BID #20 tabs 09/15/22 09/18/22 Rx mg-trimethoprim 160 mg tablet (Bactrim DS) ondansetron 8 mg disintegrating 8 mg PO Q8H PRN nausea and 09/17/22 09/18/22 Rx tablet vomiting #30 tabs Past Med/Surg History Medical History Asthma rare inhaler use Bloating Chronic diastolic congestive heart failure follows with [facility] (Dr. Astudillo ) Depression Diarrhea Edema "Mild" B/L LE Gastroesophageal reflux disease Hidradenitis suppurativa Hyperlipidemia per records, pt denies Hypertension Hypothyroidism Hypoventilation syndrome Interstitial lung disease Lumbar disc herniation L5-S1 disc bulge severe left NFS Morbid obesity Osteoarthritis Prediabetes Pulmonary fibrosis Pulmonary hypertension Rheumatoid arthritis on chronic prednisone 5mg daily Rosacea Sleep apnea + nocturnal hypoxemia- CPAP + 4L HS Steroid-induced osteoporosis Surgical History History of bronchoscopy History of cardiac cath x2--04/2017, 07/2017, no stents History of cataract surgery R/L (2019) History of section History of colonoscopy History of esophagogastroduodenoscopy (EGD) History of hysterectomy History of lung surgery VATS by Dr. Cruz > 2005 History of tonsillectomy and adenoidectomy History of tooth extraction History of wisdom tooth extraction Hx laparoscopic cholecystectomy (04/16/19) Laparoscopic cholecystectomy. Dr. Arreaga 04/16/2019 Family History Mother Transient ischemic attack Thyroid disorder Hypertension Coronary heart disease Brother Rheumatoid arthritis Father Cardiac disorder Coronary heart disease Sister Asthma Allergic rhinitis Hypertension Aunt Breast cancer Ovarian cancer Sister Heart disease Rheumatoid arteritis Dementia age 82 Other No family history of adverse response to anesthesia Denies family history of Prostate cancer Colorectal cancer Social History Smoking Status: Never smoker Second Hand Exposure: Yes (as a child); Do You Dip or Chew Tobacco: No; Hx Alcohol Use: No Hx Substance Use: No Preferred Language: Ethiopian Communication Ability: Effective Hearing Ability: Normal Lab Support Service Tech Required: No Beliefs That Will Affect Care: None marital status: Current Living Situation: Spouse Current Living Situation Comment: Lives with and in laws current occupational status: disabled 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 Seatbelt Use: always Sunscreen Use: Yes Assistive Devices: CPAP and Oxygen - Continuous Review of Systems Review of Systems: All systems reviewed & are unremarkable except as noted in HPI & below Physical Exam Physical Exam: General: A&Ox3. NAD. Cooperative. HEENT: Atraumatic, normocephalic. Vision/hearing grossly intact Pulm: Diminished. CTAB A&P. -wheezes, -rales, -rhonchi. Symmetrical chest rise. No increased work of breathing. No respiratory distress. Cardiac: RRR, -mrg. Radial pulses intact and symmetrical. Abdominal: Nontender, nondistended, soft. BS present. RLE: See photo below Results & Data Results & Data Vital Signs (Past 12 Hours) Vital Signs Temp Pulse Resp BP Pulse Ox O2 Del Method 09/18/22 14:00 81 22 09/18/22 13:46 147/86 H 09/18/22 13:46 80 16 95 09/18/22 13:30 77 18 95 09/18/22 13:30 120/94 09/18/22 13:16 77 12 96 09/18/22 13:16 137/103 H 09/18/22 13:00 80 17 92 09/18/22 13:00 124/80 09/18/22 12:46 82 19 90 09/18/22 12:46 136/78 09/18/22 12:30 75 16 93 09/18/22 12:30 128/77 09/18/22 12:15 83 14 93 09/18/22 12:15 127/90 09/18/22 12:01 91 H 18 98 09/18/22 12:01 110/88 09/18/22 12:00 90 30 H 09/18/22 11:56 86 19 97 09/18/22 11:56 141/83 H 09/18/22 11:58 84 09/18/22 11:48 36.5 C 90 20 137/99 97 Room Air PG Care Time/CCT Total # of Minutes Spent Total Time Spent with Patient: Total time spent is greater than 50% in coordination of care (as documented) at patient's floor/unit and/or counseling patient: Coding Level of Care Code 36586 INT INP/OBS CARE 3/75MIN Diagnoses Cellulitis L03.115 Laterality: right Site of cellulitis: extremity Site of cellulitis of extremity: lower extremity Chronic diastolic congestive heart failure I50.32 Hyperlipidemia E78.5 Hypoventilation syndrome R06.89 Hypoxemia R09.02 Interstitial lung disease J84.9 Lumbar disc herniation M51.26 Rheumatoid arthritis M06.9 (1) Cellulitis Laterality: right Site of cellulitis: extremity Site of cellulitis of extremity: lower extremity Qualified Code(s): L03.115 - Cellulitis of right lower limb
[2022-09-18] MEDS ORDERED: ONDANSETRON 8MG OD TAB PO PRN (20:03)
[2022-09-18] MEDS ORDERED: ALBUTEROL HFA 8 GM INHALER INH PRN (20:03)
[2022-09-18] MEDS ORDERED: FAMOTIDINE 20 MG in SYRINGE 3 ML IV PRN (20:03)
[2022-09-18] MEDS ORDERED: PROMETHAZINE HCL 25 MG TAB PO PRN (20:03)
[2022-09-18] MEDS ORDERED: ONDANSETRON 4 MG OD TAB PO PRN (20:03)
[2022-09-18] MEDS ORDERED: ALUMINUM/MAGNESIUM SUSP 30 ML UDC PO PRN (20:03)
[2022-09-18] MEDS ORDERED: LORazepam 0.5 MG TAB PO PRN (20:03)
[2022-09-18] MEDS ORDERED: CYCLOBENZAPRINE HCL 10 MG TAB PO PRN (20:03)
[2022-09-18] MEDS: ONDANSETRON INJ 2 MG/ML 2 ML VIAL IV PRN (20:39)
[2022-09-18] MEDS: DICLOFENAC SODIUM 75 MG TABCR PO SCH (22:01)
[2022-09-18] MEDS: GABAPENTIN 400 MG CAP PO SCH (22:02)
[2022-09-18] MEDS: HYDROXYCHLOROQUINE SULFATE 200 MG TAB PO SCH (22:02)
[2022-09-18] MEDS: PANTOprazole 40 MG in SYRINGE 0 ML IV SCH (22:16)
[2022-09-19] MEDS: ONDANSETRON INJ 2 MG/ML 2 ML VIAL IV PRN ×2 (00:48→14:47)
[2022-09-19] MEDS: LEVOTHYROXINE SODIUM 175 MCG TABLET PO SCH (05:47)
[2022-09-19] MEDS: HYDROXYCHLOROQUINE SULFATE 200 MG TAB PO SCH ×2 (08:40→20:27)
[2022-09-19] MEDS: predniSONE 1 MG TAB PO SCH (08:40)
[2022-09-19] MEDS: NALTREXONE HCL 50 MG TAB PO SCH (08:41)
[2022-09-19] MEDS: LOSARTAN POTASSIUM 50 MG TAB PO SCH (08:43)
[2022-09-19] MEDS: GABAPENTIN 400 MG CAP PO SCH ×3 (08:44→20:26)
[2022-09-19] MEDS: dilTIAZem HCL 240 MG CAPCR PO SCH (08:44)
[2022-09-19] MEDS: CALCIUM 600MG + VIT D 400 IU TAB PO SCH (08:44)
[2022-09-19] MEDS: SPIRONOLACTONE 25 MG TAB PO SCH (08:45)
[2022-09-19] MEDS: DICLOFENAC SODIUM 75 MG TABCR PO SCH ×2 (08:52→20:27)
[2022-09-19] MEDS: PANTOprazole 40 MG in SYRINGE 0 ML IV SCH ×2 (08:53→21:40)
[2022-09-19] MEDS: DAPTOmycin 300 MG in SYRINGE 0 ML IV SCH (12:24)
--- NOTE | 2022-09-19 19:15 | Hospitalist Progress Note ---
Date of Service September 19, 2022 Assessment & Plan (1) Cellulitis: Plan: Right thigh abscess with cellulitis Last seen 09/15/2022 and had I&D performed of the abscess while in the ER. Right thigh culture was positive for MRSA with clindamycin and tetracycline resistance. Daptomycin, rifampin, Bactrim, and vancomycin sensitive Was discharged on Bactrim/Keflex No leukocytosis on admission, this has resolved from 14.643 days ago ESR uptrending at 95 from 56, CRP elevated at 3.9 Lactate mildly elevated at 2.1 and now normalized, Procalcitonin is normal Patient is afebrile Ultrasound: 1. 5.5 x 2 x 4.3 cm edematous focus within the right thigh which favors cellulitis. 2. No large/drainable fluid collection. Tiny 1.4 x 1.2 x 1 cm hypoechoic right thigh abnormality. This could reflect a residual tiny fluid collection or draining tract. Improving on daptomycin, will continue this for now. Plan to discharged home on linezolid as she had adverse GI side effects with high doses of Keflex and Bactrim Patient has had multiple recurrent right lower extremity abscesses and infections in the preceding year. Suspect this is due to immune suppression in the setting of CellCept, prednisone, and Humira use. She is also now colonized with MRSA -Start mupirocin ointment twice daily to the nurse x10 days, advised chlorhexidine soap use at home twice a week for several weeks to eradicate MRSA Wound care consulted, continue packing with Aquacel and OPTi foam over top (2) Abscess of right thigh: Plan: Above (3) Nausea & vomiting: Plan: Likely related to high doses of Keflex and Bactrim for prolonged periods Now much improved after starting Pepcid, Protonix, and receiving GI cocktail, Zofran, and Phenergan Tolerating regular diet (4) Chronic diastolic congestive heart failure: Plan: Chronic diastolic CHF Continue Lasix, losartan, spironolactone No signs of overt volume overload at time of admission (5) MRSA (methicillin resistant Staphylococcus aureus) infection: Plan: As above Eradicate with mupirocin ointment to the nares and chlorhexidine body wash which she can buy as an outpatient (6) Interstitial lung disease: Plan: ILD/pulmonary fibrosis/pulmonary hypertension with hypoxia and exertional dyspnea, rheumatoid arthritis Suspected to have predominantly right heart failure rather than ILD/fibrosis CellCept started by pulmonaryfollow-up for suspected ILD related to RA Continued on Lasix with notable improvement on this in the past She is on hydroxychloroquine, mycophenolate, Humira, and daily 4 mg prednisone Humira, CellCept temporarily held in the setting of acute infection (7) Lumbar disc herniation: Plan: Continue gabapentin (8) Rheumatoid arthritis: Plan: As above (9) Chronic steroid use: Plan: Continue current chronic dose, no need for stress dose steroids at this point (10) Hypothyroidism: Plan: TSH mildly low at 0.023 in 05/2022 Continue home levothyroxine (11) Asthma: Plan: No acute issues Celiac EGD 2020 with villous blunting and positive IgA Gluten-free diet Morbid obesity Outpatient continued chronic weight management [place] Suspected MGUS Follows with oncology, no obvious progression to MM. Continue outpatient follow-up Prediabetes A1c 5.4% 2021 Follow [facility] Plan Disposition-improving, continues stable likely discharged home tomorrow Admission and Anticipated Discharge Date Admission Date: September 18, 2022 Anticipated date of discharge: 09/20/22 Subjective Patient overall feeling much better than yesterday. No further abdominal pain or nausea. She is still little bit nauseated at breakfast but improved with taking antiemetics and was able to eat lunch and dinner. No diarrhea or constipation. Her thigh is less painful and less red today. She asks about how to keep the MRSA infections from continuing to happen Physical Exam Constitutional: WD/WN, vitals as above Neck: trachea midline, no thyromegaly Respiratory: normal respiratory effort, lungs clear to auscultation Cardiovascular: RRR, no murmur, no edema Chest (Breasts): Chest: normal inspection of chest Gastrointestinal (Abdomen): normal bowel sounds, soft, nontender, no hepatosplenomegaly Musculoskeletal: Extremities: extremities normal to inspection; no cyanosis and no clubbing Skin: + lesion (Open wound draining purulent fluid right anterior thigh) and + erythema (Mild surrounding erythema and induration right thigh wound) Neurologic: moves all extremities and awake; no focal motor deficits Psychiatric: A+Ox3, euthymic affect Lymphatic: no lymphedema Results & Data Results & Data Vital Signs (Past 12 Hours) Vital Signs Temp Pulse Resp BP Pulse Ox O2 Del Method 09/19/22 14:39 36.9 C 81 16 95/61 L 92 Room Air 09/19/22 07:20 Room Air 09/19/22 08:48 78 128/85 Laboratory Results No labs to review today PG Care Time/CCT Total # of Minutes Spent Total Time Spent with Patient: Total time spent is greater than 50% in coordination of care (as documented) at patient's floor/unit and/or counseling patient: Coding Level of Care Code 30119 SUB INP/OBS CARE 2/35MIN Diagnoses Cellulitis L03.115 Laterality: right Site of cellulitis: extremity Site of cellulitis of extremity: lower extremity Abscess of right thigh L02.415 Nausea & vomiting R11.2 Chronic diastolic congestive heart failure I50.32 MRSA (methicillin resistant Staphylococcus aureus) infection A49.02 Interstitial lung disease J84.9 Lumbar disc herniation M51.26 Rheumatoid arthritis M06.9 Chronic steroid use Hypothyroidism E03.9 Asthma J45.909 (1) Cellulitis Laterality: right Site of cellulitis: extremity Site of cellulitis of extremity: lower extremity Qualified Code(s): L03.115 - Cellulitis of right lower limb
[2022-09-19] MEDS: MUPIROCIN 2% OINT 22 GM TUBE EXT SCH (20:29)
--- NOTE | 2022-09-20 06:14 | Electrocardiogram Report ---
Test Reason : Blood Pressure : / mmHG Vent. Rate : 087 BPM Atrial Rate : 087 BPM P-R Int : 134 ms QRS Dur : 080 ms QT Int : 402 ms P-R-T Axes : 045 -04 017 degrees QTc Int : 483 ms Normal sinus rhythm Low voltage QRS Possible Septal infarct , age undetermined Poor R wave progression, consider anterior ND vs. lead placement vs. LVH Nonspecific T wave abnormality Abnormal ECG When compared with ECG of 10-APR-2020 14:40, Septal infarct is now Present Confirmed by Kevyn Villanueva ([id number]) on 09/20/2022 6:13:36 AM Referred By: Confirmed By:Kevyn Villanueva
[2022-09-20] MEDS: LEVOTHYROXINE SODIUM 175 MCG TABLET PO SCH (06:40)
[2022-09-20 07:22] LABS: Basophils # (auto) 0.18 K/uL (0-0.2); Eosinophils # (auto) 0.42 K/uL (0-0.50); Eosinophils % (auto) 4.6 %; Hematocrit (blood only) 40.1 % (37.0-47.0); Hemoglobin 12.7 g/dl (12.0-16.0); Immature Granulocytes # (auto) 0.29 K/uL (0.01-0.20); Immature Granulocytes % (auto) 3.2 %; Lymphocytes # (auto) 2.55 K/uL (1.2-3.4); Mean Corpuscular Hemoglobin 31.2 pg (25.0-34.0); Mean Corpuscular Hgb Conc 31.7 g/dL (32.0-36.0); Mean Corpuscular Volume 98.5 fL (80.0-100.0); Mean Platelet Volume 9.3 fL (9.4-12.4); Monocytes # (auto) 0.62 K/uL (0.11-0.59); Monocytes % (auto) 6.8 %; Neutrophils # (auto) 5.04 K/uL (1.40-6.50); Neutrophils % (auto) 55.4 %; Platelet Count 332 K/uL (130-400); RDW Coefficient of Variation 15.4 % (11.5-14.5); RDW Standard Deviation 55.5 fL (36.4-46.3); Red Blood Count 4.07 M/uL (4.20-5.40)
[2022-09-20 07:46] LABS: Albumin Globulin Ratio 0.9 (0.9-2); Albumin Level 3.4 gm/dl (3.4-5.0); BUN Creatinine Ratio 14.7 (10-20); Bilirubin,Total 0.3 mg/dl (0.2-1.0); C Reactive Protein 1.36 mg/dl (0-0.5); Creatinine Clr Calc Pharmacy 49.6 ml/min; Est GFR (African American) 44.4 ml/min; Est GFR (Non-African American) 38.3 ml/min; Globulin 3.6 gm/dl (2.5-4.0); Potassium 4.4 mmol/L (3.5-5.1)
[2022-09-20] MEDS: CALCIUM 600MG + VIT D 400 IU TAB PO SCH (08:12)
[2022-09-20] MEDS: NALTREXONE HCL 50 MG TAB PO SCH (08:13)
[2022-09-20] MEDS: DICLOFENAC SODIUM 75 MG TABCR PO SCH (08:15)
[2022-09-20] MEDS: GABAPENTIN 400 MG CAP PO SCH ×2 (08:15→13:14)
[2022-09-20] MEDS: predniSONE 1 MG TAB PO SCH (08:15)
[2022-09-20] MEDS: SPIRONOLACTONE 25 MG TAB PO SCH (08:15)
[2022-09-20] MEDS: PANTOprazole 40 MG in SYRINGE 0 ML IV SCH (08:16)
[2022-09-20] MEDS: dilTIAZem HCL 240 MG CAPCR PO SCH (08:16)
[2022-09-20] MEDS: LOSARTAN POTASSIUM 50 MG TAB PO SCH (08:16)
[2022-09-20] MEDS: HYDROXYCHLOROQUINE SULFATE 200 MG TAB PO SCH (08:17)
[2022-09-20] MEDS: MUPIROCIN 2% OINT 22 GM TUBE EXT SCH (08:17)
[2022-09-20] MEDS: SODIUM CHLORIDE 0.9% 500 ML IV SCH ×2 (11:16→17:13)
[2022-09-20] MEDS: DAPTOmycin 300 MG in SYRINGE 0 ML IV SCH (12:06)
[2022-09-20] MEDS ORDERED: SODIUM CHLORIDE 0.9% 500 ML IV SCH (18:45)
[2022-09-20 19:13] LABS: BUN Creatinine Ratio 17.1 (10-20); Calcium 8.8 mg/dl (8.6-10.3); Creatinine Clr Calc Pharmacy 48.9 ml/min; Est GFR (African American) 43.7 ml/min; Est GFR (Non-African American) 37.7 ml/min; Potassium 4.8 mmol/L (3.5-5.1)
--- NOTE | 2022-09-20 19:35 | Discharge Summary ---
Discharge Summary Date of Service September 20, 2022 Notes For Next Care Provider Medication Changes From Visit HOLD losartan, lasix, spironolactone for acute kidney injury Hold mycophenolate, Humira, Plaquenil until antibiotics done and infection cleared Admission HPI Per Admitting Provider Ashtyn is a 56-year-old female with a past medical history of SYLVESTER, cellulitis, asthma, GERD, hypogammaglobulinemia, lumbar disc disease, elevated tTG-IgA, pulmonary hypertension, pre-DM Ashtyn is seen at the bedside. Reports in the last 4-5 months has had trouble with groin and leg abscesses. Has gotten lumps with purulent discharge. Lsat 2 had purlent material expressed with palpation, but then went away without antibiotics. 1x on the buttock as well which then improved with keflex/bactrim x4 weeks when then improved it. NO culture at the time. End of July [place] [facility] [place] on the labia which drained spontaneously and which culture was positive for MRSA sensitive to doxy/bactrim. Took bactrim and clindamycin gel. This past Thursday had another abscess, was seen in ER thursday night for R leg redness and pain suspicious for another abscess and was placed on doxy. Has it opened and drained in ER and was d/richard on keflex/bactrim. Has been taking keflex/bactrim sinc eER visit Seen in ER, 'feels horrible stomach is upset and I cant keep antibiotics down.' Has mostly nausea and mild pain. Leg actually seems to get better, packing is slowly coming out and i sless red but still hurts. 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 No chest pain or chest pain +abdominal fullness + nausea. -vomiting No diarrhea. +constipation Has not taken lasix. No change in SoB. On O2 2-4L qHS chronically bleed into CPAP at [id number]. Cellcept- last dose Humira: Took last , takes every other week Pred daily 4mg, last took Sat Hydroxychloroquine- Sat Medical History: Reviewed Medications: Reviewed Surgical History: Reviewed Family history: Reviewed Allergies: Reviewed Social History: Reviewed Code Status: Full Principal Dx & Hospital Course #1 = Principal Diagnosis (1) Cellulitis: Right thigh abscess with cellulitis Last seen 09/15/2022 and had I&D performed of the abscess while in the ER. Right thigh culture was positive for MRSA with clindamycin and tetracycline resistance. Daptomycin, rifampin, Bactrim, and vancomycin sensitive Was discharged on Bactrim/Keflex No leukocytosis on admission, this has resolved from 14 from 3 days prior ESR up to 95 from 56, CRP elevated at 3.9 but now trending downward on the day of discharge Lactate mildly elevated at 2.1 and now normalized, Procalcitonin is normal Patient remains afebrile Ultrasound: 1. 5.5 x 2 x 4.3 cm edematous focus within the right thigh which favors cellulitis. 2. No large/drainable fluid collection. Tiny 1.4 x 1.2 x 1 cm hypoechoic right thigh abnormality. This could reflect a residual tiny fluid collection or draining tract. much improved on daptomycin- Plan to discharge home on linezolid 600 Mg p.o. twice daily x8 more days as she had adverse GI side effects with high doses of Keflex and Bactrim Patient has had multiple recurrent right lower extremity abscesses and infections in the preceding year. Suspect this is due to immune suppression in the setting of CellCept, prednisone, and Humira use. 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 (2) Abscess of right thigh: Above (3) Nausea & vomiting: Likely related to high doses of Keflex and Bactrim for prolonged periods Now much improved after starting Pepcid, Protonix, and receiving GI cocktail, Zofran, and Phenergan Tolerating regular diet (4) FLAKO (acute kidney injury): creatinine kiki to 1.5 on the day of discharge She was given 1 L normal saline and creatinine remained at 1.5 on repeat check later in the day BUN elevated at 26 Suspect from previous hypotension and dehydration from vomiting in the setting of taking Lasix, spironolactone, and losartan Hold Lasix, spironolactone, losartan Give prescription to check BMP on Thursday with results to go to PCP (5) Chronic diastolic congestive heart failure: Chronic diastolic CHF hold Lasix, losartan, spironolactone until recheck labs on Thursday. Creatinine mildly elevated at 1.5 today, gave 1 L normal saline No signs of overt volume overload -follow BMP on Thursday (6) MRSA (methicillin resistant Staphylococcus aureus) infection: As above Eradicate with mupirocin ointment to the nares and chlorhexidine body wash which she can buy as an outpatient (7) Interstitial lung disease: ILD/pulmonary fibrosis/pulmonary hypertension with hypoxia and exertional dyspnea, rheumatoid arthritis Suspected to have predominantly right heart failure rather than ILD/fibrosis CellCept started by pulmonaryfollow-up for suspected ILD related to RA Continued on Lasix with notable improvement on this in the past She is on hydroxychloroquine, mycophenolate, Humira, and daily 4 mg prednisone Humira, CellCept temporarily held in the setting of acute infection-Would not restart until after antibiotics are completed (8) Lumbar disc herniation: Continue gabapentin (9) Rheumatoid arthritis: As above (10) Chronic steroid use: Continue current chronic dose, no need for stress dose steroids at this point (11) Hypothyroidism: TSH mildly low at 0.023 in 05/2022 Continue home levothyroxine (12) Asthma: No acute issues Celiac EGD 2020 with villous blunting and positive IgA Gluten-free diet Morbid obesity Outpatient continued chronic weight management SYLVESTER Suspected MGUS Follows with oncology, no obvious progression to MM. Continue outpatient follow-up Prediabetes A1c 5.4% 2021 Follow [facility] Plan Disposition-Much improved, doing very well, discharged home today Discharge Exam Constitutional WD/WN, vitals as above Neck trachea midline, no thyromegaly Respiratory normal respiratory effort, lungs clear to auscultation Cardiovascular RRR, no murmur, no edema Chest (Breasts) Chest: normal inspection of chest Gastrointestinal (Abdomen) normal bowel sounds, soft, nontender, no hepatosplenomegaly Musculoskeletal Extremities: extremities normal to inspection; no cyanosis and no clubbing Skin + lesion (Open wound draining purulent fluid right anterior thigh) and + erythema (Mild surrounding erythema and induration right thigh wound) induration around right thigh wound much improved Neurologic moves all extremities and awake; no focal motor deficits Psychiatric A+Ox3, euthymic affect Lymphatic no lymphedema Updated Medication List Medication Instructions Recorded Confirmed Type cyclobenzaprine 10 mg tablet 10 mg PO TID PRN Muscle Spasm 11/25/17 09/18/22 History fexofenadine 180 mg tablet 180 mg PO HS 11/25/17 09/18/22 History (Silvia Allergy) hydroxychloroquine 200 mg tablet 200 mg PO BID 04/09/18 09/18/22 History (Plaquenil) albuterol sulfate 90 mcg/actuation 1 inh inhalation QID PRN Wheezing 04/05/20 09/18/22 History aerosol inhaler calcium carbonate 500 mg-vitamin 1 tab PO QAM 04/05/20 09/18/22 History D3 3.125 mcg (125 unit) tablet promethazine 25 mg tablet 25 mg PO DIRECTED PRN 02/18/21 09/18/22 History NAUSEA/VOMITING ondansetron 4 mg disintegrating 4 mg PO Q6H PRN nausea and 02/19/21 09/18/22 Rx tablet vomiting #12 tabs adalimumab 40 mg/0.8 mL 40 mg subcut Q14D 09/02/21 09/18/22 History subcutaneous syringe kit (Humira) Portable Oxygen #1 ea 09/11/21 08/25/22 Rx furosemide 40 mg tablet 80 mg PO DAILY #180 tabs 10/08/21 09/18/22 Rx diltiazem HCl 240 mg capsule,24 240 mg PO DAILY #90 caps 12/27/21 09/18/22 Rx hr,extended release spironolactone 25 mg tablet 25 mg PO QAM #90 tabs 12/27/21 09/18/22 Rx esomeprazole magnesium 20 mg 20 mg PO DAILY 12/31/21 09/18/22 History capsule,delayed release (Nexium 24HR) lorazepam 0.5 mg tablet 0.5 mg PO DAILY PRN anxiety #30 02/24/22 09/18/22 Rx tabs diclofenac sodium 75 mg 75 mg PO BID #180 tabs 05/13/22 09/18/22 Rx tablet,delayed release losartan 100 mg tablet 100 mg PO QAM #90 tabs 05/15/22 09/18/22 Rx ibandronate 150 mg tablet (Boniva) 150 mg PO MONTHLY 06/04/22 09/18/22 History prednisone 1 mg tablet 4 mg PO DAILY 06/04/22 09/18/22 History gabapentin 400 mg capsule 400 mg PO TID #270 caps 07/29/22 09/18/22 Rx mycophenolate mofetil 250 mg 500 mg PO BID #360 caps 08/06/22 09/18/22 Rx capsule empagliflozin 25 mg tablet 25 mg PO DAILY #90 tabs 08/18/22 09/18/22 Rx levothyroxine 175 mcg tablet 175 mcg PO .COMPLEX #90 tabs 08/18/22 09/18/22 Rx naltrexone 50 mg tablet 25 mg PO DAILY #45 tabs 08/25/22 09/18/22 Rx ondansetron 8 mg disintegrating 8 mg PO Q8H PRN nausea and 09/17/22 09/18/22 Rx tablet vomiting #30 tabs linezolid 600 mg tablet 600 mg PO BID 8 days #16 tabs 09/20/22 Rx mupirocin 2 % topical ointment 1 applic EXT BID apply inside 09/20/22 Rx nares 9 days #15 grams Hospital Stay Data Consultations 09/18/22 15:38 ED Decision to Admit Stat Diagnostic Imagining Performed 09/18/22 12:06 [facility] Stat Pending Results Patient Have Any Pending Studies at Discharge: No Discharge Instructions Given to Patient (Per Discharging Provider) Please finish out 8 more days of the oral antibiotic called linezolid, twice a day for your skin infection/abscess. Continue the packing changes every other day and dressing changes daily or as needed. You should HOLD your Plaquenil, Humira, and Cell Cept until you have completed the antibiotics and the infection is cleared. You should use the mupirocin ointment inside your nose x 9 more days and use chlorhexidine soap 3 times per week all over your body to get rid of your MRSA infection. Your kidney function was down slightly on the day of discharge. It is recommended that you HOLD your lasix, spironolactone, and losartan for now and have your blood work checked on Thursday. Your PCP can then let you know if it's ok to restart your medications. Total Time Total Time Spent Total Time Spent (In Minutes): 40 minutes Coding Level of Care Code 09533 INP/OBS DISCH >30 MIN Diagnoses Cellulitis L03.115 Laterality: right Site of cellulitis: extremity Site of cellulitis of extremity: lower extremity Abscess of right thigh L02.415 Nausea & vomiting R11.2 FLAKO (acute kidney injury) N17.9 Chronic diastolic congestive heart failure I50.32 MRSA (methicillin resistant Staphylococcus aureus) infection A49.02 Interstitial lung disease J84.9 Lumbar disc herniation M51.26 Rheumatoid arthritis M06.9 Chronic steroid use Hypothyroidism E03.9 Asthma J45.909
[2022-09-21] MEDS ORDERED: PANTOprazole 40 MG TAB PO SCH (09:00)
== END 2022-09-20 20:08 | disposition home or self-care (01) ==
LOC: ED 11:42 → 3W 11:42 → SUATTDRO 16:21 → 3W 19:39